=== PATIENT | male | born 1960 | race Caucasian/White ===

== ENCOUNTER → 2020-11-13 02:35 | Outpatient (CLI) | payer MEDICARE, SELFPAY ==
[2020-11-13 20:23] LABS: SARS-CoV-2 RNA PCR Negative
== END ==
PROVIDERS: PCP Emergency Medicine; Visit Provider Internal Medicine Gastroenterology
DX: Z01.812 Encounter for preprocedural laboratory examination (principal); Z20.822 Contact with and (suspected) exposure to COVID-19
CPT/HCPCS: C9803; U0003; U0005

== ENCOUNTER 2020-11-17 01:31 | Day surgery (SDC) | payer MEDICARE, SELFPAY ==
[2020-11-03 14:32] VITALS: BMI 33.7
[2020-11-17 07:59] VITALS: BP 140/80; PULSE 77; RESP 18; TEMP 37.1; O2SAT 98; BMI 33.4
[2020-11-17 08:12] LABS: Glucose Point of Care 326 (65-105)
[2020-11-17] MEDS: LACTATED RINGERS 1,000 ML 150 ML IV CONT (08:12)
--- NOTE | 2020-11-17 08:16 | PM.HPGS ---
History of Present Illness History of Present Illness Consent: Risks, benefits, and alternatives have been discussed and questions answered. Patient agrees to proceed with procedure. Chief complaint: neoplasm screening Narrative: Trevin Thomas Jr. is a 60 year old male referred for colon cancer screening. Review of Systems Review of Systems: All systems reviewed & are unremarkable except as noted in HPI and below PMFSH Past Medical History Medical History HTN (hypertension) Social History Social History Smoking status: Never smoker Alcohol intake: never Substance use: never Substance use type: does not use Living arrangements: with family Spiritual care concerns: No Meds Home Medications and Allergies Home Medications Medication Instructions Recorded Confirmed Type albuterol sulfate 90 mcg/actuation See Rx Instructions .ROUTE .COMPLEX 08/05/19 11/17/20 History aerosol inhaler sitagliptin 100 mg tablet 100 mg PO DAILY 08/05/19 11/17/20 History glimepiride 4 mg tablet See Rx Instructions .ROUTE 03/29/20 11/17/20 Rx .COMPLEX #90 tablet metformin 1,000 mg tablet See Rx Instructions .ROUTE 03/29/20 11/17/20 Rx .COMPLEX #180 tablet lisinopril 20 mg tablet 20 mg PO DAILY #90 tablet 04/22/20 11/17/20 Rx simvastatin 10 mg tablet 10 mg PO DAILY #90 tablet 04/22/20 11/17/20 Rx omeprazole [Prilosec] 40 mg PO DAILY 11/03/20 11/17/20 History Allergies Allergy/AdvReac Type Severity Reaction Status Date / Time Penicillins Allergy Unknown Unknown Verified 11/17/20 07:57 Vital Signs Vital Signs - 24 hr 11/17/20 07:59 Temperature 37.1 C Pulse Rate 77 Respiratory Rate 18 Blood Pressure 140/80 Pulse Oximetry 98 Exam Const: General: alert Orientation/consciousness: patient oriented x3 Resp: Auscultation: clear to auscultation bilaterally Cardio: Rhythm: regular rhythm GI: GI Palp: Yes Soft to palpation and No Tenderness to palpation present (GI) Neuro: General: patient oriented x3
--- NOTE | 2020-11-17 08:40 | WPDANESEPPF ---
Anes - Initial Pre Proc Eval Procedure: Operation Date: 11/17/20 09:00 Proposed Procedures p Screening Colonoscopy - Luis Ch MD Date/Time: 11/17/20 08:40 Surgeon: Luis Ch MD Pre Op Diagnosis: neoplasm screening Patient Data Age: 60 Gender: M Height: 6 ft Weight: 111.7 kg Last Vital Signs Temp 98.7 F 11/17/20 07:59 Pulse 77 11/17/20 07:59 Resp 18 11/17/20 07:59 BP 140/80 11/17/20 07:59 Pulse Ox 98 11/17/20 07:59 Allergies Allergy/AdvReac Type Severity Reaction Status Date / Time Penicillins Allergy Unknown Unknown Verified 11/17/20 07:57 Home Medications Medication Instructions Recorded Confirmed Type albuterol sulfate 90 mcg/actuation See Rx Instructions .ROUTE .COMPLEX 08/05/19 11/17/20 History aerosol inhaler sitagliptin 100 mg tablet 100 mg PO DAILY 08/05/19 11/17/20 History glimepiride 4 mg tablet See Rx Instructions .ROUTE 03/29/20 11/17/20 Rx .COMPLEX #90 tablet metformin 1,000 mg tablet See Rx Instructions .ROUTE 03/29/20 11/17/20 Rx .COMPLEX #180 tablet lisinopril 20 mg tablet 20 mg PO DAILY #90 tablet 04/22/20 11/17/20 Rx simvastatin 10 mg tablet 10 mg PO DAILY #90 tablet 04/22/20 11/17/20 Rx omeprazole [Prilosec] 40 mg PO DAILY 11/03/20 11/17/20 History Laboratory Tests 11/17/20 08:07 POC Capillary Glucose 326 mg/dl H mg/dl (65-105) Patient hx anesthesia problems: none Family hx anesthesia problems: none PMFSH Past Medical History Medical History HTN (hypertension) Social History Social History Smoking status: Never smoker Alcohol intake: never Substance use: never Substance use type: does not use Living arrangements: with family Spiritual care concerns: No Anes - Eval Final PreProcedure Day of Procedure 11/17/20 08:40 Patient weight: obese Heart: regular rate and rhythm Lungs: clear to auscultation Airway: Mallampati scale class III Neurological: alert and oriented Last oral intake: >/= 8 hours ASA classification: III Emergent: no Anesthetic plan: proceed Anesthesia type and monitoring: general GIVS (Accu check 326; used 7-up for prep) and standard monitoring Informed Consent: The patient's anesthetic plan and its attendant risks and benefits were discussed with the patient/family/POA. Questions were solicited and answers provided to the satisfaction of the patient/family/POA.
[2020-11-17 09:09] VITALS: BP 110/68; PULSE 75; RESP 25; O2SAT 95
[2020-11-17 09:18] VITALS: BP 121/76; PULSE 74; RESP 23; O2SAT 95
[2020-11-17 09:29] VITALS: BP 120/78; PULSE 70; RESP 22; O2SAT 97
== END 2020-11-17 09:44 | disposition home or self-care (01) ==
PROVIDERS: PCP Emergency Medicine; Visit Provider Internal Medicine Gastroenterology
PROC: 0DJD8ZZ Inspection of Lower Intestinal Tract, Via Natural or Artificial Opening Endoscopic (ICD-10-PCS; CPT 45378; principal; 2020-11-17 09:00)
DX: Z12.11 Encounter for screening for malignant neoplasm of colon (principal); I10 Essential (primary) hypertension; Z79.84 Long term (current) use of oral hypoglycemic drugs; Z79.51 Long term (current) use of inhaled steroids; E66.9 Obesity, unspecified; Z68.33 Body mass index [BMI] 33.0-33.9, adult
CPT/HCPCS: G0121; 82948; J2704; J7120

== ENCOUNTER 2023-02-08 11:42 | Outpatient (CLI) | payer MEDICARE, SELFPAY ==
--- NOTE | ~2023-02-08 | XR_ITS ---
Lumbosacral Spine: AP and lateral views Clinical History: Pain Findings: Mild to moderate compression fracture of L1 present. Probable minimal compression fracture the suprapubic region of L2. There is mild facet arthropathy from L4 through S1. There is moderate de generative disc narrowing at L1-L2. The sacroiliac joints are normally outlined. Impression: Compression fractures of L1 and L2, as detailed above. Mild degenerative spondylosis, as above. Reviewed, dictated and finalized at location M. Impression: Compression fractures of L1 and L2, as detailed above. Mild degenerative spondylosis, as above.
--- NOTE | ~2023-02-08 | XR_ITS ---
Thoracic spine: Clinical Indication: Back pain AP and lateral views were performed. There are compression fracture deformities of T10, T11, and T12, age indeterminate. There is normal a lignment of the vertebrae no subluxation evident. There are bridging anterior osteophytes from T9 thr ough T12, compatible DISH. The intervertebral disc spaces appear normal. Paravertebral soft tissues a ppear normal. Impression: Compression fractures of T10, T11, and T12, age indeterminate. DISH of the lower thoracic spine. Reviewed, dictated and finalized at location M. Impression: Compression fractures of T10, T11, and T12, age indeterminate. DISH of the lower thoracic spine.
== END 2023-02-08 11:43 | disposition home or self-care (01) ==
PROVIDERS: PCP Emergency Medicine; Visit Provider Emergency Medicine
DX: M48.14 Ankylosing hyperostosis [Forestier], thoracic region (principal); M47.896 Other spondylosis, lumbar region
CPT/HCPCS: 72070; 72100

== ENCOUNTER 2023-03-22 12:42 | Outpatient (CLI) | payer MEDICARE, SELFPAY ==
--- NOTE | ~2023-03-22 | MR_ITS ---
EXAMINATION: MR lumbar spine wo con DATE: 03/22/2023 13:40 INDICATION: Back pain. Collapsed vertebra, not elsewhere classified. TECHNIQUE: Magnetic resonance imaging (MRI) of the lumbar spine was performed without intravenous con trast. Sequences included sagittal T2-weighted FSE, sagittal T2-weighted FS FSE, sagittal T1-weighted FSE, and axial T2-weighted FSE. COMPARISON: Lumbar spine radiograph 02/08/2023 FINDINGS: There is 7 degrees levocurvature of lumbar spine. There is chronic anterior wedging of T11- L1 vertebral bodies. There is 3 mm retrolisthesis of L1 on L2. There is mildly decreased disc height at L1-L2 with endplate remodeling. The distal spinal cord signal intensity is normal. The conus medul moreno is at T12-L1. The following disc levels are specifically discussed: L1-L2: The disc is bulging and has an annular fissure. There is mild bilateral facet joint osteoarthr itis. There is mild bilateral neural foraminal stenosis. There is mild central canal stenosis. L2-L3: The disc is bulging. There is mild bilateral facet joint osteoarthritis. There is mild bilater al neural foraminal stenosis. There is mild central canal stenosis. L3-L4: The disc is bulging. There is mild bilateral facet joint osteoarthritis. There is mild bilater al neural foraminal stenosis. There is no central canal stenosis. L4-L5: The disc is bulging. There is severe bilateral facet joint osteoarthritis. There is mild bilat eral neural foraminal stenosis. There is mild central canal stenosis. L5-S1: The disc does not extend beyond the endplate margin. There is severe bilateral facet joint ost eoarthritis. There is no neural foraminal stenosis. There is no central canal stenosis. IMPRESSION: 1. Moderate lumbar spondylosis. Reviewed, dictated and finalized at location L.
--- NOTE | ~2023-03-22 | MR_ITS ---
EXAMINATION: MR thoracic spine wo con DATE: 03/22/2023 13:41 INDICATION: Thoracic compression fractures TECHNIQUE: Magnetic resonance imaging (MRI) of the thoracic spine was performed without intravenous c ontrast. Sagittal localizer T1-weighted FSE of the cervicothoracic spine was obtained. Sequences incl uded sagittal T2-weighted FSE, sagittal T2-weighted FS FSE, sagittal T1-weighted FSE and axial T1-alejandro ghted SE. Postcontrast sequences included axial T2-weighted FSE, sagittal T1-weighted FS FSE, and axi al T1-weighted FS SE. COMPARISON: CT abdomen pelvis dated 01/25/2013 FINDINGS: 10 degrees lower thoracic dextroscoliosis. One-2 mm retrolisthesis T12 on L1. 2 mm retrolisthesis L1 on L2. There is also mild kyphosis in the lower thoracic spine related to chronic compression fractur es with approximately 1/4 anterior vertebral body height loss at T11, T12 and L1. There is T2 hyperin tense edema-like signal change along the inferior endplate of L1 and at the margins of a Schmorl's no de along the superior endplate of L2 with no interval change in the Schmorl's node or degree of verte bral body height loss at L1 to suggest acute fracture. Several additional small Schmorl's nodes in th e more cephalad thoracic spine. Moderate disc height loss at T4-T5 through T9-T10 and at T11-T12 thro ugh L1-L2. T1 hyperintense hemangiomas at L1. No other pathologic marrow replacing process. Small dis c protrusions from T4-T5 through T8-T9. Disc bulges at T11-T12 and T12-L1. Annular fissure with disc extrusion at L1-L2 with disc material extending up to 3 mm cephalad and caudal to the level of the en dplates. These result in multilevel mild central canal stenosis which is greatest at L1-L2. There is slight indentation of the ventral surface of the cord associated with the disc protrusions on the rig ht at T5-T6, and the left at T7-T8 and bilaterally at T4-T5. There is normal spinal cord signal. The conus terminates at L1. There is multilevel thoracic facet osteoarthritis, mild in the upper two thir ds of the thoracic spine and moderate to severe in the lower thoracic spine resulting in mild neural foraminal stenosis on the right at T9-T10 through T11-T12 and on the left at T9-T10 and T10-T11. T2 h yperintense right renal cysts the largest measuring 1.2 cm maximal diameter. Paravertebral soft tissu es are otherwise unremarkable. IMPRESSION: 1. Moderate thoracic spondylosis with chronic compression fractures at T11-L1. Reviewed, dictated and finalized at location A.
== END 2023-03-22 12:43 | disposition home or self-care (01) ==
PROVIDERS: PCP Emergency Medicine; Visit Provider Emergency Medicine
DX: S22.000A Wedge compression fracture of unspecified thoracic vertebra, initial encounter for closed fracture (principal); M43.04 Spondylolysis, thoracic region; M48.56XA Collapsed vertebra, not elsewhere classified, lumbar region, initial encounter for fracture; M43.06 Spondylolysis, lumbar region
CPT/HCPCS: 72146; 72148

== ENCOUNTER 2024-08-05 08:17 | Outpatient (CLI) | payer MEDICARE, SELFPAY ==
--- NOTE | 2024-08-05 08:26 | EST_ITS ---
Patient Info Name: Trevin Thomas Age: 63 years : 1960 Gender: Male Ht: 72 in Wt: 249 lbs BSA: 2.43 m2 Exam Date: 08/05/2024 9:07 AM Exam Location: Echo Lab Patient Status: Outpatient Admit Date: 08/05/2024 Staff Ordering Physician: Dalton Oliva MD Dimpling Machine Operator: Nadja Yin RDCS Attending Provider: Dalton Oliva MD Referring Physician: Hazel MUSA; Exercise Technologist: Freida Woods RDCS Exercise Physician: Garrett Alfaro DO Exam Type: CA stress echo Study Info Indications R06.09 - Other forms of dyspnea Treadmill exercise stress echocardiogram is performed. Summary 1. 1. Negative Alfonso exercise stress test for ischemic ST changes by ECG criteria. However, patient achieved only 82% MPHR for age group which reduces sensitivity of the test. 2. 2. Reduced functional capacity, achieving 7 METs of workload. 3. 3. Appropriate HR response to exercise. 4. 4. Appropriate HR recovery at 1 minute post exercise. 5. 5. Negative stress echocardiogram for ischemia by wall motion analysis. 6. 6. Patient informed of the above results. Stress Echo Findings Left Ventricle Appropriate increase in LV endocardial thickening with systole. Appropriate augmentation of contractility with systole. No wall motion abnormality. Left Ventricle Normal LV systolic function, no wall motion abnormality. Protocol: Alfonso Stress ECG Details Stage: REST Duration (min): 1 min : 11 sec Speed (mph): 0.0 Grade (%): 0 HR (bpm): 84 SBP (mmHg): 127 DBP (mmHg): 67 METS: --- Stage: REST Duration (min): 35 min : 49 sec Speed (mph): 0.0 Grade (%): 0 HR (bpm): 90 SBP (mmHg): 127 DBP (mmHg): 67 METS: --- Stage: STAGE 1 Duration (min): 1 min : 0 sec Speed (mph): 1.7 Grade (%): 10 HR (bpm): 103 SBP (mmHg): 127 DBP (mmHg): 67 METS: --- Stage: STAGE 1 Duration (min): 2 min : 0 sec Speed (mph): 1.7 Grade (%): 10 HR (bpm): 108 SBP (mmHg): 127 DBP (mmHg): 67 METS: --- Stage: STAGE 1 Duration (min): 3 min : 0 sec Speed (mph): 1.7 Grade (%): 10 HR (bpm): 113 SBP (mmHg): 170 DBP (mmHg): 74 METS: --- Stage: STAGE 2 Duration (min): 1 min : 0 sec Speed (mph): 2.5 Grade (%): 12 HR (bpm): 119 SBP (mmHg): 170 DBP (mmHg): 74 METS: --- Stage: STAGE 2 Duration (min): 2 min : 0 sec Speed (mph): 2.5 Grade (%): 12 HR (bpm): 123 SBP (mmHg): 174 DBP (mmHg): 73 METS: --- Stage: STAGE 2 Duration (min): 2 min : 23 sec Speed (mph): 0.0 Grade (%): 0 HR (bpm): 128 SBP (mmHg): 174 DBP (mmHg): 73 METS: --- Stage: RECOVERY Duration (min): 0 min : 36 sec Speed (mph): 0.0 Grade (%): 0 HR (bpm): 120 SBP (mmHg): 174 DBP (mmHg): 73 METS: --- Stage: RECOVERY Duration (min): 1 min : 36 sec Speed (mph): 0.0 Grade (%): 0 HR (bpm): 112 SBP (mmHg): 174 DBP (mmHg): 73 METS: --- Stage: RECOVERY Duration (min): 2 min : 36 sec Speed (mph): 0.0 Grade (%): 0 HR (bpm): 106 SBP (mmHg): 165 DBP (mmHg): 70 METS: --- Stage: RECOVERY Duration (min): 3 min : 3 sec Speed (mph): 0.0 Grade (%): 0 HR (bpm): 104 SBP (mmHg): 165 DBP (mmHg): 70 METS: --- Rest HR: 90 bpm Peak HR: 129 bpm Rest Sys BP: 127 mmHg Peak Sys BP: 174 mmHg Max Pred HR: 157 bpm % Max Pred HR: 82 % Target HR: 133 bpm Max RPP: 22,446 bpm*mmHg Sargent Score: 3 Termination Reason: Reached target heart rate or workload Cardiac Symptoms: Shortness of breath Max ST Seg Deviation: 0.50 mm Total Time: 5 min : 23 sec [place] BP: 67 mmHg [place] BP: 73 mmHg Angina Score: None Total METS: 7.1 Resting ECG Sinus rhythm, IRBBB. Stress ECG No ST changes. Arrhythmias None. Report Signatures Stress ECG Echo
== END 2024-08-05 08:18 | disposition home or self-care (01) ==
LOC: ANHCARD 08:18
PROVIDERS: PCP Emergency Medicine; Visit Provider Emergency Medicine
DX: R06.09 Other forms of dyspnea (principal); I10 Essential (primary) hypertension
CPT/HCPCS: 93351

== ENCOUNTER 2024-09-29 11:38 | Inpatient (IN) | payer MEDICARE, SELFPAY ==
[2024-09-29] VITALS (7 sets, daily range): BP systolic 142–176; BP diastolic 64–76; PULSE 65–80; RESP 16–28; TEMP 36.6–36.9; O2SAT 21–98
--- NOTE | ~2024-09-29 | XR_ITS ---
EXAMINATION: [id number] DATE: 10/06/2024 16:36 INDICATION: Right pleural effusion status post thoracentesis. TECHNIQUE: A single frontal view of the chest was obtained. COMPARISON: Chest CT 10/02/2024, chest single view 10/03/2024 FINDINGS: There are small pleural effusions. There is mild atelectasis at the lung bases. No pneumoth orax. The heart size is normal. IMPRESSION: 1. Small pleural effusions with improvement on the right status post thoracentesis. 2. Mild atelectasis at the lung bases. Reviewed, dictated and finalized at location A. MENDER IMPRESSION: 1. Small pleural effusions with improvement on the right status post thoracente sis. 2. Mild atelectasis at the lung bases.
--- NOTE | ~2024-09-29 | XR_ITS ---
CHEST RADIOGRAPH, PA AND LATERAL CLINICAL HISTORY: pleural effusion . COMPARISON: 09/29/2024 TECHNIQUE: PA and lateral views of the chest. FINDINGS Postthoracentesis imaging demonstrated decreased right-sided pleural effusion when compared with prev ious examination without right-sided pneumothorax. Remainder of examination is unchanged. IMPRESSION: As above. Reviewed, dictated and finalized at location A. IMPRESSION: As above.
--- NOTE | ~2024-09-29 | XR_ITS ---
EXAMINATION: XR chest 1V portable DATE: 10/03/2024 08:50 INDICATION: Pleural effusion. TECHNIQUE: A single frontal view of the chest was obtained. COMPARISON: Chest single view 09/30/2024, chest CT 10/02/2024 FINDINGS: There is a moderate-sized right pleural effusion. There are airspace opacities at the lung bases, likely atelectasis. No pneumothorax. The heart size is normal. IMPRESSION: 1. Stable moderate-sized right pleural effusion. Reviewed, dictated and finalized at location A. YSTEMS ENGINEER
--- NOTE | ~2024-09-29 | XR_ITS ---
Portable chest x-ray Comparison: 10/06/2024 Clinical History: Pleural effusion Findings: Possible minimal right pleural effusion, unchanged. Lungs are otherwise clear. Cardiomedi astinal silhouette is stable. Bones and soft tissues are unremarkable. Impression: Possible minimal right pleural effusion, unchanged. Reviewed, dictated and finalized at location M. LOADER Impression: Possible minimal right pleural effusion, unchanged.
--- NOTE | ~2024-09-29 | US_ITS ---
Limited Abdominal Sonogram: Real-time sonographic imaging of the right upper quadrant was performed. Clinical History: Thrombocytopenia Findings: The liver demonstrates nodular contour without mass lesion or biliary dilatation. Small am ount of upper abdominal ascites present.. Main portal vein demonstrates normal direction of flow. The gallbladder is well distended, and appears normal with no evidence of gallstone or wall thickening. The common bile duct measures 3 mm. The visualized aorta and IVC are unremarkable. Pancreas obscured by bowel gas shadowing. Spleen is enlarged, measuring 20.6 cm in length. Impression: Cirrhotic liver with associated splenomegaly, as detailed above. Small amount of abdominal ascites. Reviewed, dictated and finalized at location . ELLER Impression: Cirrhotic liver with associated splenomegaly, as detailed above. Small amount of abdominal ascites.
--- NOTE | ~2024-09-29 | CT_ITS ---
EXAMINATION: CTA chest PE protocol DATE: 09/29/2024 20:14 LOOPER FIXER INDICATION: Positive d-dimer with shortness of breath TECHNIQUE: Computed tomographic angiography (CTA) of the chest was performed with 100 mL Omnipaque-35 0 intravenous contrast. The dose-length product was 690.60 mGy-cm. Maximum intensity projection 3D-re constructions of the aorta and other arteries were constructed by the technologist on a separate work station. COMPARISON: None. FINDINGS/OBSERVATIONS: PULMONARY ARTERIES: No filling defect is identified within the main or proximal pulmonary artery. The main pulmonary artery is not enlarged. THORACIC AORTA: No aneurysmal dilatation or dissection is present. The great vessels are intact LUNGS: Large right-sided pleural effusion with adjacent compressive atelectasis. The rest of the lungs are clear MEDIASTINUM: No morphologically suspicious or pathologically enlarged lymph nodes are identified with in the mediastinum or bilateral axilla. BONES OF THE CHEST: No acute fracture. No significant degenerative disease. No lytic or blastic lesions. HEART: The heart is within the upper limits of normal for size, without pericardial effusion. IMPRESSION: No pulmonary embolus. No thoracic aortic dissection. Large right-sided pleural effusion with adjacent compressive atelectasis. Reviewed, dictated and finalized at location A. ER FIXER
--- NOTE | ~2024-09-29 | US_ITS ---
EXAMINATION: US thoracentesis DATE: 09/30/2024 14:53 INDICATION: pleural effusion TECHNIQUE: The procedure and its risks, benefits, and alternatives were discussed with the patient. P otential risks discussed included bleeding, infection, and pneumothorax. The patient understood the r isks and agreed to proceed. The skin was prepped and draped in sterile fashion. 1% lidocaine was used for local anesthesia. Under ultrasound guidance, a 5 Fr catheter with trochar was advanced into the right pleural effusion. Fluid was aspirated. The catheter was removed, and a dressing was applied. Th ere were no immediate complications. FINDINGS: Ultrasound images demonstrate a right pleural effusion and the catheter within the fluid. IMPRESSION: 1. Successful ultrasound-guided thoracentesis yielding 1000 mL of priti-colored fluid. Reviewed, dictated and finalized at location A. S ASSISTANT INSTITUTIONAL SALES IMPRESSION: 1. Successful ultrasound-guided thoracentesis yielding 1000 mL of priti-colore d fluid.
--- NOTE | ~2024-09-29 | US_ITS ---
EXAMINATION: US thoracentesis DATE: 10/06/2024 17:16 INDICATION: pleural effusion TECHNIQUE: The procedure and its risks, benefits, and alternatives were discussed with the patient. P otential risks discussed included bleeding, infection, and pneumothorax. The patient understood the r isks and agreed to proceed. The skin was prepped and draped in sterile fashion. 1% lidocaine was used for local anesthesia. Under ultrasound guidance, a 5 Fr catheter with trochar was advanced into the right pleural effusion. Fluid was aspirated. The catheter was removed, and a dressing was applied. Th ere were no immediate complications. FINDINGS: Ultrasound images demonstrate a right pleural effusion and the catheter within the fluid. IMPRESSION: 1. Successful ultrasound-guided thoracentesis yielding 500 mL of priti-colored fluid. Reviewed, dictated and finalized at location A. GER DAIRY
--- NOTE | ~2024-09-29 | XR_ITS ---
EXAMINATION: XR chest 2V DATE: 09/29/2024 14:48 INDICATION: Hemoptysis. TECHNIQUE: Frontal and lateral views of the chest were obtained. COMPARISON: Chest 2 views 09/27/2024 FINDINGS: There is a small right pleural effusion. There are airspace opacities at right lung base. N o pneumothorax. The heart size is normal. There is chronic anterior wedging of multiple vertebral bod ies. IMPRESSION: 1. Stable airspace opacities are lung base, consistent with atelectasis versus pneumonia. 2. Stable small right pleural effusion. Reviewed, dictated and finalized at location A. R AND BLENDER
--- NOTE | ~2024-09-29 | CT_ITS ---
EXAMINATION:CT diagnostic chest wo con DATE: 10/02/2024 13:25 INDICATION: Pleural effusion. TECHNIQUE: Computed tomography (CT) of the chest was performed without intravenous contrast. Automate d exposure control and iterative reconstruction technique were employed. The dose-length product (DLP ) was 389.13 mGy-cm. COMPARISON: Chest CT 09/29/2024 FINDINGS: There is a moderate-sized right pleural effusion. There is a trace left pleural effusion. T here is a 4 mm nodule in right middle lobe, likely benign. There are dependent airspace opacities missy aterally, likely atelectasis. The heart size is normal. There are coronary artery calcifications. No pericardial effusion. There is liver surface nodularity, consistent with cirrhosis. Splenomegaly is n oted. 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 There is mild periportal lymphadenopathy, likely reactive. Th ere is a small volume of ascites. There is edema in the fat in the abdomen. There is mild thoracic sp ondylosis. There is chronic anterior wedging of multiple vertebral bodies. IMPRESSION: 1. Moderate-sized right pleural effusion. 2. Cirrhosis of the liver with portal venous hypertension. 3. Small volume of ascites. Reviewed, dictated and finalized at location A. EGNATOR
--- OUTSIDE RECORDS SUMMARY | 2024-09-29 12:21 | XMS_ITS | Referral Summary ---
Author Organization [facility] [address] Address [address] [place] [address] Care Team Providers Care Hadoop Architect Name Role Phone Dalton Oliva MD Primary Care Provide r Allergies Active Allergy Reactions Criticality Noted Date Comments Penicillins Unknown 09/25/2017 Shrimp Unknown 09/25/2017 Medications simvastatin (ZOCOR) 10 mg tablet Take 10 mg by mouth nightly. Active SITagliptin (JANUVIA) 50 mg tabletIndication s:type 2 diabetes mellitus Take 50 mg by mouth daily. Active glimepiride (AMARYL) 2 mg tabletIndication s:type 2 diabetes mellitus Take 2 mg by mouth daily before breakfast. Active lisinopril (PRINIVIL,ZESTRI L) 20 mg tablet Take 20 mg by mouth daily. Active metFORMIN (GLUCOPHAGE) 500 mg tablet Take 500 mg by mouth 2 (two) times a day with meals. 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 Gender Identity Not on file Sexual Orientation Not on file Last Filed Vital Signs Vital Sign Reading Time Taken Comments Blood Pressure 128/80 09/25/2017 2:05 PM LABORATORY CUREMAN Pulse 77 09/25/2017 2:05 PM LABORATORY CUREMAN Temperature - - Respiratory Rate - - Oxygen Saturation 96% 09/25/2017 2:05 PM LABORATORY CUREMAN Inhaled Oxygen Concentration - - Weight 118.8 kg (262 lb) 09/25/2017 2:05 PM LABORATORY CUREMAN Height 180.3 cm (5' 11 ) 09/25/2017 2:05 PM LABORATORY CUREMAN Body Mass Index 36.54 09/25/2017 2:05 PM LABORATORY CUREMAN Plan of Treatment Not on file Insurance MEDICARE Care Teams Hadoop Architect Relationship Specialty Start Date End Date Dalton Oliva MD [address] [place] [address] PCP - General 09/03/13
--- OUTSIDE RECORDS SUMMARY | 2024-09-29 12:21 | XMS_ITS | Clinical Summary ---
Author Organization [facility] [address] Address [address] [place] [address] Care Team Providers Care Emergency Communications Officer Name Role Phone Dalton Oliva MD Primary [...] Noted Date Diagnosed Date Chest discomfort 09/25/2017 Medical History Medical History Date Comments Diabetes mellitus (HCC) Hyperlipidemia Hypertension Family History Medical History Relation Name Comments COPD Father Cancer Mother Relation Name Status Comments Father Mother Social History Tobacco Use Types Packs/Day Years Used Date Smoking Tobacco: Never Smokeless Tobacco: Never Alcohol Use Standard Drinks/Week Comments No 0 (1 standard drink = 0.6 oz pur e alcohol) Personal Safety Answer Date Recorded Getting School Help Needed Not on file 11/03 Sex and Gender Information Value Date Recorded Sex Assigned at Not on file Legal 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 Gender Identity Not on file Sexual Orientation Not on file Obstetrics History Last Filed Vital Signs Vital Sign Reading Time Taken Comments Blood Pressure 128/80 09/25/2017 2:05 PM CAE ENGINEER Pulse 77 09/25/2017 2:05 PM CAE ENGINEER Temperature - - Respiratory Rate - - Oxygen Saturation 96% 09/25/2017 2:05 PM CAE ENGINEER Inhaled Oxygen Concentration - - Weight 118.8 kg (262 lb) 09/25/2017 2:05 PM CAE ENGINEER Height 180.3 cm (5' 11 ) 09/25/2017 2:05 PM CAE ENGINEER Body Mass Index 36.54 09/25/2017 2:05 PM CAE ENGINEER Plan of Treatment Not on file Insurance MEDICARE Care Teams Emergency Communications Officer Relationship Specialty Start Date End Date Dalton Oliva MD [address] [place] [address] PCP - General 09/03/13
--- NOTE | 2024-09-29 13:51 | ED_ITS ---
HPI - SOB/Dyspnea General Chief Complaint: Shortness of Breath/Dyspnea <Suma Brioens PA-C - Last Filed: 10/01/24 18:41> Stated Complaint: shortness of breath, coughing up blood x1 day <Suma Briones PA-C - Last Filed: 10/01/24 18:41> Time Seen by Provider: 09/29/24 13:51 <Suma Briones PA-C - Last Filed: 10/01/24 18:41> Focused HPI: This is a 63 year old male that presents to the ER for hemoptysis. This started this morning. Reports he was recently diagnosed with pneumonia 2 days ago and started on oral antibiotics. Reports shortness of breath. Reports some chest tightness. Denies fever. GENERAL: Well-appearing, well-nourished, and in no acute distress. HEAD: Normocephalic, atraumatic. CHEST: Clear to auscultation. ?No respiratory distress. HEART: Regular rate and rhythm.? NEURO: ?Alert and oriented x3. Patient screened in triage and initial orders placed.? ?Additional care and disposition to be based upon?diagnostic testing and treatment. <Suma Briones PA-C - Last Filed: 10/01/24 18:41> History of Present Illness HPI Narrative: Agree with the workup as described above. Patient has history of hypertension, hyperlipidemia type 2 diabetes but no history of any malignancy or cancer. No risk factors for DVT or PE noted. <Jacob Briones MD - Last Filed: 09/29/24 21:16> Related Data Home Medications: Home Medications ?Medication ?Instructions ?Recorded ?Confirmed ?Last Taken ?Type doxycycline hyclate 100 mg capsule 100 mg PO Q12H 09/29/24 09/29/24 09/28/24 History prednisone 50 mg tablet 50 mg PO DAILY 09/29/24 09/29/24 09/28/24 History <JHON Najera Last Filed: 10/01/24 18:41> Allergies/Adverse Reactions: Allergies Allergy/AdvReac Type Severity Reaction Status Date / Time Penicillins Allergy Unknown Unknown Verified 09/30/24 14:06 <Suma Briones PA-C - Last Filed: 10/01/24 18:41> Review of Systems 2 Review of Systems: As reviewed above in HPI <Jacob Briones MD - Last Filed: 09/29/24 21:16> [facility] Past Medical History Medical History: Medical History (Updated 10/01/24 @ 18:41 by Suma Briones PA-C) Pancytopenia Bronchitis Balanitis circinata Type 2 diabetes mellitus Diabetes mellitus HTN (hypertension) HLD (hyperlipidemia) <Suma Briones PA-C - Last Filed: 10/01/24 18:41> Surgical History Surgical History: Surgical History History of hernia repair History of eye surgery x19 <Suma Briones PA-C - Last Filed: 10/01/24 18:41> Family History Family History: Family History Father Family history of chronic obstructive pulmonary disease, Onset Age: 72 Mother Family history of malignant neoplasm, Onset Age: 68 <Suma Briones PA-C - Last Filed: 10/01/24 18:41> Social History Social History: Social History Smoking status: Former smoker Alcohol intake: former Substance use: former Substance use type: does not use Last use: back in college over 40 years ago Do You Feel Safe in your Home?: Yes Lack of Transportation: No Lack of Food: Never True Current Housing: I Have Housing Concerned About Future Housing: No Difficulty Paying Gas/Electric Bills: No Difficulty Paying for Meds: YES Currently Unemployed: No Education: Associate Degree Difficulty w/ Childcare or Family Care: No Living arrangements: with family Spiritual care concerns: No <Suma Briones PA-C - Last Filed: 10/01/24 18:41> Exam 2 Narrative: GENERAL: Ill-appearing but not any acute distress, answering all questions appropriately HEAD: [Normocephalic, atraumatic.] EYES: Left eye blind and sclerosed, right eye with full range of motion and reactive pupil ENT: Nares clear, no rhinorrhea or epistaxis. Mucous membranes moist. NECK: Supple. CHEST: Coarse breath sounds in the bases more so on the right side compared to the left, no appreciable wheezing, tachypnea is noted but no conversational dyspnea. HEART: [Regular rate and rhythm]. No murmur heard. [Normal peripheral pulses.] ABDOMEN: [Soft, nondistended], [nontender], [No rigidity or guarding] EXTREMITIES: Normal range of motion. [No edema.] SKIN: Warm, dry, no rash. NEURO: [No focal deficits]. Alert and oriented [x3.] PSYCH: [Normal mood and affect.] <Jacob Briones MD - Last Filed: 09/29/24 21:16> Course Vital Signs Vital signs: Vital Signs Temperature 97.8 F 09/29/24 12:33 Pulse Rate 80 09/29/24 12:33 Respiratory Rate 20 09/29/24 12:33 Blood Pressure 153/64 H 09/29/24 12:33 Pulse Oximetry 94 09/29/24 12:33 Oxygen Delivery Room Air 09/29/24 12:33 Temperature 97.3 F L 10/01/24 14:00 Pulse Rate 77 10/01/24 16:00 Respiratory Rate 20 10/01/24 14:05 Blood Pressure 136/59 L 10/01/24 14:00 Pulse Oximetry 96 10/01/24 14:00 Oxygen Delivery Room Air 10/01/24 13:51 <Suma Briones PA-C - Last Filed: 10/01/24 18:41> Vital Signs Temperature 97.8 F 09/29/24 12:33 Pulse Rate 80 09/29/24 12:33 Respiratory Rate 20 09/29/24 12:33 Blood Pressure 153/64 H 09/29/24 12:33 Pulse Oximetry 94 09/29/24 12:33 Oxygen Delivery Room Air 09/29/24 12:33 Temperature 97.3 F L 10/01/24 14:00 Pulse Rate 77 10/01/24 16:00 Respiratory Rate 20 10/01/24 14:05 Blood Pressure 136/59 L 10/01/24 14:00 Pulse Oximetry 96 10/01/24 14:00 Oxygen Delivery Room Air 10/01/24 13:51 <Jacob Briones MD - Last Filed: 09/29/24 21:16> MDM - SOB/Dyspnea MDM Narrative Medical decision making narrative: 63-year-old male presenting for coughing up flex of rust-colored versus dark red blood. He was recently diagnosed with a pneumonia 2 days prior and started on oral antibiotics but is not sure which kind. He states he has been feeling subjective shortness of breath and dyspnea. He is slightly dyspnea care with the tachypnea in the low 20s but saturating 97% on room air without any tachycardia. Blood pressure within normal range without any severe elevation. He is ill-appearing but not in any distress. Respirations are noted to have some coarse breath sounds more so on the right side compared to left. No wheezing appreciated. Considerations presently for pneumonia, influenza, COVID, RSV. Intrathoracic process such as pleural effusion or thromboembolic event such as a PE or less likely. No chest discomfort, nausea, vomiting, abdominal pain or back pain. Was otherwise in his normal state of health. Workup ordered including a CBC, CMP, PT, PTT, D-dimer, chest x-ray and EKG. Chest x-ray appears to have some pleural effusion versus pneumonia on the right side. He was placed on azithromycin and Rocephin and given a fluid bolus. Workup shows pancytopenia with a hemoglobin of 11.4, white count 2.6, platelet count of 34,000. D-dimer markedly elevated 2.53, normal coag studies otherwise. Electrolytes within normal range, normal renal function, normal glucose and normal hepatic function. COVID flu and RSV swabs are negative. CT angiography was ordered given his high D-dimer with suspicion for potential intrathoracic process. CTA shows no PE, no thoracic aortic dissection but there is a large right-sided pleural effusion with some adjacent compressive atelectasis. Heart within normal limits without any pericardial effusion. This could be a parapneumonic infection given his symptoms and less likely to be a hemothorax given the informed nature of the fluid. Patient has not had any hemoptysis while here in the emergency department. I discussed the case with the hospitalist and he recommended getting Hematology-Oncology on board for his pancytopenia. Spoke to Dr. Garcia from Heme/onc who recommended trending his CBC to make sure that there is improvement with treatment of a potential infection/PNA. Thinks this could be a consumptive process but will plan for potential bone marrow biopsy inpatient. Recommendations that if his platelets were to go under 20,000 to transfuse at that time. Recommend trending and seeing if they go above 50,000 where he will feel comfortable with a thoracentesis. Will see the patient on inpatient basis for further workup. Spoke again to the hospitalist Dr. Allison and relayed these recommendations. Patient was accepted to a telemetry monitored bed at this time. Patient is informed of the plan and comfortable with admission. He was doing better after antibiotics and felt subjectively less dyspneic and did not have any further episodes of hemoptysis during the ED visit. <Jacob Briones MD - Last Filed: 09/29/24 21:16> Medical Records Attestation: I reviewed the patient's medical records. <Jacob Briones MD - Last Filed: 09/29/24 21:16> Lab Data Attestation: I reviewed the patient's lab results. <Jacob Briones MD - Last Filed: 09/29/24 21:16> Result diagrams: 10/01/24 07:18 10/01/24 07:18 <Suma Briones PA-C - Last Filed: 10/01/24 18:41> Labs: Lab Results 09/29/24 09/29/24 Range/Units 15:35 18:35 WBC 2.6 L (4.5-10.0) K/mm3 RBC 3.74 L (4.6-6.20) M/mm3 Hgb 11.4 L (14.0-18.0) g/dL Hct 34.8 L (42.0-52.0) % MCV 93.0 (80-100) fl MCH 30.5 (26-34) pg MCHC 32.8 (32-36) g/dl RDW 15.1 H (11.5-14.5) % Plt Count 34 L (150-375) k/mm3 MPV 12.0 H (7.4-10.4) fl Immature Gran % (Auto) Not Reportable Neut % (Auto) Not Reportable Lymph % (Auto) Not Reportable Summers % (Auto) Not Reportable Eos % (Auto) Not Reportable Baso % (Auto) Not Reportable Lymph # (Auto) Not Reportable Summers # (Auto) Not Reportable Eos # (Auto) Not Reportable Baso # (Auto) Not Reportable Abs Immat Gran (auto) Not Reportable Absolute Neuts (auto) Not Reportable Absolute Nucleated RBC Not Reportable Total Counted 100 Neutrophils % (Manual) 53 (46-73) % Lymphocytes % (Manual) 35.0 (18-44) % Monocytes % (Manual) 12 H (3-9) % Nucleated RBC % Not Reportable Abs Lymphs (Manual) 0.91 L (1.1-4.5) K/mm3 Abs Monocytes (Manual) 0.31 (0.1-0.90) K/mm3 Platelet Estimate Decreased (Adequate) Large Platelets Present % Immature Plt Fraction 6.0 (0.9-11.2) % Anisocytosis 1+ Schistocytes None seen PT 14.0 (11.1-14.7) Seconds INR 1.1 APTT 29.2 (22.3-36.8) Seconds D-Dimer 2.53 H (<0.48) ug/mL Sodium 140 (137-145) mmol/L Potassium 3.7 (3.4-5.0) mmol/L Chloride 108 H (98-107) mmol/L Carbon Dioxide 23 (22-30) mmol/L Anion Gap 9 (4-12) mmol/L BUN 12 (9-20) mg/dL Creatinine 0.57 L (0.7-1.3) mg/dL Estim Creat Clear Calc 145 ml/min Estimated GFR > 60 (59 - ) Glucose 85 (65-110) mg/dL Calcium 8.3 L (8.4-10.2) mg/dL Total Bilirubin 1.1 (0.2-1.3) mg/dL AST 74 H (17-59) U/L ALT 43 (6-50) U/L Alkaline Phosphatase 125 (38-126) U/L Total Protein 7.0 (6.3-8.2) g/dL Albumin 3.4 L (3.5-5.1) g/dL Influenza A (RT-PCR) Negative (Negative) Influenza B (RT-PCR) Negative (Negative) RSV (RT-PCR) Negative (Negative) SARS-CoV-2 RNA (RT-PCR) Negative (Negative) <Suma Briones PA-C - Last Filed: 10/01/24 18:41> Lab Results 09/29/24 09/29/24 Range/Units 15:35 18:35 WBC 2.6 L (4.5-10.0) K/mm3 RBC 3.74 L (4.6-6.20) M/mm3 Hgb 11.4 L (14.0-18.0) g/dL Hct 34.8 L (42.0-52.0) % MCV 93.0 (80-100) fl MCH 30.5 (26-34) pg MCHC 32.8 (32-36) g/dl RDW 15.1 H (11.5-14.5) % Plt Count 34 L (150-375) k/mm3 MPV 12.0 H (7.4-10.4) fl Immature Gran % (Auto) Not Reportable Neut % (Auto) Not Reportable Lymph % (Auto) Not Reportable Summers % (Auto) Not Reportable Eos % (Auto) Not Reportable Baso % (Auto) Not Reportable Lymph # (Auto) Not Reportable Summers # (Auto) Not Reportable Eos # (Auto) Not Reportable Baso # (Auto) Not Reportable Abs Immat Gran (auto) Not Reportable Absolute Neuts (auto) Not Reportable Absolute Nucleated RBC Not Reportable Total Counted 100 Neutrophils % (Manual) 53 (46-73) % Lymphocytes % (Manual) 35.0 (18-44) % Monocytes % (Manual) 12 H (3-9) % Nucleated RBC % Not Reportable Abs Lymphs (Manual) 0.91 L (1.1-4.5) K/mm3 Abs Monocytes (Manual) 0.31 (0.1-0.90) K/mm3 Platelet Estimate Decreased (Adequate) Large Platelets Present % Immature Plt Fraction 6.0 (0.9-11.2) % Anisocytosis 1+ Schistocytes None seen PT 14.0 (11.1-14.7) Seconds INR 1.1 APTT 29.2 (22.3-36.8) Seconds D-Dimer 2.53 H (<0.48) ug/mL Sodium 140 (137-145) mmol/L Potassium 3.7 (3.4-5.0) mmol/L Chloride 108 H (98-107) mmol/L Carbon Dioxide 23 (22-30) mmol/L Anion Gap 9 (4-12) mmol/L BUN 12 (9-20) mg/dL Creatinine 0.57 L (0.7-1.3) mg/dL Estim Creat Clear Calc 145 ml/min Estimated GFR > 60 (59 - ) Glucose 85 (65-110) mg/dL Calcium 8.3 L (8.4-10.2) mg/dL Total Bilirubin 1.1 (0.2-1.3) mg/dL AST 74 H (17-59) U/L ALT 43 (6-50) U/L Alkaline Phosphatase 125 (38-126) U/L Total Protein 7.0 (6.3-8.2) g/dL Albumin 3.4 L (3.5-5.1) g/dL Influenza A (RT-PCR) Negative (Negative) Influenza B (RT-PCR) Negative (Negative) RSV (RT-PCR) Negative (Negative) SARS-CoV-2 RNA (RT-PCR) Negative (Negative) <Jacob Briones MD - Last Filed: 09/29/24 21:16> Imaging Data Attestation: I personally reviewed and interpreted this imaging study as follows: < Jacob Briones MD - Last Filed: 09/29/24 21:16> My impression: Impressions Chest X-Ray 09/29/24 14:49 IMPRESSION: 1. Stable airspace opacities are lung base, consistent with atelectasis versus pneumonia. 2. Stable small right pleural effusion. Chest CTA 09/29/24 20:12 IMPRESSION: No pulmonary embolus. No thoracic aortic dissection. Large right-sided pleural effusion with adjacent compressive atelectasis. <Jacob Briones MD - Last Filed: 09/29/24 21:16> Critical Care Time Critical Care Time Critical Care Time: No <Suma Briones PA-C - Last Filed: 10/01/24 18:41> Discharge Plan Discharge Clinical Impression: Pleural effusion on right, Acute dyspnea Pneumonia Qualifiers: Pneumonia type: due to unspecified organism Laterality: right Lung location: u nspecified part of lung Qualified Code(s): J18.9 - Pneumonia, unspecified organism <Suma Briones PA-C - Last Filed: 10/01/24 18:41> Patient Disposition: Still a Patient <Suma Briones PA-C - Last Filed: 10/01/24 18:41> Condition: Stable <Suma Briones PA-C - Last Filed: 10/01/24 18:41> Time of Disposition: 21:16 <Suma Briones PA-C - Last Filed: 10/01/24 18:41> 21:16 <Jacob Briones MD - Last Filed: 09/29/24 21:16>
--- NOTE | 2024-09-29 13:56 | ECG_ITS ---
Test Date: 2024-09-29 15:40:22 Measurements Intervals [place] Rate: 81 P: 69 NV: 190 QRS: -5 QRSD: 110 T: 43 QT: 411 QTc: 479 Interpretive Statements SINUS RHYTHM WITH SINUS ARRHYTHMIA BASELINE ARTIFACT- I, II, III, AVR NORMAL ECG No previous ECG available for comparison Electronically Signed On 09-29-2024 16:59:45 SCALEHOUSE ATTENDANT by Garrett Alfaro D.O.
[2024-09-29 16:24] LABS: Influenza A QL RT-PCR Negative (Negative); Influenza B QL RT-PCR Negative (Negative); RSV RNA, RT-PCR Negative (Negative); SARS-CoV-2 RNA PCR Negative (Negative)
--- OUTSIDE RECORDS SUMMARY | 2024-09-29 17:50 | XMS_ITS | Referral Summary ---
Author Organization [facility] [address] Address [address] [place] [address] Care Team Providers Care Security Trainer Name Role Phone Dalton Oliva MD Primary [...] on file Legal Sex Male 3:09 AM [employer]ICAN [employer] Gender Identity Not on file Sexual Orientation Not on file Last Filed Vital Signs Vital Sign Reading Time Taken Comments Blood Pressure 128/80 09/25/2017 2:05 PM [employer]ICAN [employer]KER Pulse 77 09/25/2017 2:05 PM M[employer]ICAN [employer]KER Temperature - - Respiratory Rate - - Oxygen Saturation 96% 09/25/2017 2:05 PM MEXICAN FO[employer] MAKER Inhaled Oxygen Concentration - - Weight 118.8 kg (262 lb) 09/25/2017 2:05 PM [employer]ICAN FO[employer] MAKER Height 180.3 cm (5' 11 ) 09/25/2017 2:05 PM M[employer]ICAN FO[employer] MAKER Body Mass Index 36.54 09/25/2017 2:05 PM M[employer]ICAN FOOD MAKER Plan of Treatment Not on file Insurance MEDICARE Care Teams Security Trainer Relationship Specialty Start Date End Date Dalton Oliva MD [address] [place] [address] PCP - General 09/03/13
--- OUTSIDE RECORDS SUMMARY | 2024-09-29 17:50 | XMS_ITS | Clinical Summary ---
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 Gender Identity Not on file Sexual Orientation Not on file Obstetrics History Last Filed Vital Signs Vital Sign Reading Time Taken Comments Blood Pressure 128/80 09/25/2017 2:05 PM VIRTUALIZATION ENGINEER Pulse 77 09/25/2017 2:05 PM VIRTUALIZATION ENGINEER Temperature - - Respiratory Rate - - Oxygen Saturation 96% 09/25/2017 2:05 PM VIRTUALIZATION ENGINEER Inhaled Oxygen Concentration - - Weight 118.8 kg (262 lb) 09/25/2017 2:05 PM VIRTUALIZATION ENGINEER Height 180.3 cm (5' 11 ) 09/25/2017 2:05 PM VIRTUALIZATION ENGINEER Body Mass Index 36.54 09/25/2017 2:05 PM VIRTUALIZATION ENGINEER Plan of Treatment Not on file Insurance MEDICARE Care Teams Compression Molding Machine Operator Relationship Specialty Start Date End Date Dalton Oliva MD [address] [place] [address] PCP - General 09/03/13
[2024-09-29] MEDS: LACTATED RINGERS 1,000 ML 999 ML IV CONT (17:58)
[2024-09-29] MEDS: cefTRIAXone 2 GM/NS 100 ML 2 GM/100 ML BAG IVPB (17:59)
[2024-09-29 18:49] LABS: Hematocrit 34.8 % (42.0-52.0); Hemoglobin 11.4 g/dL (14.0-18.0); Mean Corpuscular HGB Conc 32.8 g/dl (32-36); Mean Corpuscular Hemoglobin 30.5 pg (26-34); Platelet Count Result 34 k/mm3 (150-375); Red Blood Count 3.74 M/mm3 (4.6-6.20); Red Cell Distribution Width 15.1 % (11.5-14.5); White Blood Count 2.6 K/mm3 (4.5-10.0)
[2024-09-29 18:58] LABS: INR 1.1; Partial Thromboplastin Time 29.2 Seconds (22.3-36.8)
[2024-09-29 19:03] LABS: Alanine Aminotransferase 43 U/L (6-50); Albumin Level 3.4 g/dL (3.5-5.1); Alkaline Phosphatase 125 U/L (38-126); Anion Gap 9 mmol/L (4-12); Aspartate Amino Transferase 74 U/L (17-59); Bilirubin,Total 1.1 mg/dL (0.2-1.3); Blood Urea Nitrogen 12 mg/dL (9-20); Calcium 8.3 mg/dL (8.4-10.2); Carbon Dioxide 23 mmol/L (22-30); Chloride 108 mmol/L (98-107); Estimated CRCL calculation 145 ml/min; Estimated Glomerular Filt Rate > 60; Glucose 85 mg/dL (65-110); Potassium 3.7 mmol/L (3.4-5.0); Sodium 140 mmol/L (137-145)
[2024-09-29 19:04] LABS: D Dimer 2.53 ug/mL (<0.48)
[2024-09-29] MEDS: AZITHROMYCIN 500 MG/NS 250 ML 500 MG/250 ML BAG 250 MG IVPB (19:11)
[2024-09-29 19:32] LABS: Lymphocytes Absolute Manual 0.91 K/mm3 (1.1-4.5); Monocytes Absolute Manual 0.31 K/mm3 (0.1-0.90); Monocytes Percent Manual 12 % (3-9); Neutrophils Percent Manual 53 % (46-73); Platelet Estimate Decreased (Adequate); Total Cells Counted 100
[2024-09-29 19:33] LABS: Anisocytosis 1+; Large Platelets Present; Schistocytes None Seen
--- NOTE | 2024-09-29 23:41 | P.HP_ITS ---
H&P: HPI History of Present Illness Date/Time: 09/29/24 23:41 Chief Complaint: Sputum Narrative: This is a pleasant 63-year-old male with a history of obesity, mvp-eurhowa-ylaraqlzy diabetes mellitus, asthma, chronic hypertension, hyperlipidemia, history of cataract surgery at age 4 left eye now blind. Presents to [facility] on 09/29/2024 with complaint of bloody sputum. He reports presenting to an urgent care 2 days prior to admission for a cough and was diagnosed with pneumonia and prescribed antibiotics. On the day of admission in the morning he coughed up blood and motions with his fingers a small amount approximately 5 cc. Your workup demonstrated 97% O2 saturation on room air. Upon evaluation the patient was resting comfortably. WBC count 2.6, hemoglobin 11.4, platelet 34. D-dimer 2.53, serum creatinine 0.57, quad viral screen negative. CTA chest did not demonstrate PE or thoracic aortic dissection. Identifies a large right- sided pleural effusion with adjacent compressive atelectasis. Patient was given ceftriaxone and azithromycin as well as a 1 L normal saline bolus. Dr. Garcia consulted from ER due to pancytopenia. Recommended no platelet transfusion unless under 20 K. recommends trending platelet count with the hope platelets are above 50 K or we can perform thoracentesis. Review of Systems Review of Systems: All systems reviewed & are unremarkable except as noted in HPI and below (HPI) PMFSH Past Medical History Medical History Bronchitis Balanitis circinata Type 2 diabetes mellitus Diabetes mellitus HTN (hypertension) HLD (hyperlipidemia) Surgical History Surgical History History of hernia repair History of eye surgery x19 Family History Family History Father Family history of chronic obstructive pulmonary disease, Onset Age: 72 Mother Family history of malignant neoplasm, Onset Age: 68 Social History Social History Smoking status: Never smoker Alcohol intake: former Substance use: former Substance use type: crack/cocaine Last use: back in college over 40 years ago Current Housing: Decline to Answer Concerned About Future Housing: Decline to Answer Difficulty Paying Gas/Electric Bills: Decline to Answer Difficulty Paying for Meds: Decline to Answer Currently Unemployed: Decline to Answer Education: Decline to Answer Difficulty w/ Childcare or Family Care: Decline to Answer Living arrangements: with family Spiritual care concerns: No Meds Home Medications and Allergies Home Medications ?Medication ?Instructions ?Recorded ?Confirmed ?Type nystatin 100,000 unit/gram topical 1 applic topical TID #30 grams 06/09/22 09/29/24 Rx cream amlodipine 5 mg tablet See Rx Instructions .Route 01/15/24 09/29/24 Rx .COMPLEX #90 tabs simvastatin 10 mg tablet See Rx Instructions .Route 04/10/24 09/29/24 Rx .COMPLEX #90 tabs lisinopril 20 mg tablet See Rx Instructions .Route 05/19/24 09/29/24 Rx .COMPLEX #90 tabs semaglutide 14 mg tablet (Rybelsus) 14 mg PO DAILY 90 days #90 tabs 06/02/24 09/29/24 Rx albuterol sulfate 90 mcg/actuation See Rx Instructions .Route 07/03/24 09/29/24 Rx aerosol inhaler .COMPLEX #25.5 grams glimepiride 4 mg tablet See Rx Instructions .Route 08/11/24 09/29/24 Rx .COMPLEX #90 tabs metformin 1,000 mg tablet See Rx Instructions .Route 09/26/24 09/29/24 Rx .COMPLEX #180 tabs doxycycline hyclate 100 mg capsule 100 mg PO Q12H 09/29/24 09/29/24 History prednisone 50 mg tablet 50 mg PO DAILY 09/29/24 09/29/24 History Allergies Allergy/AdvReac Type Severity Reaction Status Date / Time Penicillins Allergy Unknown Unknown Verified 09/29/24 17:10 Vital Signs Vital Signs - 24 hr 09/29/24 12:33 09/29/24 16:54 09/29/24 16:54 Temperature 97.8 F 98.5 F Pulse Rate 80 77 Respiratory Rate 20 28 H Blood Pressure 153/64 H 176/76 H Pulse Oximetry 94 97 98 Oxygen Delivery Room Air Room Air Room Air 09/29/24 18:57 09/29/24 19:12 09/29/24 19:13 Temperature 98 F Pulse Rate 79 68 Respiratory Rate 26 H 25 H Blood Pressure 152/68 H 142/72 H Pulse Oximetry 95 97 97 Oxygen Delivery Room Air 09/29/24 19:13 09/29/24 21:05 09/29/24 23:01 Temperature 98.1 F 98.1 F Pulse Rate 71 65 67 Respiratory Rate 23 H 16 Blood Pressure 143/67 H 142/76 H Pulse Oximetry 97 21 L Oxygen Delivery Exam Const: General: comfortable and no acute distress Neck: Neck: supple Resp: Effort & Inspection: normal respiratory effort Other: Diminished lung sounds right lung, scant expiratory wheeze Cardio: Rate: regular rate Rhythm: regular rhythm Heart sounds: no gallops, no murmurs and no rubs GI: GI Palp: Yes Soft to palpation and No Tenderness to palpation present (GI) Extrem: Other: 1+ H&P: Results Labs Labs: Short CBC 09/29/24 Range/Units 18:35 WBC 2.6 L (4.5-10.0) K/mm3 Hgb 11.4 L (14.0-18.0) g/dL Hct 34.8 L (42.0-52.0) % Plt Count 34 L (150-375) k/mm3 BMP 09/29/24 18:35 Sodium 140 Potassium 3.7 Chloride 108 H Carbon Dioxide 23 BUN 12 Creatinine 0.57 L Glucose 85 Calcium 8.3 L Liver Function 09/29/24 Range/Units 18:35 Total Bilirubin 1.1 (0.2-1.3) mg/dL AST 74 H (17-59) U/L ALT 43 (6-50) U/L Alkaline Phosphatase 125 (38-126) U/L Albumin 3.4 L (3.5-5.1) g/dL Assessment and Plan Assessment and plan (1) Hemoptysis: Code(s): R04.2 - Hemoptysis Status: Acute (2) Pleural effusion: Code(s): J90 - Pleural effusion, not elsewhere classified Status: Acute Plan This is a pleasant 63-year-old male with a history of obesity, wbp-ursjild-paenrmsku diabetes mellitus, asthma, chronic hypertension, hyperlipidemia, history of cataract surgery at age 4 left eye now blind. Presents to [facility] on 09/29/2024 with complaint of bloody sputum. He reports presenting to an urgent care 2 days prior to admission for a cough and was diagnosed with pneumonia and prescribed antibiotics. On the day of a dmission in the morning he coughed up blood and motions with his fingers a small amount approximately 5 cc. Your workup demonstrated 97% O2 saturation on room air. Upon evaluation the patient was resting comfortably. WBC count 2.6, hemoglobin 11.4, platelet 34. D-dimer 2.53, serum creatinine 0.57, quad viral screen negative. CTA chest did not demonstrate PE or thoracic aortic dissection. Identifies a large right- sided pleural effusion with adjacent compressive atelectasis. Patient was given ceftriaxone and azithromycin as well as a 1 L normal saline bolus. Dr. Garcia consulted from ER due to pancytopenia. Recommended no platelet transfusion unless under 20 K. recommends trending platelet count with the hope platelets are above 50 K or we can perform thoracentesis. ----- Hematology will see in consultation. Will trend CBC. Diagnostic and therapeutic thoracentesis ordered pending repeat platelet count. His hemoptysis is small and he has not had any episodes in only reports dry cough since admission. Hemoglobin acceptable at 11.4. Possibly a parapneumonic effusion, will add metronidazole in addition to ceftriaxone and azithromycin. Effusion does not appear loculated. Accu-Cheks a.c. HS with insulin sliding scale. Restart SYSTEMS TECHNOLOGIST amlodipine and lisinopril. ----- SCDs. Saline lock IV. Patient wishes to be full code. Hospitalist [facility] Advance Care Plan I have confirmed that the patient's Advanced Care Plan is present, code status is documented, or surrogate decision maker is listed in patient medical record.: Yes Medication Reconciliation I have utilized all available resources to obtain, update and review the patients current medications (includes all prescriptions, OTC, herbals, cannabis, and nutritional supplements).: Yes
[2024-09-29] MEDS: metroNIDAZOLE 500 MG/ISO 100ML 500 MG/100 ML BAG 100 MG IVPB (23:53)
[2024-09-29] MEDS: amLODIPine BESYLATE 5 MG TABLET PO (23:55)
[2024-09-30] VITALS (28 sets, daily range): BP systolic 135–162; BP diastolic 61–86; PULSE 60–93; RESP 16–23; TEMP 36.5–36.8; O2SAT 92–100
--- NOTE | 2024-09-30 | ECHO_ITS ---
Patient Info Name: Trevin Thomas Age: 63 years : 1960 Gender: Male Ht: 71 in Wt: 255 lbs BSA: 2.45 m2 HR: 76 bpm BP: 145 / 74 mmHg Technical Quality: Poor Exam Date: 09/30/2024 3:33 PM Exam Location: Echo Lab Patient Status: Inpatient Admit Date: 09/29/2024 Staff Ordering Physician: Gary Dejesus MD Plumbing And Heating Mechanic: Natalya Rodriguez RDCS Attending Provider: Lida Allison MD Exam Type: CA echo dop color flow w con Study Info Indications - R/O CHF Complete two-dimensional, color flow and Doppler transthoracic echocardiogram is performed with contrast to opacify the left ventricle and to improve the deliniation of the left ventricle endocardial borders. Contrast/Agitated Saline Contrast/Ag. Saline: Definity Amount: 2.00 ml Existing IV Access: Yes Reason for Poor Study: poor echocardiographic windows Summary 1. Definity contrast administered improved wall motion interpretation. 2. Left ventricular chamber dimension is normal. 3. Left ventricular systolic function is normal, estimated at 60-65%. 4. There is moderate concentric increased left ventricular wall thickness. 5. The left ventricular diastolic function is grade I diastolic dysfunction. 6. E/e' 6 is not elevated. 7. Left atrial chamber dimension is mildly enlarged. 8. Right atrial chamber dimension is mildly enlarged. 9. No pulmonary hypertension, estimated pulmonary arterial systolic pressure is 28 mmHg. Left Ventricle E/e' 6 is not elevated. Definity contrast administered improved wall motion interpretation. Left ventricular chamber dimension is normal. Left ventricular systolic function is normal, estimated at 60-65%. There is moderate concentric increased left ventricular wall thickness. The left ventricular diastolic function is grade I diastolic dysfunction. Right Ventricle Right ventricular systolic function is normal and with normal TAPSE 2.3 cm. Right ventricular chamber dimension is normal. Left Atria Left atrial chamber dimension is mildly enlarged. Right Atria Right atrial chamber dimension is mildly enlarged. Aortic Valve The aortic valve is trileaflet. There is no aortic valve stenosis. There is no aortic valve regurgitation. Pulmonic Valve There is no pulmonic regurgitation. Mitral Valve There is no mitral valve stenosis. There is no mitral valve regurgitation. Tricuspid Valve There is no tricuspid valve regurgitation. No pulmonary hypertension, estimated pulmonary arterial systolic pressure is 28 mmHg. Pericardium/Pleural There is no pericardial effusion. Inferior Vena Cava Normal inferior vena cava with >50% collapse upon inspiration consistent with normal right atrial pressure, 5 mmHg. Aorta The aortic root size at the sinus of Valsalva is normal. Left Ventricular Outflow Tract Name Value Normal LVOT 2D LVOT Diameter 1.91 cm LVOT Doppler LVOT Peak Gradient 8 mmHg LVOT Mean Gradient 5 mmHg LVOT VTI 31.06 cm LVOT VTI/AV VTI Ratio 0.95 LVOT Stroke Volume 89.15 ml LVOT CO 7.07 l/min LVOT CI 2.89 L/min/m2 Pulmonic Valve Name Value Normal RVOT Doppler RVOT Peak Gradient 3 mmHg PV Doppler PV Peak Gradient 4 mmHg Mitral Valve Name Value Normal MV Doppler MV Decel [place] 415.67 cm/s2 MV PHT 0 s MV Area (PHT) 3.96 cm2 4.00-5.00 MV Diastolic Function MV E Peak Velocity 79.63 cm/s MV A Peak Velocity 93.83 cm/s MV E/A 0.85 MV Decel Time 0 s MV Annular TDI MV E/e' (Septal) 7.44 <=8.00 MV E/e' (Lateral) 6.31 <=8.00 MV E/e' (Average) 6.88 Tricuspid Valve Name Value Normal TV Regurgitation Doppler TR Peak Velocity 237.40 cm/s TR Peak Gradient 23 mmHg Estimated PAP/RSVP RA Pressure 5 mmHg <=5 PA Systolic Pressure 28 mmHg <36 RV Systolic Pressure 28 mmHg <36 Aorta Name Value Normal Ascending Aorta Ao Root Diameter (MM) 4.76 cm Ao Root Diam Index (MM) 1.94 cm/m2 Aortic Valve Name Value Normal AV Doppler AV Peak Velocity 151.89 cm/s AV Peak Gradient 9 mmHg AV Mean Gradient 6 mmHg AV VTI 32.55 cm AV Area (Cont Eq VTI) 2.74 cm2 >=3.00 AV Area (Cont Eq Brandon) 2.65 cm2 AV Regurgitation 2D LVOT Area 2.87 cm2 Ventricles Name Value Normal LV Dimensions 2D/MM IVS Diastolic Thickness (2D) 1.38 cm 0.60-1.00 LVID Diastole (2D) 4.74 cm 4.20-5.80 LVIW Diastolic Thickness (2D) 1.92 cm 0.60-1.00 LVID Systole (2D) 2.99 cm 2.50-4.00 LVOT Diameter 1.91 cm LV Mass (2D Cubed) 344.03 g 88.00-224.00 LV Mass Index (2D Cubed) 0.01 g/cm2 0.00-0.01 Relative Wall Thickness (2D) 0.81 LV Fractional Shortening/Ejection Fraction 2D/MM LV Fractional Shortening (2D) 38 % 25-43 LV EF (2D Teicholz) 68 % 52-72 LV Diastolic Volume (4C MOD) 157.99 ml LV EF (4C MOD) 66 % LV Diastolic Volume (2C MOD) 100.42 ml LV EF (2C MOD) 53 % LV Diastolic Volume (BP MOD) 133.02 ml 62.00-150.00 LV Diastolic Volume Index (BP MOD) 0.05 l/m2 0.03-0.07 LV Systolic Volume (BP MOD) 53.19 ml 21.00-61.00 LV Systolic Volume Index (BP MOD) 0.02 l/m2 0.01-0.03 LV EF (BP MOD) 60 % 52-72 LV Diastolic Length (4C) 8.99 cm LV Systolic Length (4C) 7.75 cm LV Stroke Volume (4C MOD) 104.82 ml Atria Name Value Normal LA Dimensions LA Dimension (MM) 3.56 cm 3.00-4.10 LA Volume (4C A-L) 95.49 ml LA Volume (BP A-L) 88.32 ml RA Dimensions RA Area (4C) 26.35 cm2 <=18.00 Report Signatures
[2024-09-30] MEDS: SIMVASTATIN 10 MG TABLET PO ×2 (00:07→11:12)
[2024-09-30 00:11] LABS: Glucose Point of Care 88 mg/dl (65-105)
[2024-09-30 05:01] LABS: Eosinophils Percent Auto 1.7 % (0-4.4); Hematocrit 37.1 % (42.0-52.0); Hemoglobin 11.7 g/dL (14.0-18.0); Immature Platelet Fraction Pct 5.3 % (0.9-11.2); Lymphocytes Absolute Auto 0.98 K/mm3 (0.9-3.2); Lymphocytes Percent Auto 41.9 % (18.3-44.2); Mean Corpuscular HGB Conc 31.5 g/dl (32-36); Mean Corpuscular Volume 95.1 fl (80-100); Mean Platelet Volume 12.6 fl (7.4-10.4); Monocytes Absolute Auto 0.2 K/mm3 (0.1-0.6); Monocytes Percent Auto 9.8 % (2.6-8.5); Neutrophils Absolute Auto 1.1 K/mm3 (1.3-6.7); Neutrophils Percent Auto 46.6 % (45.5-73.1); Red Cell Distribution Width 15.2 % (11.5-14.5); White Blood Count 2.3 K/mm3 (4.5-10.0)
[2024-09-30 05:08] LABS: Anion Gap 10 mmol/L (4-12); Blood Urea Nitrogen 11 mg/dL (9-20); Calcium 8.3 mg/dL (8.4-10.2); Carbon Dioxide 21 mmol/L (22-30); Chloride 107 mmol/L (98-107); Estimated CRCL calculation 152 ml/min; Estimated Glomerular Filt Rate > 60; Glucose 87 mg/dL (65-110); Magnesium 1.7 mg/dL (1.6-2.3); Potassium 3.9 mmol/L (3.4-5.0); Sodium 138 mmol/L (137-145)
[2024-09-30 05:12] LABS: Platelet Count Result 9 k/mm3 (150-375)
[2024-09-30 05:13] LABS: Platelet Estimate Decreased (Adequate)
[2024-09-30 05:14] LABS: Anisocytosis 1+; Hypochromasia 1+; Schistocytes None Seen
--- NOTE | 2024-09-30 05:57 | PC.NURSE ---
Consent for blood products transfusion received from patient. Patient is A&Ox4 at time of signing consent form.
[2024-09-30] MEDS: metroNIDAZOLE 500 MG/ISO 100ML 500 MG/100 ML BAG 100 MG IVPB ×3 (06:02→21:27)
[2024-09-30] MEDS: SODIUM CHLORIDE 0.9% IV 250 ML 30 ML IV CONT (07:53)
[2024-09-30 08:47] LABS: Glucose Point of Care 106 mg/dl (65-105)
[2024-09-30] MEDS: lisinopriL 20 MG TABLET PO (09:35)
[2024-09-30] MEDS: amLODIPine BESYLATE 5 MG TABLET PO (09:36)
--- NOTE | 2024-09-30 09:52 | P.PNIM_ITS ---
Progress Note: A&P Assessment and Plan (1) Hemoptysis: Code(s): R04.2 - Hemoptysis Status: Acute (2) Pleural effusion: Code(s): J90 - Pleural effusion, not elsewhere classified Status: Acute Plan This is a pleasant 63-year-old male with a history of obesity, [id number] diabetes mellitus, asthma, chronic hypertension, hy perlipidemia, history of cataract surgery at age 4 left eye now blind. Presents to [facility] on 09/29/2024 with complaint of bloody sputum. He reports presenting to an urgent care 2 days prior to admission for a cough and was diagnosed with pneumonia and prescribed antibiotics. On the day of admission in the morning he coughed up blood and motions with his fingers a small amount approximately 5 cc. Your workup demonstrated 97% O2 saturation on room air. Upon evaluation the patient was resting comfortably. WBC count 2.6, hemoglobin 11.4, platelet 34. D-dimer 2.53, serum creatinine 0.57, quad viral screen negative. CTA chest did not demonstrate PE or thoracic aortic dissection. Identifies a large right- sided pleural effusion with adjacent compressive atelectasis. Patient was given ceftriaxone and azithromycin as well as a 1 L normal saline bolus. Dr. Garcia consulted from ER due to pancytopenia. Recommended no platelet transfusion unless under 20 K. recommends trending platelet count with the hope platelets are above 50 K or we can perform thoracentesis. ----- Hematology will see in consultation. Will trend CBC. Diagnostic and therapeutic thoracentesis ordered pending repeat platelet count. His hemoptysis is small and he has not had any episodes in only reports dry cough since admission. Hemoglobin acceptable at 11.4. Possibly a parapneumonic effusion, will add metronidazole in addition to ceftriaxone and azithromycin. Effusion does not appear loculated. Accu-Cheks a.c. HS with insulin sliding scale. Restart DRIER OPERATOR amlodipine and lisinopril. ----- Pancytopenia: Status post 2U PLT Neutropenic precautions On Ceftriaxone and Azithromycin Watch for any spontaneous bleeding, NO OBVIOUS BLEEDING NOW Appreciate lottery manager consultation, consider possible myelodysplastic syndrome, bone marrow biopsy White cell of 2.3. Afebrile, no sign of infection hemoglobin 11.7 SCDs. Patient wishes to be full code. Subjective Date/time seen: 09/30/24 09:52 Interval history: Patient reports that he had a hemodialysis yesterday. Patient reports his PCP is Dr. Oliva and he saw him about 2 months ago and everything was normal. As per Patient also recently went underwent cardiac stress test which was normal. Currently patient was admitted due to pancytopenia and oncology is consulted and appreciate recommendation. Today patient had 2 units of platelet transfusion due to platelet is 9K which dropped from 34. Review of Systems Review of Systems: All systems reviewed & are unremarkable except as noted in HPI and below (HPI) Exam Const: General: comfortable and no acute distress Neck: Neck: supple Resp: Effort & Inspection: normal respiratory effort Other: Diminished lung sounds right lung, scant expiratory wheeze Cardio: Rate: regular rate Rhythm: regular rhythm Heart sounds: no gallops, no murmurs and no rubs Extrem: Other: 1+ Objective Data Vital Signs Vital Signs: Vital Signs - 24 hr 09/29/24 12:33 09/29/24 16:54 09/29/24 16:54 Temperature 97.8 F 98.5 F Pulse Rate 80 77 Respiratory Rate 20 28 H Blood Pressure 153/64 H 176/76 H Pulse Oximetry 94 97 98 Oxygen Delivery Room Air Room Air Room Air 09/29/24 18:57 09/29/24 19:12 09/29/24 19:13 Temperature 98 F Pulse Rate 79 68 Respiratory Rate 26 H 25 H Blood Pressure 152/68 H 142/72 H Pulse Oximetry 95 97 97 Oxygen Delivery Room Air 09/29/24 19:13 09/29/24 21:05 09/29/24 23:01 Temperature 98.1 F 98.1 F Pulse Rate 71 65 67 Respiratory Rate 23 H 16 Blood Pressure 143/67 H 142/76 H Pulse Oximetry 97 21 L Oxygen Delivery 09/30/24 02:01 09/30/24 03:03 09/30/24 04:56 Temperature 98.1 F 98.1 F 98.1 F Pulse Rate 67 67 69 Respiratory Rate 16 18 22 H Blood Pressure 135/68 145/82 H 143/74 H Pulse Oximetry 95 95 94 Oxygen Delivery 09/30/24 07:06 09/30/24 07:45 09/30/24 07:51 Temperature 97.8 F 98.3 F Pulse Rate 60 65 Respiratory Rate 20 20 Blood Pressure 136/72 147/78 H Pulse Oximetry 95 95 96 Oxygen Delivery Room Air 09/30/24 08:03 09/30/24 09:03 09/30/24 09:25 Temperature 97.9 F 98 F 98.3 F Pulse Rate 71 74 73 Respiratory Rate 20 20 21 H Blood Pressure 149/78 H 153/84 H 150/79 H Pulse Oximetry 96 95 94 Oxygen Delivery 09/30/24 09:26 Temperature 98.3 F Pulse Rate 74 Respiratory Rate 21 H Blood Pressure 150/79 H Pulse Oximetry 94 Oxygen Delivery Intake/Output Intake/Output: Intake & Output 09/27/24 09/28/24 09/29/24 09/30/24 23:59 23:59 23:59 23:59 Intake Total 1350 758 Balance 1350 758 Meds/Results Medications: Active Medications Generic Name Dose Route Start Last Admin Trade Name Freq PRN Reason Stop Dose Admin Acetaminophen 650 mg 09/29/24 21:05 Acetaminophen 325 Mg Tablet PO Q4H PRN Mild Pain (1-3) or Fever Albuterol 2 puff 09/29/24 23:36 Albuterol Sulfate (*Sp) Aerosol 1 Puff INHALATION Q6HRT PRN Shortness Of Breath Amlodipine Besylate 5 mg 09/29/24 23:40 09/30/24 09:36 Amlodipine Besylate 5 Mg Tablet PO 5 mg DAILY AIDAN Administration Dextrose 12.5 gm 09/29/24 23:37 Dextrose 50% 25 Gm/50 Ml Syringe IV PUSH PRN PRN Hypoglycemia Protocol Glucose 15 gm 09/29/24 23:37 Glucose Oral Gel 15 Gm Of Glucse In 37.5 Gm Tube PO PRN PRN Hypoglycemia Protocol Dextrose 1,000 mls @ 100 mls/hr 09/29/24 23:37 Dextrose 5% 1,000 Ml IVPB PRN PRN Hypoglycemia Protocol Metronidazole 500 mg in 100 mls @ 100 mls/hr 09/29/24 23:40 09/30/24 06:59 Flagyl 500 Mg/Iso Soln 100 Ml IVPB Infused Q8HR AIDAN Infusion Sodium Chloride 250 mls @ 30 mls/hr 09/30/24 05:39 09/30/24 07:53 Normal Saline Iv IV CONT 09/30/24 13:58 30 mls/hr .Q8H20M STA Administration Insulin Aspart 2 - 5 units 09/30/24 08:00 09/30/24 08:46 Insulin Aspart (*Bkc) 100 Units/Ml SUB-Q Not Given TIDWM [facility] Protocol Insulin Aspart 1 - 2 units 09/30/24 21:00 Insulin Aspart (*Bkc) 100 Units/Ml SUB-Q HS [facility] Protocol Lisinopril 20 mg 09/30/24 09:00 09/30/24 09:35 Lisinopril 20 Mg Tablet PO 20 mg QAM AIDAN Administration Ondansetron HCl 4 mg 09/29/24 21:05 Ondansetron Inj 4 Mg/2 Ml Vial IV PUSH Q4H PRN Nausea Simvastatin 10 mg 09/29/24 23:40 09/30/24 00:07 Simvastatin 10 Mg Tablet PO 10 mg QAM [facility] Administration Radiology Results: ITS Impressions Chest X-Ray 09/29/24 14:49 IMPRESSION: 1. Stable airspace opacities are lung base, consistent with atelectasis versus pneumonia. 2. Stable small right pleural effusion. Chest CTA 09/29/24 20:12 IMPRESSION: No pulmonary embolus. No thoracic aortic dissection. Large right-sided pleural effusion with adjacent compressive atelectasis. Abdomen Ultrasound 09/30/24 08:11 Impression: Cirrhotic liver with associated splenomegaly, as detailed above. Small amount of abdominal ascites. Labs Labs: Laboratory Results - last 24 hr 09/29/24 09/29/24 09/30/24 15:35 18:35 00:09 WBC 2.6 L RBC 3.74 L Hgb 11.4 L Hct 34.8 L MCV 93.0 MCH 30.5 MCHC 32.8 RDW 15.1 H Plt Count 34 L MPV 12.0 H Immature Gran % (Auto) Not Reportable Neut % (Auto) Not Reportable Lymph % (Auto) Not Reportable [place] % (Auto) Not Reportable Eos % (Auto) Not Reportable Baso % (Auto) Not Reportable Lymph # (Auto) Not Reportable [place]ard # (Auto) Not Reportable Eos # (Auto) Not Reportable Baso # (Auto) Not Reportable Abs Immat Gran (auto) Not Reportable Absolute Neuts (auto) Not Reportable Absolute Nucleated RBC Not Reportable Total Counted 100 Neutrophils % (Manual) 53 Lymphocytes % (Manual) 35.0 Monocytes % (Manual) 12 H Nucleated RBC % Not Reportable Abs Lymphs (Manual) 0.91 L Abs Monocytes (Manual) 0.31 Platelet Estimate Decreased Large Platelets Present % Immature Plt Fraction 6.0 Hypochromasia Anisocytosis 1+ Schistocytes None seen PT 14.0 INR 1.1 APTT 29.2 D-Dimer 2.53 H Sodium 140 Potassium 3.7 Chloride 108 H Carbon Dioxide 23 Anion Gap 9 BUN 12 Creatinine 0.57 L Estim Creat Clear Calc 145 Estimated GFR > 60 Glucose 85 POC Capillary Glucose 88 Calcium 8.3 L Magnesium Total Bilirubin 1.1 AST 74 H ALT 43 Alkaline Phosphatase 125 Total Protein 7.0 Albumin 3.4 L Influenza A (RT-PCR) Negative Influenza B (RT-PCR) Negative RSV (RT-PCR) Negative SARS-CoV-2 RNA (RT-PCR) Negative Blood Type 09/30/24 09/30/24 09/30/24 04:55 05:47 08:44 WBC 2.3 L RBC 3.90 L Hgb 11.7 L Hct 37.1 L MCV 95.1 MCH 30.0 MCHC 31.5 L RDW 15.2 H Plt Count 9 L* D MPV 12.6 H Immature Gran % (Auto) 0.0 Neut % (Auto) 46.6 Lymph % (Auto) 41.9 Izard % (Auto) 9.8 H Eos % (Auto) 1.7 Baso % (Auto) 0.0 L Lymph # (Auto) 0.98 Izard # (Auto) 0.2 Eos # (Auto) 0.0 Baso # (Auto) 0.0 Abs Immat Gran (auto) 0.00 Absolute Neuts (auto) 1.1 L Absolute Nucleated RBC 0.000 Total Counted Neutrophils % (Manual) Lymphocytes % (Manual) Monocytes % (Manual) Nucleated RBC % 0.0 Abs Lymphs (Manual) Abs Monocytes (Manual) Platelet Estimate Decreased Large Platelets % Immature Plt Fraction 5.3 Hypochromasia 1+ Anisocytosis 1+ Schistocytes None seen PT INR APTT D-Dimer Sodium 138 Potassium 3.9 Chloride 107 Carbon Dioxide 21 L Anion Gap 10 BUN 11 Creatinine 0.54 L Estim Creat Clear Calc 152 Estimated GFR > 60 Glucose 87 POC Capillary Glucose 106 H Calcium 8.3 L Magnesium 1.7 Total Bilirubin AST ALT Alkaline Phosphatase Total Protein Albumin Influenza A (RT-PCR) Influenza B (RT-PCR) RSV (RT-PCR) SARS-CoV-2 RNA (RT-PCR) Blood Type A Positive Hospitalist MIPS Advance Care Plan I have confirmed that the patient's Advanced Care Plan is present, code status is documented, or surrogate decision maker is listed in patient medical record.: Yes Medication Reconciliation I have utilized all available resources to obtain, update and review the patients current medications (includes all prescriptions, OTC, herbals, cannabis, and nutritional supplements).: Yes
--- NOTE | 2024-09-30 10:11 | PC.NURSE ---
Pharmacy called d/t missing medication. Med will be sent.
--- NOTE | 2024-09-30 10:39 | PC.NURSE ---
Per Hospitalist, pt ordered meal tray.
[2024-09-30 12:23] LABS: Immature Platelet Fraction Pct 3.8 % (0.9-11.2); Mean Platelet Volume 10.5 fl (7.4-10.4); Platelet Count Result 60 k/mm3 (150-375)
[2024-09-30] MEDS: IPRATROPIUM 0.5 MG/ALBUTEROL SULFATE 2.5 MG AMPUL.NEB 3 ML INHALATION ×2 (13:18→20:35)
--- NOTE | 2024-09-30 14:06 | ADMGEN ---
This patient, Trevin Thomas Jr., was admitted to [facility] Surg Room 317-02. Patient/family oriented to hospital policies and general routines including ID bracelet, bed and alarms, visiting hours, pain management, procedures, bathroom and other care routines, personal items, smoking policy, room service/diet, and visiting hours. Information on how to activate the Rapid Response Team has been discussed. Patient/Family are encouraged to report perceived risks to care and to ask questions if they do not understand what they are told or what they should do.
[2024-09-30 15:05] LABS: pH Pleural Fluid > 7.500 (7.210-7.500)
[2024-09-30 15:40] LABS: Appearance Pleural Fluid Hazy (Clear); Color Pleural Fluid Yellow (Colorless); Nucleated Cell Pleural Fluid 308 /uL (0-1000); Pleural fluid source Pleural fluid
[2024-09-30 15:41] LABS: Lymphocytes Pleural Fluid 37 %; Macrophages Pleural Fluid 57 %; Neutrophils Pleural Fluid 6 % (0-25); RBC Pleural Fluid < 2000 /uL (0-10000)
[2024-09-30] MEDS: PERFLUTREN LIPID MICROSPHERES 1.5 ML VIAL DILUTED TO 10 ML TOTAL VOLUME IV PUSH (16:10)
--- NOTE | 2024-09-30 16:46 | IVDEFINITY ---
Prior to administration of IV Definity the patient was educated on the risks and benefits of the imaging enhancing agent including potential adverse side effects. The patient verbalized understanding. Allergies were verified. No exclusion criteria were identified and at least one of the following inclusion criteria were met: 1) physician request, 2) patient technically difficult to image (per the [place] [employer] guidelines of two or more segments not discernable within the apical view), or 3) questionable left ventricular function. ?
[2024-09-30 16:53] LABS: Lactate Dehydrogenase 206 U/L (120-246)
[2024-09-30 17:05] LABS: Glucose Point of Care 157 mg/dl (65-105)
[2024-09-30] MEDS: cefTRIAXone 2 GM/NS 100 ML 2 GM/100 ML BAG IVPB (17:14)
[2024-09-30] MEDS: AZITHROMYCIN 500 MG/NS 250 ML 500 MG/250 ML BAG 250 MG IVPB (17:57)
--- NOTE | 2024-09-30 18:27 | P.CONONC_ITS ---
Assessment and Plan Assessment and plan (1) Pancytopenia: Code(s): D61.818 - Other pancytopenia Status: Acute Plan This is a 63-year-old male with obesity type 2 diabetes, hypertension and asthma came into the hospital with complain of bloody sputum. He was diagnosed with upper respiratory infection/pneumonia and prescribed antibiotics Center. Patient denies any history of liver disease. He denies any history of malignancy. Abdominal ultrasound was performed that confirmed liver cirrhosis with splenomegaly and small abdominal ascites. Chest CTA showed large right- sided pleural effusion. Patient underwent thoracentesis with removal of 1 L of fluid. His pancytopenia is secondary to liver cirrhosis and worsening of thrombocytopenia could be secondary to superimposed autoimmune thrombocytopenia. Liver cirrhosis is likely secondary to obesity and fatty liver. I will order the workup for pancytopenia that would include iron studies vitamin B12 level as well as platelet antibodies for possible ITP. If platelet count drops again then will consider starting steroids for possible ITP.. No need for bone marrow biopsy testing at this time .We will wait on cytology from the pleural fluid. I have answered all the questions to patient's satisfaction. HPI Data of Consult Date/Time: 09/30/24 18:27 Requesting Physician: Lida Allison MD Primary Care Provider: Dalton Oliva MD Consult Narrative Narrative: Trevin Thomas Jr. is a 63 year old male with history of type 2 diabetes, asthma, hyperlipidemia and obesity came into the hospital with spitting blood on the sputum. He denies any melena hematochezia. He does have some cough and was previously diagnosed with pneumonia and prescribed antibiotics. He denies any previous history of liver disease. Denies any history of malignancy. [place] [address] with dropped to 9000. Patient received 2 units of platelet with improved platelet count up to 60,000. His hemoglobin 11.4 and WBC was 2.6. CTA chest showed no evidence of pulmonary embolism but there was a large right-sided pleural effusion. Patient had ultrasound-guided right-sided thoracentesis done with 1 L of fluid removed. He denies any other complaint including diarrhea constipation melena and his weight and appetite stable. Review of Systems 2 Review of Systems: Review of System as per HPI otherwise negative PMFSH Past Medical History Medical History (Updated 09/30/24 @ 18:30 by Mookie Garcia MD) Pancytopenia Bronchitis Balanitis circinata Type 2 diabetes mellitus Diabetes mellitus HTN (hypertension) HLD (hyperlipidemia) Surgical History Surgical History History of hernia repair History of eye surgery x19 Family History Family History Father Family history of chronic obstructive pulmonary disease, Onset Age: 72 Mother Family history of malignant neoplasm, Onset Age: 68 Social History Social History Smoking status: Former smoker Alcohol intake: former Substance use: former Substance use type: does not use Last use: back in college over 40 years ago Do You Feel Safe in your Home?: Yes Lack of Transportation: No Lack of Food: Never True Current Housing: I Have Housing Concerned About Future Housing: No Difficulty Paying Gas/Electric Bills: No Difficulty Paying for Meds: YES Currently Unemployed: No Education: Associate Degree Difficulty w/ Childcare or Family Care: No Living arrangements: with family Spiritual care concerns: No Meds Home Medications and Allergies Home Medications ?Medication ?Instructions ?Recorded ?Confirmed ?Type nystatin 100,000 unit/gram topical 1 applic topical TID #30 grams 06/09/22 09/29/24 Rx cream amlodipine 5 mg tablet See Rx Instructions .Route 01/15/24 09/29/24 Rx .COMPLEX #90 tabs simvastatin 10 mg tablet See Rx Instructions .Route 04/10/24 09/29/24 Rx .COMPLEX #90 tabs lisinopril 20 mg tablet See Rx Instructions .Route 05/19/24 09/29/24 Rx .COMPLEX #90 tabs semaglutide 14 mg tablet (Rybelsus) 14 mg PO DAILY 90 days #90 tabs 06/02/24 09/29/24 Rx albuterol sulfate 90 mcg/actuation See Rx Instructions .Route 07/03/24 09/29/24 Rx aerosol inhaler .COMPLEX #25.5 grams glimepiride 4 mg tablet See Rx Instructions .Route 08/11/24 09/29/24 Rx .COMPLEX #90 tabs metformin 1,000 mg tablet See Rx Instructions .Route 09/26/24 09/29/24 Rx .COMPLEX #180 tabs doxycycline hyclate 100 mg capsule 100 mg PO Q12H 09/29/24 09/29/24 History prednisone 50 mg tablet 50 mg PO DAILY 09/29/24 09/29/24 History Allergies Allergy/AdvReac Type Severity Reaction Status Date / Time Penicillins Allergy Unknown Unknown Verified 09/30/24 14:06 Vital Signs Vital Signs - 24 hr 09/29/24 18:57 09/29/24 19:12 09/29/24 19:13 Temperature 36.6 C Pulse Rate 79 68 Respiratory Rate 26 H 25 H Blood Pressure 152/68 H 142/72 H Pulse Oximetry 95 97 97 Oxygen Delivery Room Air 09/29/24 19:13 09/29/24 21:05 09/29/24 23:01 Temperature 36.7 C 36.7 C Pulse Rate 71 65 67 Respiratory Rate 23 H 16 Blood Pressure 143/67 H 142/76 H Pulse Oximetry 97 21 L Oxygen Delivery 09/30/24 02:01 09/30/24 03:03 09/30/24 04:56 Temperature 36.7 C 36.7 C 36.7 C Pulse Rate 67 67 69 Respiratory Rate 16 18 22 H Blood Pressure 135/68 145/82 H 143/74 H Pulse Oximetry 95 95 94 Oxygen Delivery 09/30/24 07:06 09/30/24 07:45 09/30/24 07:51 Temperature 36.6 C 36.8 C Pulse Rate 60 65 Respiratory Rate 20 20 Blood Pressure 136/72 147/78 H Pulse Oximetry 95 95 96 Oxygen Delivery Room Air 09/30/24 08:03 09/30/24 09:03 09/30/24 09:25 Temperature 36.6 C 36.6 C 36.8 C Pulse Rate 71 74 73 Respiratory Rate 20 20 21 H Blood Pressure 149/78 H 153/84 H 150/79 H Pulse Oximetry 96 95 94 Oxygen Delivery 09/30/24 09:26 09/30/24 09:26 09/30/24 10:14 Temperature 36.8 C 36.6 C Pulse Rate 74 70 74 Respiratory Rate 21 H 20 21 H Blood Pressure 150/79 H 145/77 H Pulse Oximetry 94 94 94 Oxygen Delivery 09/30/24 10:15 09/30/24 10:16 09/30/24 10:30 Temperature Pulse Rate 65 68 70 Respiratory Rate 20 19 23 H Blood Pressure 138/73 Pulse Oximetry 94 94 93 Oxygen Delivery 09/30/24 10:31 09/30/24 10:46 09/30/24 11:16 Temperature Pulse Rate 76 68 93 Respiratory Rate 20 17 20 Blood Pressure 145/74 H 139/74 152/82 H Pulse Oximetry 93 94 93 Oxygen Delivery 09/30/24 11:46 09/30/24 12:16 09/30/24 13:01 Temperature Pulse Rate 85 85 82 Respiratory Rate 21 H 19 20 Blood Pressure 150/75 H 158/79 H 162/86 H Pulse Oximetry 92 92 99 Oxygen Delivery 09/30/24 13:18 09/30/24 13:28 09/30/24 16:00 Temperature Pulse Rate 83 85 72 Respiratory Rate 18 18 Blood Pressure Pulse Oximetry Oxygen Delivery Exam 2 Narrative: Lungs are clear to auscultation bilaterally Cardiovascular regular rate rhythm no murmurs Abdomen is distended bowel sounds are positive no hepatosplenomegaly Extremities no edema Results Labs 09/30/24 12:11 09/30/24 04:55 Labs: Short CBC 09/29/24 09/30/24 09/30/24 Range/Units 18:35 04:55 12:11 WBC 2.6 L 2.3 L (4.5-10.0) K/mm3 Hgb 11.4 L 11.7 L (14.0-18.0) g/dL Hct 34.8 L 37.1 L (42.0-52.0) % Plt Count 34 L 9 L* D 60 L D (150-375) k/mm3 BMP 09/29/24 09/30/24 18:35 04:55 Sodium 140 138 Potassium 3.7 3.9 Chloride 108 H 107 Carbon Dioxide 23 21 L BUN 12 11 Creatinine 0.57 L 0.54 L Glucose 85 87 Calcium 8.3 L 8.3 L Liver Function 09/29/24 Range/Units 18:35 Total Bilirubin 1.1 (0.2-1.3) mg/dL AST 74 H (17-59) U/L ALT 43 (6-50) U/L Alkaline Phosphatase 125 (38-126) U/L Albumin 3.4 L (3.5-5.1) g/dL
[2024-09-30] MEDS: guaiFENesin/DEXTROMETHORPHAN 10 ML UDC 5 ML PO (21:35)
[2024-09-30 21:38] LABS: Glucose Point of Care 164 mg/dl (65-105)
[2024-09-30 23:30] LABS: Iron 55 ug/dL (49-181)
[2024-09-30 23:45] LABS: Percent Iron Saturation 14 % (20-50)
[2024-10-01] VITALS (17 sets, daily range): BP systolic 136–148; BP diastolic 59–83; PULSE 63–86; RESP 16–20; TEMP 36.2–36.7; O2SAT 94–98
[2024-10-01 00:15] LABS: Folic Acid 13.4 ng/mL (2.76->20)
[2024-10-01] MEDS: IPRATROPIUM 0.5 MG/ALBUTEROL SULFATE 2.5 MG AMPUL.NEB 3 ML INHALATION ×4 (03:10→21:47)
[2024-10-01] MEDS: guaiFENesin/DEXTROMETHORPHAN 10 ML UDC 5 ML PO ×3 (03:20→16:58)
[2024-10-01] MEDS: metroNIDAZOLE 500 MG/ISO 100ML 500 MG/100 ML BAG 100 MG IVPB ×2 (06:29→13:33)
[2024-10-01 07:34] LABS: Hematocrit 34.1 % (42.0-52.0); Hemoglobin 10.8 g/dL (14.0-18.0); Immature Platelet Fraction Pct 5.2 % (0.9-11.2); Mean Corpuscular HGB Conc 31.7 g/dl (32-36); Mean Corpuscular Hemoglobin 29.4 pg (26-34); Mean Corpuscular Volume 92.9 fl (80-100); Mean Platelet Volume 10.6 fl (7.4-10.4); Platelet Count Result 53 k/mm3 (150-375); Red Blood Count 3.67 M/mm3 (4.6-6.20); Red Cell Distribution Width 14.6 % (11.5-14.5); White Blood Count 2.6 K/mm3 (4.5-10.0)
[2024-10-01 07:42] LABS: Alanine Aminotransferase 39 U/L (6-50); Albumin Level 3.3 g/dL (3.5-5.1); Alkaline Phosphatase 116 U/L (38-126); Anion Gap 6 mmol/L (4-12); Aspartate Amino Transferase 56 U/L (17-59); Blood Urea Nitrogen 9 mg/dL (9-20); Calcium 8.5 mg/dL (8.4-10.2); Carbon Dioxide 26 mmol/L (22-30); Chloride 108 mmol/L (98-107); Estimated CRCL calculation 139 ml/min; Estimated Glomerular Filt Rate > 60; Glucose 132 mg/dL (65-110); Potassium 4.3 mmol/L (3.4-5.0); Sodium 140 mmol/L (137-145)
[2024-10-01] MEDS: SIMVASTATIN 10 MG TABLET PO (07:56)
[2024-10-01] MEDS: lisinopriL 20 MG TABLET PO (07:57)
[2024-10-01] MEDS: amLODIPine BESYLATE 5 MG TABLET PO (07:57)
[2024-10-01 08:21] LABS: Glucose Point of Care 159 mg/dl (65-105)
[2024-10-01 11:39] LABS: Glucose Point of Care 174 mg/dl (65-105)
[2024-10-01] MEDS: BENZONATATE 100 MG CAPSULE PO ×2 (13:34→20:31)
[2024-10-01 13:51] LABS: IFOB Positive Control Positive; Immunochemical Fecal Occult Bl Positive (N)
--- NOTE | 2024-10-01 16:35 | PM.IMPN ---
Progress Note: A&P Assessment and Plan (1) Hemoptysis: Code(s): R04.2 - Hemoptysis Status: Acute (2) Pleural effusion: Code(s): J90 - Pleural effusion, not elsewhere classified Status: Acute Plan This is a pleasant 63-year-old male with a history of obesity, [id number] diabetes mellitus, asthma, chronic hypertension, hyperlipidemia, history of cataract surgery at age 4 left eye now blind. Presents to [place] [facility] on 09/29/2024 with complaint of bloody sputum. He reports presenting to an urgent care 2 days prior to admission for a cough and was diagnosed with pneumonia and prescribed antibiotics. On the day of admission in the morning he coughed up blood and motions with his fingers a small amount approximately 5 cc. Your workup demonstrated 97% O2 saturation on room air. Upon evaluation the patient was resting comfortably. WBC count 2.6, hemoglobin 11.4, platelet 34. D-dimer 2.53, serum creatinine 0.57, quad viral screen negative. CTA chest did not demonstrate PE or thoracic aortic dissection. Identifies a large right-sided pleural effusion with adjacent compressive atelectasis. Patient was given ceftriaxone and azithromycin as well as a 1 L normal saline bolus. Dr. Garcia consulted from ER due to pancytopenia. Recommended no platelet transfusion unless under 20 K. recommends trending platelet count with the hope platelets are above 50 K or we can perform thoracentesis. ----- Hematology will see in consultation. Will trend CBC. Diagnostic and therapeutic thoracentesis ordered pending repeat platelet count. His hemoptysis is small and he has not had any episodes in only reports dry cough since admission. Hemoglobin acceptable at 11.4. Possibly a parapneumonic effusion, will add metronidazole in addition to ceftriaxone and azithromycin. Effusion does not appear loculated. Accu-Cheks a.c. HS with insulin sliding scale. Restart [employer] amlodipine and lisinopril. 10/01: Evaluated by Oncologist yesterday. His pancytopenia is secondary to liver cirrhosis and worsening of thrombocytopenia could be secondary to superimposed autoimmune thrombocytopenia. Liver cirrhosis is likely secondary to obesity and fatty liver. 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 Afebrile, no sign of infection hemoglobin 11.7 Evaluated by Oncologist yesterday. His pancytopenia is secondary to liver cirrhosis and worsening of thrombocytopenia could be secondary to superimposed autoimmune thrombocytopenia. Liver cirrhosis is likely secondary to obesity and fatty liver. SCDs. Patient wishes to be full code. Subjective Date/time seen: 10/01/24 16:35 Interval history: Evaluated by Oncologist yesterday. His pancytopenia is secondary to liver cirrhosis and worsening of thrombocytopenia could be secondary to superimposed autoimmune thrombocytopenia. Liver cirrhosis is likely secondary to obesity and fatty liver. Review of Systems Review of Systems: All systems reviewed & are unremarkable except as noted in HPI and below (HPI) Exam Const: General: comfortable and no acute distress Neck: Neck: supple Resp: Effort & Inspection: normal respiratory effort Other: Diminished lung sounds right lung, scant expiratory wheeze Cardio: Rate: regular rate Rhythm: regular rhythm Heart sounds: no gallops, no murmurs and no rubs Extrem: Other: 1+ Objective Data Vital Signs Vital Signs: Vital Signs - 24 hr 09/30/24 20:00 09/30/24 20:00 09/30/24 20:35 Temperature Pulse Rate 77 71 Respiratory Rate 18 Blood Pressure Pulse Oximetry Oxygen Delivery Room Air 09/30/24 20:40 09/30/24 22:00 09/30/24 23:00 Temperature 97.7 F Pulse Rate 73 74 Respiratory Rate 18 20 Blood Pressure 137/61 Pulse Oximetry 100 100 Oxygen Delivery Room Air 10/01/24 00:00 10/01/24 03:09 10/01/24 03:14 Temperature Pulse Rate 71 71 73 Respiratory Rate 18 18 Blood Pressure Pulse Oximetry Oxygen Delivery 10/01/24 04:00 10/01/24 05:59 10/01/24 08:00 Temperature 97.1 F L Pulse Rate 63 67 Respiratory Rate 20 Blood Pressure 138/69 Pulse Oximetry 95 95 Oxygen Delivery Room Air 10/01/24 08:00 10/01/24 08:57 10/01/24 08:57 Temperature Pulse Rate 80 75 Respiratory Rate 18 Blood Pressure Pulse Oximetry 96 Oxygen Delivery Room Air 10/01/24 09:06 10/01/24 12:00 10/01/24 13:51 Temperature Pulse Rate 86 81 Respiratory Rate 18 Blood Pressure Pulse Oximetry 94 Oxygen Delivery Room Air 10/01/24 13:51 10/01/24 14:00 10/01/24 14:05 Temperature 97.3 F L Pulse Rate 71 71 76 Respiratory Rate 20 16 20 Blood Pressure 136/59 L Pulse Oximetry 96 Oxygen Delivery Intake/Output Intake/Output: Intake & Output 09/28/24 09/29/24 09/30/24 10/01/24 23:59 23:59 23:59 23:59 Intake Total 1350 2127 510 Output Total 2200 Balance 1350 -73 510 Meds/Results Medications: Active Medications Generic Name Dose Route Start Last Admin Trade Name Freq PRN Reason Stop Dose Admin Acetaminophen 650 mg 09/29/24 21:05 Acetaminophen 325 Mg Tablet PO Q4H PRN Mild Pain (1-3) or Fever Albuterol 2 puff 09/29/24 23:36 Albuterol Sulfate (*Sp) Aerosol 1 Puff INHALATION Q6HRT PRN Shortness Of Breath Albuterol/Ipratropium 3 ml 09/30/24 14:00 10/01/24 13:50 Ipratropium 0.5 Mg/Albuterol Sulfate 2.5 Mg Ampul.Neb 3 Ml INHALATION 3 ml Q6HRT AIDAN Administration Amlodipine Besylate 5 mg 09/29/24 23:40 10/01/24 07:57 Amlodipine Besylate 5 Mg Tablet PO 5 mg DAILY AIDAN Administration Benzonatate 100 mg 09/30/24 21:34 10/01/24 13:34 Benzonatate 100 Mg Capsule PO 100 mg TID PRN Administration cough Dextrose 12.5 gm 09/29/24 23:37 Dextrose 50% 25 Gm/50 Ml Syringe IV PUSH PRN PRN Hypoglycemia Protocol Glucose 15 gm 09/29/24 23:37 Glucose Oral Gel 15 Gm Of Glucse In 37.5 Gm Tube PO PRN PRN Hypoglycemia Protocol Guaifenesin/Dextromethorphan 5 ml 09/30/24 21:24 10/01/24 07:33 Guaifenesin/Dextromethorphan 10 Ml Udc PO 5 ml Q4H PRN Administration Cough Dextrose 1,000 mls @ 100 mls/hr 09/29/24 23:37 Dextrose 5% 1,000 Ml IVPB PRN PRN Hypoglycemia Protocol Insulin Aspart 2 - 5 units 09/30/24 08:00 10/01/24 11:43 Insulin Aspart (*Bkc) 100 Units/Ml SUB-Q Not Given TIDWM [facility] Protocol Insulin Aspart 1 - 2 units 09/30/24 21:00 09/30/24 21:35 Insulin Aspart (*Bkc) 100 Units/Ml SUB-Q Not Given HS [facility] Protocol Levofloxacin 750 mg 10/01/24 21:00 Levofloxacin 750 Mg Tablet PO 10/05/24 23:59 DAILY@2100 AIDAN Lisinopril 20 mg 09/30/24 09:00 10/01/24 07:57 Lisinopril 20 Mg Tablet PO 20 mg QAM AIDAN Administration Metronidazole 500 mg 10/01/24 22:00 Metronidazole 500 Mg Tablet PO 10/05/24 23:59 Q8HR AIDAN Ondansetron HCl 4 mg 09/29/24 21:05 Ondansetron Inj 4 Mg/2 Ml Vial IV PUSH Q4H PRN Nausea Simvastatin 10 mg 09/29/24 23:40 10/01/24 07:56 Simvastatin 10 Mg Tablet PO 10 mg QAM [facility] Administration Radiology Results: ITS Impressions Chest CTA 09/29/24 20:12 IMPRESSION: No pulmonary embolus. No thoracic aortic dissection. Large right-sided pleural effusion with adjacent compressive atelectasis. Abdomen Ultrasound 09/30/24 08:11 Impression: Cirrhotic liver with associated splenomegaly, as detailed above. Small amount of abdominal ascites. Thoracentesis Ultrasound 09/30/24 15:32 IMPRESSION: 1. Successful ultrasound-guided thoracentesis yielding 1000 mL of priti-colored fluid. Chest X-Ray 09/30/24 15:34 IMPRESSION: As above. Labs Labs: Laboratory Results - last 24 hr 09/30/24 09/30/24 09/30/24 16:36 17:02 21:34 WBC RBC Hgb Hct MCV MCH MCHC RDW Plt Count MPV % Immature Plt Fraction Sodium Potassium Chloride Carbon Dioxide Anion Gap BUN Creatinine Estim Creat Clear Calc Estimated GFR Glucose POC Capillary Glucose 157 H 164 H Calcium Iron 55 TIBC 398 % Saturation 14 L Ferritin 21.80 Total Bilirubin AST ALT Alkaline Phosphatase Lactate Dehydrogenase 206 Total Protein 7.0 Albumin Vitamin B12 488.0 Folate 13.4 Stl Occult Blood (IFOB) 10/01/24 10/01/24 10/01/24 07:18 08:07 11:31 WBC 2.6 L RBC 3.67 L Hgb 10.8 L Hct 34.1 L MCV 92.9 MCH 29.4 MCHC 31.7 L RDW 14.6 H Plt Count 53 L MPV 10.6 H % Immature Plt Fraction 5.2 Sodium 140 Potassium 4.3 Chloride 108 H Carbon Dioxide 26 Anion Gap 6 BUN 9 Creatinine 0.60 L Estim Creat Clear Calc 139 Estimated GFR > 60 Glucose 132 H POC Capillary Glucose 159 H 174 H Calcium 8.5 Iron TIBC % Saturation Ferritin Total Bilirubin 1.0 AST 56 ALT 39 Alkaline Phosphatase 116 Lactate Dehydrogenase Total Protein 7.0 Albumin 3.3 L Vitamin B12 Folate Stl Occult Blood (IFOB) 10/01/24 13:14 WBC RBC Hgb Hct MCV MCH MCHC RDW Plt Count MPV % Immature Plt Fraction Sodium Potassium Chloride Carbon Dioxide Anion Gap BUN Creatinine Estim Creat Clear Calc Estimated GFR Glucose POC Capillary Glucose Calcium Iron TIBC % Saturation Ferritin Total Bilirubin AST ALT Alkaline Phosphatase Lactate Dehydrogenase Total Protein Albumin Vitamin B12 Folate Stl Occult Blood (IFOB) Positive H Hospitalist MIPS Advance Care Plan I have confirmed that the patient's Advanced Care Plan is present, code status is documented, or surrogate decision maker is listed in patient medical record.: Yes Medication Reconciliation I have utilized all available resources to obtain, update and review the patients current medications (includes all prescriptions, OTC, herbals, cannabis, and nutritional supplements).: Yes
[2024-10-01 17:17] LABS: Glucose Point of Care 178 mg/dl (65-105)
[2024-10-01] MEDS: levoFLOXacin 750 MG TABLET PO (20:32)
[2024-10-01] MEDS: metroNIDAZOLE 500 MG TABLET PO (21:09)
[2024-10-01 21:22] LABS: Glucose Point of Care 168 mg/dl (65-105)
[2024-10-02] VITALS (10 sets, daily range): BP systolic 131–154; BP diastolic 68–85; PULSE 73–90; RESP 16–20; TEMP 36.5–36.7; O2SAT 95–97
[2024-10-02] MEDS: IPRATROPIUM 0.5 MG/ALBUTEROL SULFATE 2.5 MG AMPUL.NEB 3 ML INHALATION ×3 (02:43→20:24)
[2024-10-02] MEDS: metroNIDAZOLE 500 MG TABLET PO ×3 (05:42→20:55)
[2024-10-02 06:33] LABS: Hematocrit 35.4 % (42.0-52.0); Hemoglobin 11.3 g/dL (14.0-18.0); Immature Platelet Fraction Pct 5.5 % (0.9-11.2); Mean Corpuscular HGB Conc 31.9 g/dl (32-36); Mean Corpuscular Hemoglobin 29.7 pg (26-34); Mean Corpuscular Volume 92.9 fl (80-100); Mean Platelet Volume 11.7 fl (7.4-10.4); Platelet Count Result 50 k/mm3 (150-375); Red Blood Count 3.81 M/mm3 (4.6-6.20); Red Cell Distribution Width 14.7 % (11.5-14.5); White Blood Count 2.6 K/mm3 (4.5-10.0)
[2024-10-02 06:37] LABS: Alanine Aminotransferase 36 U/L (6-50); Albumin Level 3.2 g/dL (3.5-5.1); Alkaline Phosphatase 111 U/L (38-126); Anion Gap 6 mmol/L (4-12); Aspartate Amino Transferase 48 U/L (17-59); Blood Urea Nitrogen 8 mg/dL (9-20); Calcium 8.6 mg/dL (8.4-10.2); Carbon Dioxide 25 mmol/L (22-30); Chloride 107 mmol/L (98-107); Estimated CRCL calculation 135 ml/min; Estimated Glomerular Filt Rate > 60; Glucose 152 mg/dL (65-110); Potassium 3.8 mmol/L (3.4-5.0); Sodium 138 mmol/L (137-145)
[2024-10-02 08:02] LABS: Glucose Point of Care 159 mg/dl (65-105)
--- NOTE | 2024-10-02 09:33 | PM.IMPN ---
Progress Note: A&P Assessment and Plan (1) Hemoptysis: Code(s): R04.2 - Hemoptysis Status: Acute (2) Pleural effusion: Code(s): J90 - Pleural effusion, not elsewhere classified Status: Acute Plan This is a pleasant 63-year-old male with a history of obesity, [id number] diabetes mellitus, asthma, chronic hypertension, hyperlipidemia, history of cataract surgery at age 4 left eye now blind. Presents to [facility] on 09/29/2024 with complaint of bloody sputum. He reports presenting to an urgent care 2 days prior to admission for a cough and was diagnosed with pneumonia and prescribed antibiotics. On the day of admission in the morning he coughed up blood and motions with his fingers a small amount approximately 5 cc. Your workup demonstrated 97% O2 saturation on room air. Upon evaluation the patient was resting comfortably. WBC count 2.6, hemoglobin 11.4, platelet 34. D-dimer 2.53, serum creatinine 0.57, quad viral screen negative. CTA chest did not demonstrate PE or thoracic aortic dissection. Identifies a large right-sided pleural effusion with adjacent compressive atelectasis. Patient was given ceftriaxone and azithromycin as well as a 1 L normal saline bolus. Dr. Garcia consulted from ER due to pancytopenia. Recommended no platelet transfusion unless under 20 K. recommends trending platelet count with the hope platelets are above 50 K or we can perform thoracentesis. ----- Hematology will see in consultation. Will trend CBC. Diagnostic and therapeutic thoracentesis ordered pending repeat platelet count. His hemoptysis is small and he has not had any episodes in only reports dry cough since admission. Hemoglobin acceptable at 11.4. Possibly a parapneumonic effusion, will add metronidazole in addition to ceftriaxone and azithromycin. Effusion does not appear loculated. Accu-Cheks a.c. HS with insulin sliding scale. Restart [employer] P[employer] amlodipine and lisinopril. 10/01: Evaluated by Oncologist yesterday. His pancytopenia is secondary to liver cirrhosis and worsening of thrombocytopenia could be secondary to superimposed autoimmune thrombocytopenia. Liver cirrhosis is likely secondary to obesity and fatty liver. 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 Afebrile, no sign of infection hemoglobin 11.7 Evaluated by Oncologist yesterday. His pancytopenia is secondary to liver cirrhosis and worsening of thrombocytopenia could be secondary to superimposed autoimmune thrombocytopenia. Liver cirrhosis is likely secondary to obesity and fatty liver. SCDs. Patient wishes to be full code. Recurrent Right Pleural Effusion -Repeated chest CT on 10/02 shows moderate size right pleural effusion. -On 0 09/30 patient had a successful thoracocentesis and was drained 1 L from right pleural effusion. -Pleural studies pending to calculate light's criteria. -Reviewed echocardiogram which shows no significant finding. -No evidence of kidney disease. Subjective Date/time seen: 10/02/24 09:33 Interval history: During this hospitalization patient received 2 units of platelet. Currently his platelet has been stable around 50. Patient was evaluated by Dr. Garcia and believes that his pancytopenia is secondary to liver cirrhosis and worsening of thrombocytopenia could be secondary to superimposed autoimmune thrombocytopenia. Liver cirrhosis is likely secondary to obesity and fatty liver. Patient reported mild chest discomfort. Cardiac workup was negative. Repeated chest CT shows moderate size right pleural effusion. On 0 09/30 patient had a successful thoracocentesis and was drained 1 L from right pleural effusion. Pleural studies pending to calculate light's criteria. Reviewed echocardiogram which shows no significant finding. No evidence of kidney disease. Review of Systems Review of Systems: All systems reviewed & are unremarkable except as noted in HPI and below (HPI) Exam Const: General: comfortable and no acute distress Neck: Neck: supple Resp: Effort & Inspection: normal respiratory effort Other: Diminished lung sounds right lung, scant expiratory wheeze Cardio: Rate: regular rate Rhythm: regular rhythm Heart sounds: no gallops, no murmurs and no rubs Extrem: Other: 1+ Objective Data Vital Signs Vital Signs: Vital Signs - 24 hr 10/01/24 12:00 10/01/24 13:51 10/01/24 13:51 Temperature Pulse Rate 81 71 Respiratory Rate 20 Blood Pressure Pulse Oximetry 94 Oxygen Delivery Room Air 10/01/24 14:00 10/01/24 14:05 10/01/24 16:00 Temperature 97.3 F L Pulse Rate 71 76 77 Respiratory Rate 16 20 Blood Pressure 136/59 L Pulse Oximetry 96 Oxygen Delivery 10/01/24 20:30 10/01/24 21:25 10/01/24 21:48 Temperature 98.0 F Pulse Rate 77 79 74 Respiratory Rate 20 20 20 Blood Pressure 148/83 H Pulse Oximetry 96 98 Oxygen Delivery Room Air 10/01/24 21:58 10/01/24 21:58 10/02/24 02:44 Temperature Pulse Rate 76 76 Respiratory Rate 20 20 Blood Pressure Pulse Oximetry 95 Oxygen Delivery Room Air 10/02/24 02:52 10/02/24 05:37 Temperature 98.1 F Pulse Rate 79 76 Respiratory Rate 20 16 Blood Pressure 136/74 Pulse Oximetry 96 Oxygen Delivery Intake/Output Intake/Output: Intake & Output 09/29/24 09/30/24 10/01/24 10/02/24 23:59 23:59 23:59 23:59 Intake Total 1350 2127 750 300 Output Total 2200 Balance 1350 -73 750 300 Meds/Results Medications: Active Medications Generic Name Dose Route Start Last Admin Trade Name Freq PRN Reason Stop Dose Admin Acetaminophen 650 mg 09/29/24 21:05 Acetaminophen 325 Mg Tablet PO Q4H PRN Mild Pain (1-3) or Fever Albuterol 2 puff 09/29/24 23:36 Albuterol Sulfate (*Sp) Aerosol 1 Puff INHALATION Q6HRT PRN Shortness Of Breath Albuterol/Ipratropium 3 ml 09/30/24 14:00 10/02/24 02:43 Ipratropium 0.5 Mg/Albuterol Sulfate 2.5 Mg Ampul.Neb 3 Ml INHALATION 3 ml Q6HRT AIDAN Administration Amlodipine Besylate 5 mg 09/29/24 23:40 10/01/24 07:57 Amlodipine Besylate 5 Mg Tablet PO 5 mg DAILY AIDAN Administration Benzonatate 100 mg 09/30/24 21:34 10/01/24 20:31 Benzonatate 100 Mg Capsule PO 100 mg TID PRN Administration cough Dextrose 12.5 gm 09/29/24 23:37 Dextrose 50% 25 Gm/50 Ml Syringe IV PUSH PRN PRN Hypoglycemia Protocol Glucose 15 gm 09/29/24 23:37 Glucose Oral Gel 15 Gm Of Glucse In 37.5 Gm Tube PO PRN PRN Hypoglycemia Protocol Guaifenesin/Dextromethorphan 5 ml 09/30/24 21:24 10/01/24 16:58 Guaifenesin/Dextromethorphan 10 Ml Udc PO 5 ml Q4H PRN Administration Cough Dextrose 1,000 mls @ 100 mls/hr 09/29/24 23:37 Dextrose 5% 1,000 Ml IVPB PRN PRN Hypoglycemia Protocol Insulin Aspart 2 - 5 units 09/30/24 08:00 10/02/24 08:09 Insulin Aspart (*Bkc) 100 Units/Ml SUB-Q Not Given TIDWM AIDAN Protocol Insulin Aspart 1 - 2 units 09/30/24 21:00 10/01/24 21:10 Insulin Aspart (*Bkc) 100 Units/Ml SUB-Q Not Given HS AIDAN Protocol Levofloxacin 750 mg 10/01/24 21:00 10/01/24 20:32 Levofloxacin 750 Mg Tablet PO 10/05/24 23:59 750 mg DAILY@2100 AIDAN Administration Lisinopril 20 mg 09/30/24 09:00 10/01/24 07:57 Lisinopril 20 Mg Tablet PO 20 mg QAM AIDAN Administration Metronidazole 500 mg 10/01/24 22:00 10/02/24 05:42 Metronidazole 500 Mg Tablet PO 10/05/24 23:59 500 mg Q8HR AIDAN Administration Ondansetron HCl 4 mg 09/29/24 21:05 Ondansetron Inj 4 Mg/2 Ml Vial IV PUSH Q4H PRN Nausea Simvastatin 10 mg 09/29/24 23:40 10/01/24 07:56 Simvastatin 10 Mg Tablet PO 10 mg QAM AIDAN Administration Radiology Results: ITS Impressions Chest CTA 09/29/24 20:12 IMPRESSION: No pulmonary embolus. No thoracic aortic dissection. Large right-sided pleural effusion with adjacent compressive atelectasis. Abdomen Ultrasound 09/30/24 08:11 Impression: Cirrhotic liver with associated splenomegaly, as detailed above. Small amount of abdominal ascites. Thoracentesis Ultrasound 09/30/24 15:32 IMPRESSION: 1. Successful ultrasound-guided thoracentesis yielding 1000 mL of priti-colored fluid. Chest X-Ray 09/30/24 15:34 IMPRESSION: As above. Labs Labs: Laboratory Results - last 24 hr 10/01/24 10/01/24 10/01/24 11:31 13:14 16:49 WBC RBC Hgb Hct MCV MCH MCHC RDW Plt Count MPV % Immature Plt Fraction Sodium Potassium Chloride Carbon Dioxide Anion Gap BUN Creatinine Estim Creat Clear Calc Estimated GFR Glucose POC Capillary Glucose 174 H 178 H Calcium Total Bilirubin AST ALT Alkaline Phosphatase Total Protein Albumin Stl Occult Blood (IFOB) Positive H 10/01/24 10/02/24 10/02/24 19:54 05:40 07:52 WBC 2.6 L RBC 3.81 L Hgb 11.3 L Hct 35.4 L MCV 92.9 MCH 29.7 MCHC 31.9 L RDW 14.7 H Plt Count 50 L MPV 11.7 H % Immature Plt Fraction 5.5 Sodium 138 Potassium 3.8 Chloride 107 Carbon Dioxide 25 Anion Gap 6 BUN 8 L Creatinine 0.62 L Estim Creat Clear Calc 135 Estimated GFR > 60 Glucose 152 H POC Capillary Glucose 168 H 159 H Calcium 8.6 Total Bilirubin 1.0 AST 48 ALT 36 Alkaline Phosphatase 111 Total Protein 7.0 Albumin 3.2 L Stl Occult Blood (IFOB) Hospitalist MIPS Advance Care Plan I have confirmed that the patient's Advanced Care Plan is present, code status is documented, or surrogate decision maker is listed in patient medical record.: Yes Medication Reconciliation I have utilized all available resources to obtain, update and review the patients current medications (includes all prescriptions, OTC, herbals, cannabis, and nutritional supplements).: Yes
[2024-10-02] MEDS: lisinopriL 20 MG TABLET PO (09:46)
[2024-10-02] MEDS: amLODIPine BESYLATE 5 MG TABLET PO (09:46)
[2024-10-02] MEDS: SIMVASTATIN 10 MG TABLET PO (09:46)
[2024-10-02] MEDS: ACETAMINOPHEN 325 MG TABLET 650 MG PO ×2 (09:50→20:55)
[2024-10-02] MEDS: guaiFENesin/DEXTROMETHORPHAN 10 ML UDC 5 ML PO ×2 (09:50→22:05)
--- NOTE | 2024-10-02 10:17 | PCRCNOTE ---
Window of time for administration has passed. See next scheduled administration.
--- NOTE | 2024-10-02 11:18 | ECG_ITS ---
Test Date: 2024-10-02 11:38:10 Measurements Intervals [place] Rate: 80 P: 110 WY: 190 QRS: -20 QRSD: 121 T: 31 QT: 405 QTc: 468 Interpretive Statements SINUS RHYTHM WITH SINUS ARRHYTHMIA INTRAVENTRICULAR CONDUCTION DELAY DELAYED PRECORDIAL R/S TRANSITION MINIMAL Q WAVES- HIGH LATERAL LEADS BASELINE ARTIFACT- I, II, AVR, AVL, AVF, V1-V6 BORDERLINE ECG Compared to ECG 09/29/2024 15:40:22 NO SIGNIFICANT CHANGE Electronically Signed On 10-02-2024 12:04:24 [employer]IMP [employer]TON[employer] MACHINE OPERATOR by Garrett Alfaro D.O.
[2024-10-02 11:49] LABS: Glucose Point of Care 188 mg/dl (65-105)
[2024-10-02 12:16] LABS: Troponin I < 0.012 ng/mL (0.000-0.034)
[2024-10-02 16:45] LABS: Glucose Point of Care 195 mg/dl (65-105)
[2024-10-02] MEDS: levoFLOXacin 750 MG TABLET PO (20:55)
[2024-10-02] MEDS: BENZONATATE 100 MG CAPSULE PO (20:56)
[2024-10-02 22:00] LABS: Glucose Point of Care 143 mg/dl (65-105)
[2024-10-03] VITALS (13 sets, daily range): BP systolic 120–133; BP diastolic 63–78; PULSE 65–92; RESP 16–20; TEMP 35.8–36.7; O2SAT 93–96
[2024-10-03] MEDS: IPRATROPIUM 0.5 MG/ALBUTEROL SULFATE 2.5 MG AMPUL.NEB 3 ML INHALATION ×4 (02:00→20:34)
[2024-10-03] MEDS: metroNIDAZOLE 500 MG TABLET PO ×3 (05:12→21:48)
[2024-10-03 07:22] LABS: Hematocrit 35.6 % (42.0-52.0); Hemoglobin 11.5 g/dL (14.0-18.0); Immature Platelet Fraction Pct 6.6 % (0.9-11.2); Mean Corpuscular HGB Conc 32.3 g/dl (32-36); Mean Corpuscular Hemoglobin 29.9 pg (26-34); Mean Corpuscular Volume 92.7 fl (80-100); Platelet Count Result 45 k/mm3 (150-375); Red Blood Count 3.84 M/mm3 (4.6-6.20); Red Cell Distribution Width 15.1 % (11.5-14.5); White Blood Count 2.9 K/mm3 (4.5-10.0)
--- NOTE | 2024-10-03 07:31 | P.PNIM_ITS ---
Progress Note: A&P Assessment and Plan (1) Hemoptysis: Code(s): R04.2 - Hemoptysis Status: Acute (2) Pleural effusion: Code(s): J90 - Pleural effusion, not elsewhere classified Status: Acute Plan This is a pleasant 63-year-old male with a history of obesity, [id number] diabetes mellitus, asthma, chronic hypertension, hy perlipidemia, history of cataract surgery at age 4 left eye now blind. Presents to [facility] on 09/29/2024 with complaint of bloody sputum. He reports presenting to an urgent care 2 days prior to admission for a cough and was diagnosed with pneumonia and prescribed antibiotics. On the day of admission in the morning he coughed up blood and motions with his fingers a small amount approximately 5 cc. Your workup demonstrated 97% O2 saturation on room air. Upon evaluation the patient was resting comfortably. WBC count 2.6, hemoglobin 11.4, platelet 34. D-dimer 2.53, serum creatinine 0.57, quad viral screen negative. CTA chest did not demonstrate PE or thoracic aortic dissection. Identifies a large right- sided pleural effusion with adjacent compressive atelectasis. Patient was given ceftriaxone and azithromycin as well as a 1 L normal saline bolus. Dr. Garcia consulted from ER due to pancytopenia. Recommended no platelet transfusion unless under 20 K. recommends trending platelet count with the hope platelets are above 50 K or we can perform thoracentesis. ----- Hematology will see in consultation. Will trend CBC. Diagnostic and therapeutic thoracentesis ordered pending repeat platelet count. His hemoptysis is small and he has not had any episodes in only reports dry cough since admission. Hemoglobin acceptable at 11.4. Possibly a parapneumonic effusion, will add metronidazole in addition to ceftriaxone and azithromycin. Effusion does not appear loculated. Accu-Cheks a.c. HS with insulin sliding scale. Restart [employer] amlodipine and lisinopril. 10/01: Evaluated by Oncologist yesterday. His pancytopenia is secondary to liver cirrhosis and worsening of thrombocytopenia could be secondary to superimposed autoimmune thrombocytopenia. Liver cirrhosis is likely secondary to obesity and fatty liver. 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 Afebrile, no sign of infection hemoglobin 11.7 Evaluated by Oncologist yesterday. His pancytopenia is secondary to liver cirrhosis and worsening of thrombocytopenia could be secondary to superimposed autoimmune thrombocytopenia. Liver cirrhosis is likely secondary to obesity and fatty liver. SCDs. Patient wishes to be full code. Recurrent Right Pleural Effusion -Repeated chest CT on 10/02 shows moderate size right pleural effusion. -On 0 09/30 patient had a successful thoracocentesis and was drained 1 L from right pleural effusion. -Pleural studies pending to calculate light's criteria. -Possible from liver cirrhosis -Order hepatitis panel, HbA1c and lipid panel -Reviewed echocardiogram which shows no significant finding. -No evidence of kidney disease. Subjective Date/time seen: 10/03/24 07:31 Interval history: His possible pleural effusion from liver cirrhosis. Pleural studies pending and consulted pulmonology .Patient complains for chest pressure like yesterday . His cardiac work up and CTA shows no abnormalities. Possibly his pressure from fluid accumulation. Will give GI cocktail. Review of Systems Review of Systems: All systems reviewed & are unremarkable except as noted in HPI and below (HPI) Exam Const: General: comfortable and no acute distress Neck: Neck: supple Resp: Effort & Inspection: normal respiratory effort Other: Diminished lung sounds right lung, scant expiratory wheeze Cardio: Rate: regular rate Rhythm: regular rhythm Heart sounds: no gallops, no murmurs and no rubs Extrem: Other: 1+ Objective Data Vital Signs Vital Signs: Vital Signs - 24 hr 10/02/24 10:36 10/02/24 11:28 10/02/24 14:48 Temperature 98.1 F 97.7 F Pulse Rate 73 73 86 Respiratory Rate 18 20 18 Blood Pressure 134/68 131/71 Pulse Oximetry 97 97 Oxygen Delivery 10/02/24 20:00 10/02/24 20:23 10/02/24 20:30 Temperature Pulse Rate 86 86 Respiratory Rate 20 20 Blood Pressure Pulse Oximetry Oxygen Delivery Room Air 10/02/24 20:33 10/02/24 21:00 10/03/24 01:59 Temperature 98 F Pulse Rate 90 75 Respiratory Rate 18 20 Blood Pressure 154/85 H Pulse Oximetry 95 96 Oxygen Delivery Room Air 10/03/24 02:08 Temperature Pulse Rate 74 Respiratory Rate 20 Blood Pressure Pulse Oximetry Oxygen Delivery Intake/Output Intake/Output: Intake & Output 09/30/24 10/01/24 10/02/24 10/03/24 23:59 23:59 23:59 23:59 Intake Total 2127 750 1260 Output Total 2200 Balance -73 750 1260 Meds/Results Medications: Active Medications Generic Name Dose Route Start Last Admin Trade Name Freq PRN Reason Stop Dose Admin Acetaminophen 650 mg 09/29/24 21:05 10/02/24 20:55 Acetaminophen 325 Mg Tablet PO 650 mg Q4H PRN Administration Mild Pain (1-3) or Fever Albuterol 2 puff 09/29/24 23:36 Albuterol Sulfate (*Sp) Aerosol 1 Puff INHALATION Q6HRT PRN Shortness Of Breath Albuterol/Ipratropium 3 ml 09/30/24 14:00 10/03/24 02:00 Ipratropium 0.5 Mg/Albuterol Sulfate 2.5 Mg Ampul.Neb 3 Ml INHALATION 3 ml Q6HRT AIDAN Administration Amlodipine Besylate 5 mg 09/29/24 23:40 10/02/24 09:46 Amlodipine Besylate 5 Mg Tablet PO 5 mg DAILY AIDAN Administration Benzonatate 100 mg 09/30/24 21:34 10/02/24 20:56 Benzonatate 100 Mg Capsule PO 100 mg TID PRN Administration cough Dextrose 12.5 gm 09/29/24 23:37 Dextrose 50% 25 Gm/50 Ml Syringe IV PUSH PRN PRN Hypoglycemia Protocol Glucose 15 gm 09/29/24 23:37 Glucose Oral Gel 15 Gm Of Glucse In 37.5 Gm Tube PO PRN PRN Hypoglycemia Protocol Guaifenesin/Dextromethorphan 5 ml 09/30/24 21:24 10/02/24 22:05 Guaifenesin/Dextromethorphan 10 Ml Udc PO 5 ml Q4H PRN Administration Cough Dextrose 1,000 mls @ 100 mls/hr 09/29/24 23:37 Dextrose 5% 1,000 Ml IVPB PRN PRN Hypoglycemia Protocol Insulin Aspart 2 - 5 units 09/30/24 08:00 10/02/24 16:43 Insulin Aspart (*Bkc) 100 Units/Ml SUB-Q Not Given TIDWM AIDAN Protocol Insulin Aspart 1 - 2 units 09/30/24 21:00 10/02/24 20:57 Insulin Aspart (*Bkc) 100 Units/Ml SUB-Q Not Given HS [facility] Protocol Levofloxacin 750 mg 10/01/24 21:00 10/02/24 20:55 Levofloxacin 750 Mg Tablet PO 10/05/24 23:59 750 mg DAILY@2100 AIDAN Administration Lisinopril 20 mg 09/30/24 09:00 10/02/24 09:46 Lisinopril 20 Mg Tablet PO 20 mg QAM AIDAN Administration Metronidazole 500 mg 10/01/24 22:00 10/03/24 05:12 Metronidazole 500 Mg Tablet PO 10/05/24 23:59 500 mg Q8HR AIDAN Administration Ondansetron HCl 4 mg 09/29/24 21:05 Ondansetron Inj 4 Mg/2 Ml Vial IV PUSH Q4H PRN Nausea Simvastatin 10 mg 09/29/24 23:40 10/02/24 09:46 Simvastatin 10 Mg Tablet PO 10 mg QAM AIDAN Administration Radiology Results: ITS Impressions Chest CTA 09/29/24 20:12 IMPRESSION: No pulmonary embolus. No thoracic aortic dissection. Large right-sided pleural effusion with adjacent compressive atelectasis. Abdomen Ultrasound 09/30/24 08:11 Impression: Cirrhotic liver with associated splenomegaly, as detailed above. Small amount of abdominal ascites. Thoracentesis Ultrasound 09/30/24 15:32 IMPRESSION: 1. Successful ultrasound-guided thoracentesis yielding 1000 mL of priti-colored fluid. Chest X-Ray 09/30/24 15:34 IMPRESSION: As above. Chest CT 10/02/24 13:39 IMPRESSION: 1. Moderate-sized right pleural effusion. 2. Cirrhosis of the liver with portal venous hypertension. 3. Small volume of ascites. Labs Labs: Laboratory Results - last 24 hr 10/02/24 10/02/24 10/02/24 05:40 07:52 11:32 WBC 2.6 L RBC 3.81 L Hgb 11.3 L Hct 35.4 L MCV 92.9 MCH 29.7 MCHC 31.9 L RDW 14.7 H Plt Count 50 L MPV 11.7 H % Immature Plt Fraction 5.5 POC Capillary Glucose 159 H Troponin I < 0.012 10/02/24 10/02/24 10/02/24 11:42 16:33 20:56 WBC RBC Hgb Hct MCV MCH MCHC RDW Plt Count MPV % Immature Plt Fraction POC Capillary Glucose 188 H 195 H 143 H Troponin I Hospitalist MIPS Advance Care Plan I have confirmed that the patient's Advanced Care Plan is present, code status is documented, or surrogate decision maker is listed in patient medical record.: Yes Medication Reconciliation I have utilized all available resources to obtain, update and review the patients current medications (includes all prescriptions, OTC, herbals, cannabis, and nutritional supplements).: Yes
[2024-10-03 07:36] LABS: Alanine Aminotransferase 34 U/L (6-50); Albumin Level 3.2 g/dL (3.5-5.1); Alkaline Phosphatase 103 U/L (38-126); Anion Gap 10 mmol/L (4-12); Aspartate Amino Transferase 50 U/L (17-59); Bilirubin,Total 1.3 mg/dL (0.2-1.3); Blood Urea Nitrogen 8 mg/dL (9-20); Calcium 8.5 mg/dL (8.4-10.2); Carbon Dioxide 21 mmol/L (22-30); Chloride 106 mmol/L (98-107); Estimated CRCL calculation 166 ml/min; Estimated Glomerular Filt Rate > 60; Glucose 148 mg/dL (65-110); Potassium 3.9 mmol/L (3.4-5.0); Sodium 137 mmol/L (137-145)
[2024-10-03 08:15] LABS: Glucose Point of Care 136 mg/dl (65-105)
[2024-10-03 08:38] LABS: Cholesterol 118 mg/dL (0-200); HDL Direct 43 mg/dL; Triglycerides 61 mg/dL (<150)
[2024-10-03] MEDS: amLODIPine BESYLATE 5 MG TABLET PO (08:38)
[2024-10-03] MEDS: lisinopriL 20 MG TABLET PO (08:38)
[2024-10-03] MEDS: SIMVASTATIN 10 MG TABLET PO (08:38)
[2024-10-03] MEDS: ACETAMINOPHEN 325 MG TABLET 650 MG PO ×2 (08:40→21:48)
[2024-10-03 08:48] LABS: LDL Cholesterol Direct 55 mg/dL
[2024-10-03 08:54] LABS: Hepatitis B Surface Antigen Negative (Negative)
[2024-10-03 09:02] LABS: Hepatitis B Core IgM Result Negative (Negative)
[2024-10-03 09:03] LABS: HAV RESULT Reactive (Negative)
[2024-10-03 09:11] LABS: Hepatitis C Virus Antibody Negative (Negative)
[2024-10-03] MEDS: BELLADONNA ALK/PHENOB ELIX 10 ML, MAG HYDROX/ALUMINUM HYD/SIMETH 30 ML, LIDOCAINE 2% VI... PO (11:16)
[2024-10-03 11:48] LABS: Glucose Point of Care 209 mg/dl (65-105)
--- NOTE | 2024-10-03 12:19 | P.CONPL_ITS ---
Assessment and Plan Assessment and plan (1) Pleural effusion on right: Code(s): J90 - Pleural effusion, not elsewhere classified Status: Acute Assessment and Plan: patient with a right pleural effusion status post thoracentesis with immediate relief of his shortness of breath after 1000 mL of fluid removal. He has a normal creatinine, no evidence of renal disease, free T4 1.3 on 05/26/2022. He has evidence of cirrhosis and history of alcohol use. he has pancytopenia. On 09/30 the patient had a right thoracentesis with 1000 mL of priti colored fluid removed. G stain showed no organisms and few white blood cells. PH was greater than 7.50. White blood cell count is 308, neutrophils 6%, lymphocytes 37, macrophages 57%. etiology of right pleural fluid includes: transudative from liver disease, malignant. No evidence of empyema. Chest x-ray on 10/03/2024 shows no rapid reaccumulation of his moderate right- sided pleural effusion. Plan: Await further studies on pleural fluid to determine if this is a transudate or an exudate. If this is a transudate he should have his cirrhosis and fluid optimized as this is likely etiology of his right pleural effusion. Cytology on the pleural fluid was not ordered. I called the lab on 10/02/2024 in the late afternoon and discussed with them and ordered cytology. I confirmed with the laboratory on 10/03/2024 that they had the lab specimen and it would be process. I spoke with the pathologist and he is concerned that there may be sell degradation as the fluid was not processed for 3 days. Await these results. If the results are exudative the patient will need a chest x-ray in 1 month to determine if the pleural effusion still persists. If that is the case he can be referred to the [facility] as an outpatient. Regarding his pancytopenia he is scheduled to follow-up with oncology. For possible bronchitis would recommend treatment with Levaquin 750 mg p.o. q.day for total of [address] Dejesus, will sign off, call with questions. (2) Asthma: Code(s): J45.909 - Unspecified asthma, uncomplicated Status: Acute Assessment and Plan: Patient carries a history of asthma and has a 2 year history of intermittent rhinitis associated with shortness of breath. He denies wheezing. He does say that p.r.n. albuterol which he takes 3 times a week does help him. Plan: Recommend initiating moderate dose inhaled [id number] beta agonist. Beta agonsit and inhaled corticosteroid that his insurance can cover (Advair discus 250/50 at 1 puff BID, Advair HFA 115/21 at 2 puffs BID, Breo Ellipts 100/25 at 1 puff Q day, Dulera 100/5 at 2 puffs BID, or symbicort 160/4.5 at 2 puffs BID). History of Present Illness History of Present Illness Consult date: 10/03/24 Chief complaint: Dyspnea, Large pleural effusion, Pneumonia, Pancyt Narrative: 10/03/2024: This is a new pulmonary consult for Right pleural effusion. 63-year-old with a history of hypertension, hyperlipidemia, diabetes, former alcohol user, never smoker, Asthma and pancytopenia. patient tells me he never had asthma as a child and had no respiratory issues until approximately a few years ago when he have would have intermittent shortness of breath worse when he is exposed to environmental had a and weeds. His sinuses would act up and he would have intermittent shortness of breath. Two years ago he was prescribed p.r.n. albuterol by his PCP and he uses this approximately 3 times a week and he says that this does help him. Patient presented to the emergency department on 09/29/2024 with a few weeks worsening shortness of breath, this would occur at rest and with activity. Patient went to the urgent care on 09/27/2024 and was diagnosed with a bronchitis and prescribed doxycycline and prednisone. He took this for 2 days and felt better. On the morning of 09/29/2024 he coughed up blood. He presented to the emergency department with blood pressure of 153/64, heart rate 80, respirations 20, room air saturations 94%. White blood cell count 2.6, hemoglobin 10.8, platelets 53, D-dimer 2.53, negative COVID influenza and RSV RT PCR. Creatinine 0.6. Patient had a CT scan of the chest showed a large right pleural effusion and nodular liver. On 09/30 the platelets decreased to 9 and he was given 2 units. Ultrasound of the abdomen showed cirrhosis with splenomegaly. On 09/30 the patient had a right thoracentesis with 1000 mL of priti colored fluid removed. G stain showed no organisms and few white blood cells. PH was greater than 7.50. White blood cell count is 308, neutrophils 6%, lymphocytes 37, macrophages 57%. The patient tells that immediately after they took the fluid off he was breathing 100% better and back to his normal. Of note, most recent imaging of the thorax was a thoracic spine x-ray on 02/08/2023 shows no right pleural effusion. 10/02/2024: CT scan with moderate right pleural effusion, trace left pleural effusion, bilateral atelectasis, nodular liver with splenomegaly small ascites and paraesophageal varices with edema of the wall of the abdomen. 10/03/2023: Today the patient tells me that he is breathing about 80% back to normal the same as he was after the thoracentesis. He has a cough with some phlegm that is the same. He has had no further hemoptysis since he presented to the emergency room. This morning he coughed up some reddish phlegm and he was not sure that this was blood. Chest x-ray today shows moderate right-sided pleural effusion with no change from post thoracentesis x-ray on to 06/2025. DATA: 10/02/24: EXAMINATION:CT diagnostic chest wo con DATE: 10/02/2024 13:25 INDICATION: Pleural effusion. TECHNIQUE: Computed tomography (CT) of the chest was performed without intravenous contrast. Automated exposure control and iterative reconstruction technique were employed. The dose-length product (DLP) was 389.13 mGy-cm. COMPARISON: Chest CT 09/29/2024 FINDINGS: There is a moderate-sized right pleural effusion. There is a trace left pleural effusion. There is a 4 mm nodule in right middle lobe, likely benign. There are dependent airspace opacities bilaterally, likely atelectasis. The heart size is normal. There are coronary artery calcifications. No pericardial effusion. There is liver surface nodularity, consistent with cirrhosis. Splenomegaly is noted. 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 There is mild periportal lymphadenopathy, likely reactive. There is a small volume of ascites. There is edema in the fat in the abdomen. There is mild thoracic spondylosis. There is chronic anterior wedging of multiple vertebral bodies. IMPRESSION: 1. Moderate-sized right pleural effusion. 2. Cirrhosis of the liver with portal venous hypertension. 3. Small volume of ascites. 09/30/24 Limited Abdominal Sonogram: Real-time sonographic imaging of the right upper quadrant was performed. Clinical History: Thrombocytopenia Findings: The liver demonstrates nodular contour without mass lesion or biliary dilatation. Small amount of upper abdominal ascites present.. Main portal vein demonstrates normal direction of flow. The gallbladder is well distended, and appears normal with no evidence of gallstone or wall thickening. The common bile duct measures 3 mm. The visualized aorta and IVC are unremarkable. Pancreas obscured by bowel gas shadowing. Spleen is enlarged, measuring 20.6 cm in length. Impression: Cirrhotic liver with associated splenomegaly, as detailed above. Small amount of abdominal ascites. 09/30/24: Summary 1. Definity contrast administered improved wall motion interpretation. 2. Left ventricular chamber dimension is normal. 3. Left ventricular systolic function is normal, estimated at 60-65%. 4. There is moderate concentric increased left ventricular wall thickness. 5. The left ventricular diastolic function is grade I diastolic dysfunction. 6. E/e' 6 is not elevated. 7. Left atrial chamber dimension is mildly enlarged. 8. Right atrial chamber dimension is mildly enlarged. 9. No pulmonary hypertension, estimated pulmonary arterial systolic pressure is 28 mmHg. Right Ventricle Right ventricular systolic function is normal and with normal TAPSE 2.3 cm. Right ventricular chamber dimension is normal. Right Atria Right atrial chamber dimension is mildly enlarged. 09/30/24: EXAMINATION: CTA chest PE protocol DATE: 09/29/2024 20:14 TRANSPORTATION ANALYST INDICATION: Positive d-dimer with shortness of breath TECHNIQUE: Computed tomographic angiography (CTA) of the chest was performed with 100 mL Omnipaque-350 intravenous contrast. The dose-length product was 690.60 mGy-cm. Maximum intensity projection 3D-reconstructions of the aorta and other arteries were constructed by the technologist on a separate workstation. COMPARISON: None. FINDINGS/OBSERVATIONS: PULMONARY ARTERIES: No filling defect is identified within the main or proximal pulmonary artery. The main pulmonary artery is not enlarged. THORACIC AORTA: No aneurysmal dilatation or dissection is present. The great vessels are intact LUNGS: Large right-sided pleural effusion with adjacent compressive atelectasis. The rest of the lungs are clear MEDIASTINUM: No morphologically suspicious or pathologically enlarged lymph nodes are identified within the mediastinum or bilateral axilla. BONES OF THE CHEST: No acute fracture. No significant degenerative disease. No lytic or blastic lesions. HEART: The heart is within the upper limits of normal for size, without pericardial effusion. IMPRESSION: No pulmonary embolus. No thoracic aortic dissection. Large right-sided pleural effusion with adjacent compressive atelectasis. Review of Systems 2 Constitutional: Constitutional: Reports no additional constitutional complaints Eyes: Eyes: Reports no additional eye complaints ENT: Reports system reviewed and no additional complaints, except as documented Cardiovascular: Cardiovascular: Reports no additional cardiovascular complaints Respiratory: Respiratory: Reports no additional respiratory complaints Gastrointestinal: Gastrointestinal: Reports no additional gastrointestinal complaints Musculoskeletal: Musculoskeletal: Reports no additional musculoskeletal complaints Neurologic: Reports system reviewed and no additional complaints, except as documented Psychiatric: Psychiatric: Reports no additional psychiatric complaints Endocrine: Endocrine: Reports no additional endocrine complaints Hematologic/Lymphatic: Hematologic/Lymphatic: Reports no additional hematologic/lymphatic complaints Allergic/Immunologic: Allergic/Immunologic: Reports no additional allergic/immunologic complaints [facility] Past Medical History Medical History (Updated 10/03/24 @ 12:35 by Dalton Gordillo MD) Pancytopenia Bronchitis Balanitis circinata Type 2 diabetes mellitus Diabetes mellitus HTN (hypertension) HLD (hyperlipidemia) Surgical History Surgical History History of hernia repair History of eye surgery x19 Family History Family History Father Family history of chronic obstructive pulmonary disease, Onset Age: 72 Mother Family history of malignant neoplasm, Onset Age: 68 Social History Social History Smoking status: Former smoker Alcohol intake: former Substance use: former Substance use type: does not use Last use: back in college over 40 years ago Do You Feel Safe in your Home?: Yes Lack of Transportation: No Lack of Food: Never True Current Housing: I Have Housing Concerned About Future Housing: No Difficulty Paying Gas/Electric Bills: No Difficulty Paying for Meds: YES Currently Unemployed: No Education: Associate Degree Difficulty w/ Childcare or Family Care: No Living arrangements: with family Spiritual care concerns: No Meds Home Medications and Allergies Home Medications ?Medication ?Instructions ?Recorded ?Confirmed ?Type nystatin 100,000 unit/gram topical 1 applic topical TID #30 grams 06/09/22 09/29/24 Rx cream amlodipine 5 mg tablet See Rx Instructions .Route 01/15/24 09/29/24 Rx .COMPLEX #90 tabs simvastatin 10 mg tablet See Rx Instructions .Route 04/10/24 09/29/24 Rx .COMPLEX #90 tabs lisinopril 20 mg tablet See Rx Instructions .Route 05/19/24 09/29/24 Rx .COMPLEX #90 tabs semaglutide 14 mg tablet (Rybelsus) 14 mg PO DAILY 90 days #90 tabs 06/02/24 09/29/24 Rx albuterol sulfate 90 mcg/actuation See Rx Instructions .Route 07/03/24 09/29/24 Rx aerosol inhaler .COMPLEX #25.5 grams glimepiride 4 mg tablet See Rx Instructions .Route 08/11/24 09/29/24 Rx .COMPLEX #90 tabs metformin 1,000 mg tablet See Rx Instructions .Route 09/26/24 09/29/24 Rx .COMPLEX #180 tabs doxycycline hyclate 100 mg capsule 100 mg PO Q12H 09/29/24 09/29/24 History prednisone 50 mg tablet 50 mg PO DAILY 09/29/24 09/29/24 History Allergies Allergy/AdvReac Type Severity Reaction Status Date / Time Penicillins Allergy Unknown Unknown Verified 09/30/24 14:06 Vital Signs Vital Signs - 24 hr 10/02/24 14:48 10/02/24 20:00 10/02/24 20:23 Temperature 36.5 C Pulse Rate 86 86 Respiratory Rate 18 20 Blood Pressure 131/71 Pulse Oximetry 97 Oxygen Delivery Room Air 10/02/24 20:30 10/02/24 20:33 10/02/24 21:00 Temperature 36.6 C Pulse Rate 86 90 Respiratory Rate 20 18 Blood Pressure 154/85 H Pulse Oximetry 95 96 Oxygen Delivery Room Air 10/03/24 01:59 10/03/24 02:08 10/03/24 06:00 Temperature 35.8 C L Pulse Rate 75 74 78 Respiratory Rate 20 20 20 Blood Pressure 120/75 Pulse Oximetry 96 Oxygen Delivery 10/03/24 08:00 10/03/24 10:11 10/03/24 10:11 Temperature 36.4 C L Pulse Rate 92 78 Respiratory Rate 18 20 Blood Pressure 129/78 Pulse Oximetry 94 93 Oxygen Delivery Room Air 10/03/24 10:22 Temperature Pulse Rate 65 Respiratory Rate 20 Blood Pressure Pulse Oximetry Oxygen Delivery Exam 2 Const: General: cooperative and comfortable Orientation/consciousness: o riented to person, oriented to place and oriented to time HENMT: Head: normal to inspection Ears: hearing grossly normal bilaterally Eyes: General: appearance normal, both eyes and all related structures Neck: Neck: normal visual inspection Chest: Chest palpation & inspection: normal inspection of the chest Resp: Effort & Inspection: normal respiratory effort and able to speak in complete sentences Auscultation: no crackles, no rales, no rhonchi, no wheezes and diminished lung sounds Other: decreased breath sounds right lower lobe Cardio: Jugular venous distension: no JVD GI: Inspection: normal to inspection GI Palp: No abdominal tenderness Skin: General skin exam: normal color Neuro: General: oriented to person, oriented to place and oriented to time Extrem: General: normal to inspection and edema Psych: Appearance: grossly normal Results Laboratory Findings 10/03/24 06:31 10/03/24 06:31 ABG, PT/INR, D-dimer: PT/INR, D-dimer PT 14.0 Seconds (11.1-14.7) 09/29/24 18:35 INR 1.1 09/29/24 18:35 D-Dimer 2.53 ug/mL (<0.48) H 09/29/24 18:35 Abnormal lab findings: Abnormal Labs 09/29/24 09/30/24 09/30/24 18:35 04:55 08:44 WBC 2.6 L 2.3 L RBC 3.74 L 3.90 L Hgb 11.4 L 11.7 L Hct 34.8 L 37.1 L MCHC 31.5 L RDW 15.1 H 15.2 H Plt Count 34 L 9 L* D MPV 12.0 H 12.6 H [place] % (Auto) 9.8 H Baso % (Auto) 0.0 L Absolute Neuts (auto) 1.1 L Monocytes % (Manual) 12 H Abs Lymphs (Manual) 0.91 L D-Dimer 2.53 H Chloride 108 H Carbon Dioxide 21 L BUN Creatinine 0.57 L 0.54 L Glucose POC Capillary Glucose 106 H Hemoglobin A1c Calcium 8.3 L 8.3 L % Saturation AST 74 H Albumin 3.4 L Pleural pH Stl Occult Blood (IFOB) Hepatitis A IgM Ab 09/30/24 09/30/24 09/30/24 12:11 14:31 16:36 WBC RBC Hgb Hct MCHC RDW Plt Count 60 L D MPV 10.5 H [place] % (Auto) Baso % (Auto) Absolute Neuts (auto) Monocytes % (Manual) Abs Lymphs (Manual) D-Dimer Chloride Carbon Dioxide BUN Creatinine Glucose POC Capillary Glucose Hemoglobin A1c Calcium % Saturation 14 L AST Albumin Pleural pH > 7.500 H Stl Occult Blood (IFOB) Hepatitis A IgM Ab 09/30/24 09/30/24 10/01/24 17:02 21:34 07:18 WBC 2.6 L RBC 3.67 L Hgb 10.8 L Hct 34.1 L MCHC 31.7 L RDW 14.6 H Plt Count 53 L MPV 10.6 H [place] % (Auto) Baso % (Auto) Absolute Neuts (auto) Monocytes % (Manual) Abs Lymphs (Manual) D-Dimer Chloride 108 H Carbon Dioxide BUN Creatinine 0.60 L Glucose 132 H POC Capillary Glucose 157 H 164 H Hemoglobin A1c Calcium % Saturation AST Albumin 3.3 L Pleural pH Stl Occult Blood (IFOB) Hepatitis A IgM Ab 10/01/24 10/01/24 10/01/24 08:07 11:31 13:14 WBC RBC Hgb Hct MCHC RDW Plt Count MPV [place] % (Auto) Baso % (Auto) Absolute Neuts (auto) Monocytes % (Manual) Abs Lymphs (Manual) D-Dimer Chloride Carbon Dioxide BUN Creatinine Glucose POC Capillary Glucose 159 H 174 H Hemoglobin A1c Calcium % Saturation AST Albumin Pleural pH Stl Occult Blood (IFOB) Positive H Hepatitis A IgM Ab 10/01/24 10/01/24 10/02/24 16:49 19:54 05:40 WBC 2.6 L RBC 3.81 L Hgb 11.3 L Hct 35.4 L MCHC 31.9 L RDW 14.7 H Plt Count 50 L MPV 11.7 H [place] % (Auto) Baso % (Auto) Absolute Neuts (auto) Monocytes % (Manual) Abs Lymphs (Manual) D-Dimer Chloride Carbon Dioxide BUN 8 L Creatinine 0.62 L Glucose 152 H POC Capillary Glucose 178 H 168 H Hemoglobin A1c Calcium % Saturation AST Albumin 3.2 L Pleural pH Stl Occult Blood (IFOB) Hepatitis A IgM Ab 10/02/24 10/02/24 10/02/24 07:52 11:42 16:33 WBC RBC Hgb Hct MCHC RDW Plt Count MPV [place] % (Auto) Baso % (Auto) Absolute Neuts (auto) Monocytes % (Manual) Abs Lymphs (Manual) D-Dimer Chloride Carbon Dioxide BUN Creatinine Glucose POC Capillary Glucose 159 H 188 H 195 H Hemoglobin A1c Calcium % Saturation AST Albumin Pleural pH Stl Occult Blood (IFOB) Hepatitis A IgM Ab 10/02/24 10/03/24 10/03/24 20:56 06:30 06:31 WBC 2.9 L RBC 3.84 L Hgb 11.5 L Hct 35.6 L MCHC RDW 15.1 H Plt Count 45 L MPV 12.0 H [place] % (Auto) Baso % (Auto) Absolute Neuts (auto) Monocytes % (Manual) Abs Lymphs (Manual) D-Dimer Chloride Carbon Dioxide 21 L BUN 8 L Creatinine 0.49 L Glucose 148 H POC Capillary Glucose 143 H Hemoglobin A1c 7.0 H Calcium % Saturation AST Albumin 3.2 L Pleural pH Stl Occult Blood (IFOB) Hepatitis A IgM Ab Reactive A 10/03/24 10/03/24 08:05 11:41 WBC RBC Hgb Hct MCHC RDW Plt Count MPV [place] % (Auto) Baso % (Auto) Absolute Neuts (auto) Monocytes % (Manual) Abs Lymphs (Manual) D-Dimer Chloride Carbon Dioxide BUN Creatinine Glucose POC Capillary Glucose 136 H 209 H Hemoglobin A1c Calcium % Saturation AST Albumin Pleural pH Stl Occult Blood (IFOB) Hepatitis A IgM Ab Diagnostic Findings Additional studies: ITS Impressions Chest X-Ray 09/29/24 14:49 IMPRESSION: 1. Stable airspace opacities are lung base, consistent with atelectasis versus pneumonia. 2. Stable small right pleural effusion. Chest CTA 09/29/24 20:12 IMPRESSION: No pulmonary embolus. No thoracic aortic dissection. Large right-sided pleural effusion with adjacent compressive atelectasis. Abdomen Ultrasound 09/30/24 08:11 Impression: Cirrhotic liver with associated splenomegaly, as detailed above. Small amount of abdominal ascites. Thoracentesis Ultrasound 09/30/24 15:32 IMPRESSION: 1. Successful ultrasound-guided thoracentesis yielding 1000 mL of priti-colored fluid. Chest X-Ray 09/30/24 15:34 IMPRESSION: As above. Chest CT 10/02/24 13:39 IMPRESSION: 1. Moderate-sized right pleural effusion. 2. Cirrhosis of the liver with portal venous hypertension. 3. Small volume of ascites. Chest X-Ray 10/03/24 08:50 IMPRESSION: 1. Stable moderate-sized right pleural effusion.
[2024-10-03] MEDS: INSULIN ASPART (*BKC) 100 UNITS/ML SUB-Q (12:25)
[2024-10-03 13:20] LABS: Free T4 Free Thyroxine 1.12 ng/dL (0.78-2.19)
[2024-10-03 16:56] LABS: Glucose Point of Care 184 mg/dl (65-105)
[2024-10-03] MEDS: levoFLOXacin 750 MG TABLET PO (21:48)
[2024-10-03] MEDS: guaiFENesin/DEXTROMETHORPHAN 10 ML UDC 5 ML PO (21:49)
[2024-10-03 23:09] LABS: Glucose Point of Care 148 mg/dl (65-105)
[2024-10-04] VITALS (9 sets, daily range): BP systolic 119–126; BP diastolic 64–83; PULSE 65–93; RESP 16–20; TEMP 36.6–36.9; O2SAT 92–98
[2024-10-04] MEDS: IPRATROPIUM 0.5 MG/ALBUTEROL SULFATE 2.5 MG AMPUL.NEB 3 ML INHALATION ×3 (02:15→14:12)
[2024-10-04] MEDS: metroNIDAZOLE 500 MG TABLET PO ×3 (04:55→21:33)
[2024-10-04 07:37] LABS: Hemoglobin 11.7 g/dL (14.0-18.0); Immature Platelet Fraction Pct 7.1 % (0.9-11.2); Mean Corpuscular HGB Conc 31.6 g/dl (32-36); Mean Corpuscular Hemoglobin 29.7 pg (26-34); Mean Corpuscular Volume 93.9 fl (80-100); Platelet Count Result 51 k/mm3 (150-375); Red Blood Count 3.94 M/mm3 (4.6-6.20); Red Cell Distribution Width 15.2 % (11.5-14.5); White Blood Count 3.8 K/mm3 (4.5-10.0)
[2024-10-04 07:50] LABS: Alanine Aminotransferase 34 U/L (6-50); Albumin Level 3.5 g/dL (3.5-5.1); Alkaline Phosphatase 110 U/L (38-126); Anion Gap 8 mmol/L (4-12); Aspartate Amino Transferase 45 U/L (17-59); Bilirubin,Total 1.4 mg/dL (0.2-1.3); Blood Urea Nitrogen 8 mg/dL (9-20); Calcium 8.5 mg/dL (8.4-10.2); Carbon Dioxide 24 mmol/L (22-30); Chloride 106 mmol/L (98-107); Estimated CRCL calculation 141 ml/min; Estimated Glomerular Filt Rate > 60; Glucose 134 mg/dL (65-110); Potassium 3.9 mmol/L (3.4-5.0); Sodium 138 mmol/L (137-145)
[2024-10-04 08:17] LABS: Glucose Point of Care 149 mg/dl (65-105)
[2024-10-04] MEDS: BENZONATATE 100 MG CAPSULE PO ×2 (10:11→21:33)
[2024-10-04] MEDS: lisinopriL 20 MG TABLET PO (10:11)
[2024-10-04] MEDS: SIMVASTATIN 10 MG TABLET PO (10:11)
[2024-10-04] MEDS: amLODIPine BESYLATE 5 MG TABLET PO (10:11)
[2024-10-04] MEDS: ACETAMINOPHEN 325 MG TABLET 650 MG PO ×2 (10:12→21:33)
[2024-10-04 10:44] LABS: Hepatitis B Surface Antigen Negative (Negative)
[2024-10-04 10:49] LABS: Hepatitis B Core IgM Result Negative (Negative)
[2024-10-04 11:01] LABS: Hepatitis B Surface Anti Res Negative
[2024-10-04 12:15] LABS: Glucose Point of Care 159 mg/dl (65-105)
--- NOTE | 2024-10-04 14:10 | PM.IMPN ---
Progress Note: A&P Assessment and Plan (1) Hemoptysis: Code(s): R04.2 - Hemoptysis Status: Acute (2) Pleural effusion: Code(s): J90 - Pleural effusion, not elsewhere classified Status: Acute Plan This is a pleasant 63-year-old male with a history of obesity, aqd-iapaeou-yjyvrfggi diabetes mellitus, asthma, chronic hypertension, hyperlipidemia, history of cataract surgery at age 4 left eye now blind. Presents to [place] [facility] on 09/29/2024 with complaint of bloody sputum. He reports presenting to an urgent care 2 days prior to admission for a cough and was diagnosed with pneumonia and prescribed antibiotics. On the day of admission in the morning he coughed up blood and motions with his fingers a small amount approximately 5 cc. Your workup demonstrated 97% O2 saturation on room air. Upon evaluation the patient was resting comfortably. WBC count 2.6, hemoglobin 11.4, platelet 34. D-dimer 2.53, serum creatinine 0.57, quad viral screen negative. CTA chest did not demonstrate PE or thoracic aortic dissection. Identifies a large right-sided pleural effusion with adjacent compressive atelectasis. Patient was given ceftriaxone and azithromycin as well as a 1 L normal saline bolus. Dr. Garcia consulted from ER due to pancytopenia. Recommended no platelet transfusion unless under 20 K. recommends trending platelet count with the hope platelets are above 50 K or we can perform thoracentesis. ----- Hematology will see in consultation. Will trend CBC. Diagnostic and therapeutic thoracentesis ordered pending repeat platelet count. His hemoptysis is small and he has not had any episodes in only reports dry cough since admission. Hemoglobin acceptable at 11.4. Possibly a parapneumonic effusion, will add metronidazole in addition to ceftriaxone and azithromycin. Effusion does not appear loculated. Accu-Cheks a.c. HS with insulin sliding scale. Restart S[employer]ER [employer]IENCE [employer]CHITECT amlodipine and lisinopril. 10/01: Evaluated by Oncologist yesterday. His pancytopenia is secondary to liver cirrhosis and worsening of thrombocytopenia could be secondary to superimposed autoimmune thrombocytopenia. Liver cirrhosis is likely secondary to obesity and fatty liver. ----- Pancytopenia: Status post 2U PLT Neutropenic precautions DC Ceftriaxone and Azithromycin Started on levofloxacin Watch for any spontaneous bleeding, NO OBVIOUS BLEEDING NOW Appreciate mid wife consultation, consider possible myelodysplastic syndrome, bone marrow biopsy White cell of 2.3. Afebrile, no sign of infection hemoglobin 11.7 Evaluated by Oncologist yesterday. His pancytopenia is secondary to liver cirrhosis and worsening of thrombocytopenia could be secondary to superimposed autoimmune thrombocytopenia. Liver cirrhosis is likely secondary to obesity and fatty liver. SCDs. Patient wishes to be full code. Recurrent Right Pleural Effusion -Repeated chest CT on 10/02 shows moderate size right pleural effusion. -On 0 09/30 patient had a successful thoracocentesis and was drained 1 L from right pleural effusion. -Ordered repeat thoracocentesis with pleural fluid cytology -Pleural studies pending to calculate light's criteria. -Possible from liver cirrhosis -Order hepatitis panel, HbA1c and lipid panel -Reviewed echocardiogram which shows no significant finding. -No evidence of kidney disease. Subjective Date/time seen: 10/04/24 14:10 Interval history: Ordered US guided thoracocentesis with pleural fluid cytology. Patient agrees with the plan and wants his pleural fluid to be removed before returning to home. If fluid returns will consider PleurX cath. Review of Systems Review of Systems: All systems reviewed & are unremarkable except as noted in HPI and below (HPI) Exam Const: General: comfortable and no acute distress Neck: Neck: supple Resp: Effort & Inspection: normal respiratory effort Other: Diminished lung sounds right lung, scant expiratory wheeze Cardio: Rate: regular rate Rhythm: regular rhythm Heart sounds: no gallops, no murmurs and no rubs Extrem: Other: 1+ Objective Data Vital Signs Vital Signs: Vital Signs - 24 hr 10/03/24 14:58 10/03/24 15:08 10/03/24 16:00 Temperature 97.6 F Pulse Rate 91 82 88 Respiratory Rate 20 20 20 Blood Pressure 125/67 Pulse Oximetry 96 Oxygen Delivery Fraction of Inspired Oxygen 10/03/24 20:00 10/03/24 20:35 10/03/24 20:48 Temperature Pulse Rate 74 77 Respiratory Rate 18 18 Blood Pressure Pulse Oximetry Oxygen Delivery Room Air Fraction of Inspired Oxygen 10/03/24 21:13 10/04/24 02:16 10/04/24 02:22 Temperature 98.0 F Pulse Rate 82 68 65 Respiratory Rate 16 18 18 Blood Pressure 133/63 Pulse Oximetry 96 Oxygen Delivery Fraction of Inspired Oxygen 10/04/24 05:24 10/04/24 08:00 10/04/24 08:26 Temperature 97.8 F 98.2 F Pulse Rate 80 80 Respiratory Rate 16 18 Blood Pressure 124/64 119/83 Pulse Oximetry 98 97 92 Oxygen Delivery Room Air Fraction of Inspired Oxygen 10/04/24 08:26 10/04/24 10:10 Temperature Pulse Rate 90 Respiratory Rate 20 Blood Pressure Pulse Oximetry Oxygen Delivery Room Air Fraction of Inspired Oxygen Intake/Output Intake/Output: Intake & Output 10/01/24 10/02/24 10/03/24 10/04/24 23:59 23:59 23:59 23:59 Intake Total 750 1260 1625 1000 Output Total 5 Balance 750 1260 1620 1000 Meds/Results Medications: Active Medications Generic Name Dose Route Start Last Admin Trade Name Freq PRN Reason Stop Dose Admin Acetaminophen 650 mg 09/29/24 21:05 10/04/24 10:12 Acetaminophen 325 Mg Tablet PO 650 mg Q4H PRN Administration Mild Pain (1-3) or Fever Albuterol 2 puff 09/29/24 23:36 Albuterol Sulfate (*Sp) Aerosol 1 Puff INHALATION Q6HRT PRN Shortness Of Breath Albuterol/Ipratropium 3 ml 09/30/24 14:00 10/04/24 08:26 Ipratropium 0.5 Mg/Albuterol Sulfate 2.5 Mg Ampul.Neb 3 Ml INHALATION 3 ml Q6HRT AIDAN Administration Amlodipine Besylate 5 mg 09/29/24 23:40 10/04/24 10:11 Amlodipine Besylate 5 Mg Tablet PO 5 mg DAILY AIDAN Administration Benzonatate 100 mg 09/30/24 21:34 10/04/24 10:11 Benzonatate 100 Mg Capsule PO 100 mg TID PRN Administration cough Dextrose 12.5 gm 09/29/24 23:37 Dextrose 50% 25 Gm/50 Ml Syringe IV PUSH PRN PRN Hypoglycemia Protocol Glucose 15 gm 09/29/24 23:37 Glucose Oral Gel 15 Gm Of Glucse In 37.5 Gm Tube PO PRN PRN Hypoglycemia Protocol Guaifenesin/Dextromethorphan 5 ml 09/30/24 21:24 10/03/24 21:49 Guaifenesin/Dextromethorphan 10 Ml Udc PO 5 ml Q4H PRN Administration Cough Dextrose 1,000 mls @ 100 mls/hr 09/29/24 23:37 Dextrose 5% 1,000 Ml IVPB PRN PRN Hypoglycemia Protocol Insulin Aspart 2 - 5 units 09/30/24 08:00 10/04/24 12:49 Insulin Aspart (*Bkc) 100 Units/Ml SUB-Q Not Given TIDWM AIDAN Protocol Insulin Aspart 1 - 2 units 09/30/24 21:00 10/03/24 21:14 Insulin Aspart (*Bkc) 100 Units/Ml SUB-Q Not Given HS AIDAN Protocol Levofloxacin 750 mg 10/01/24 21:00 10/03/24 21:48 Levofloxacin 750 Mg Tablet PO 10/05/24 23:59 750 mg DAILY@2100 AIDAN Administration Lisinopril 20 mg 09/30/24 09:00 10/04/24 10:11 Lisinopril 20 Mg Tablet PO 20 mg QAM AIDAN Administration Metronidazole 500 mg 10/01/24 22:00 10/04/24 04:55 Metronidazole 500 Mg Tablet PO 10/05/24 23:59 500 mg Q8HR AIDAN Administration Ondansetron HCl 4 mg 09/29/24 21:05 Ondansetron Inj 4 Mg/2 Ml Vial IV PUSH Q4H PRN Nausea Simvastatin 10 mg 09/29/24 23:40 10/04/24 10:11 Simvastatin 10 Mg Tablet PO 10 mg QAM [facility] Administration Radiology Results: ITS Impressions Chest CTA 09/29/24 20:12 IMPRESSION: No pulmonary embolus. No thoracic aortic dissection. Large right-sided pleural effusion with adjacent compressive atelectasis. Abdomen Ultrasound 09/30/24 08:11 Impression: Cirrhotic liver with associated splenomegaly, as detailed above. Small amount of abdominal ascites. Thoracentesis Ultrasound 09/30/24 15:32 IMPRESSION: 1. Successful ultrasound-guided thoracentesis yielding 1000 mL of priti-colored fluid. Chest CT 10/02/24 13:39 IMPRESSION: 1. Moderate-sized right pleural effusion. 2. Cirrhosis of the liver with portal venous hypertension. 3. Small volume of ascites. Chest X-Ray 10/03/24 08:50 IMPRESSION: 1. Stable moderate-sized right pleural effusion. Labs Labs: Laboratory Results - last 24 hr 10/03/24 10/03/24 10/04/24 16:43 21:10 06:50 WBC RBC Hgb Hct MCV MCH MCHC RDW Plt Count MPV % Immature Plt Fraction Sodium Potassium Chloride Carbon Dioxide Anion Gap BUN Creatinine Estim Creat Clear Calc Estimated GFR Glucose POC Capillary Glucose 184 H 148 H Calcium Total Bilirubin AST ALT Alkaline Phosphatase Total Protein Albumin Hep Bs Antigen Negative Hep Bs Antibody Negative Hep B Core IgM Ab Negative 10/04/24 10/04/24 10/04/24 06:51 07:54 11:30 WBC 3.8 L RBC 3.94 L Hgb 11.7 L Hct 37.0 L MCV 93.9 MCH 29.7 MCHC 31.6 L RDW 15.2 H Plt Count 51 L MPV 12.0 H % Immature Plt Fraction 7.1 Sodium 138 Potassium 3.9 Chloride 106 Carbon Dioxide 24 Anion Gap 8 BUN 8 L Creatinine 0.59 L Estim Creat Clear Calc 141 Estimated GFR > 60 Glucose 134 H POC Capillary Glucose 149 H 159 H Calcium 8.5 Total Bilirubin 1.4 H AST 45 ALT 34 Alkaline Phosphatase 110 Total Protein 7.0 Albumin 3.5 Hep Bs Antigen Hep Bs Antibody Hep B Core IgM Ab Hospitalist MIPS Advance Care Plan I have confirmed that the patient's Advanced Care Plan is present, code status is documented, or surrogate decision maker is listed in patient medical record.: Yes Medication Reconciliation I have utilized all available resources to obtain, update and review the patients current medications (includes all prescriptions, OTC, herbals, cannabis, and nutritional supplements).: Yes
[2024-10-04] MEDS: guaiFENesin/DEXTROMETHORPHAN 10 ML UDC 5 ML PO ×2 (15:44→22:15)
[2024-10-04 17:13] LABS: Glucose Point of Care 173 mg/dl (65-105)
[2024-10-04 21:12] LABS: Glucose Point of Care 149 mg/dl (65-105)
[2024-10-04] MEDS: levoFLOXacin 750 MG TABLET PO (21:33)
[2024-10-05] VITALS (11 sets, daily range): BP systolic 128–138; BP diastolic 67–87; PULSE 73–89; RESP 18; TEMP 36.3–37.2; O2SAT 93–99
--- NOTE | 2024-10-05 00:35 | PCRCNOTE ---
Window of time for administration has passed. See next scheduled administration.
[2024-10-05] MEDS: IPRATROPIUM 0.5 MG/ALBUTEROL SULFATE 2.5 MG AMPUL.NEB 3 ML INHALATION ×3 (02:05→20:13)
[2024-10-05] MEDS: metroNIDAZOLE 500 MG TABLET PO ×3 (05:06→21:29)
[2024-10-05] MEDS: guaiFENesin/DEXTROMETHORPHAN 10 ML UDC 5 ML PO ×2 (05:09→21:29)
[2024-10-05 07:15] LABS: Hematocrit 37.8 % (42.0-52.0); Hemoglobin 11.9 g/dL (14.0-18.0); Immature Platelet Fraction Pct 6.5 % (0.9-11.2); Mean Corpuscular HGB Conc 31.5 g/dl (32-36); Mean Corpuscular Hemoglobin 29.5 pg (26-34); Mean Corpuscular Volume 93.8 fl (80-100); Mean Platelet Volume 11.9 fl (7.4-10.4); Platelet Count Result 50 k/mm3 (150-375); Red Blood Count 4.03 M/mm3 (4.6-6.20); Red Cell Distribution Width 15.2 % (11.5-14.5); White Blood Count 4.4 K/mm3 (4.5-10.0)
[2024-10-05 07:23] LABS: Hepatitis B Core Ab Total NON-REACTIVE (NON-REACTIVE)
[2024-10-05 07:29] LABS: Alanine Aminotransferase 30 U/L (6-50); Albumin Level 3.3 g/dL (3.5-5.1); Alkaline Phosphatase 114 U/L (38-126); Anion Gap 7 mmol/L (4-12); Aspartate Amino Transferase 44 U/L (17-59); Bilirubin,Total 1.4 mg/dL (0.2-1.3); Blood Urea Nitrogen 9 mg/dL (9-20); Calcium 8.5 mg/dL (8.4-10.2); Carbon Dioxide 25 mmol/L (22-30); Chloride 105 mmol/L (98-107); Estimated CRCL calculation 131 ml/min; Estimated Glomerular Filt Rate > 60; Glucose 129 mg/dL (65-110); Potassium 4.1 mmol/L (3.4-5.0); Sodium 137 mmol/L (137-145)
[2024-10-05 07:34] LABS: Hepatitis Be Antibody NON-REACTIVE (NON-REACTIVE); Hepatitis Be Antigen NON-REACTIVE (NON-REACTIVE)
[2024-10-05 08:16] LABS: Glucose Point of Care 145 mg/dl (65-105)
--- NOTE | 2024-10-05 08:32 | PM.IMPN ---
Progress Note: A&P Assessment and Plan (1) Hemoptysis: Code(s): R04.2 - Hemoptysis Status: Acute (2) Pleural effusion: Code(s): J90 - Pleural effusion, not elsewhere classified Status: Acute (3) Hepatitis A: Code(s): B15.9 - Hepatitis A without hepatic coma Status: Acute Plan This is a pleasant 63-year-old male with a history of obesity, uyg-zsjvfno-nwhsxtduo diabetes mellitus, asthma, chronic hypertension, hyperlipidemia, history of cataract surgery at age 4 left eye now blind. Presents to [place] ER on 09/29/2024 with complaint of bloody sputum. He reports presenting to an urgent care 2 days prior to admission for a cough and was diagnosed with pneumonia and prescribed antibiotics. On the day of admission in the morning he coughed up blood and motions with his fingers a small amount approximately 5 cc. Your workup demonstrated 97% O2 saturation on room air. Upon evaluation the patient was resting comfortably. WBC count 2.6, hemoglobin 11.4, platelet 34. D-dimer 2.53, serum creatinine 0.57, quad viral screen negative. CTA chest did not demonstrate PE or thoracic aortic dissection. Identifies a large right-sided pleural effusion with adjacent compressive atelectasis. Patient was given ceftriaxone and azithromycin as well as a 1 L normal saline bolus. Dr. Garcia consulted from ER due to pancytopenia. Recommended no platelet transfusion unless under 20 K. recommends trending platelet count with the hope platelets are above 50 K or we can perform thoracentesis. ----- Hematology will see in consultation. Will trend CBC. Diagnostic and therapeutic thoracentesis ordered pending repeat platelet count. His hemoptysis is small and he has not had any episodes in only reports dry cough since admission. Hemoglobin acceptable at 11.4. Possibly a parapneumonic effusion, will add metronidazole in addition to ceftriaxone and azithromycin. Effusion does not appear loculated. Accu-Cheks a.c. HS with insulin sliding scale. 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 10/01: Evaluated by Oncologist yesterday. His pancytopenia is secondary to liver cirrhosis and worsening of thrombocytopenia could be secondary to superimposed autoimmune thrombocytopenia. Liver cirrhosis is likely secondary to obesity and fatty liver. ----- Pancytopenia: Status post 2U PLT Neutropenic precautions DC Ceftriaxone and Azithromycin Started on levofloxacin Watch for any spontaneous bleeding, NO OBVIOUS BLEEDING NOW Appreciate roving hauler consultation, consider possible myelodysplastic syndrome, bone marrow biopsy White cell of 2.3. Afebrile, no sign of infection hemoglobin 11.7 Evaluated by Oncologist yesterday. His pancytopenia is secondary to liver cirrhosis and worsening of thrombocytopenia could be secondary to superimposed autoimmune thrombocytopenia. Liver cirrhosis is likely secondary to obesity and fatty liver. SCDs. Patient wishes to be full code. Recurrent Right Pleural Effusion -Repeated chest CT on 10/02 shows moderate size right pleural effusion. -On 0 09/30 patient had a successful thoracocentesis and was drained 1 L from right pleural effusion. -Ordered repeat thoracocentesis with pleural fluid cytology -Pleural studies pending to calculate light's criteria. -Possible from liver cirrhosis -Order hepatitis panel, HbA1c and lipid panel -Reviewed echocardiogram which shows no significant finding. -No evidence of kidney disease. Hepatitis A Positive for IgM Hep A Order total Hep A antibody Needs to follow up with Supplemental Nurse as OP Subjective Date/time seen: 10/05/24 08:32 Interval history: No acute event. Advised to f/u with digital sales director for the new diagnosis of Hep A.Ordered US guided thoracocentesis with pleural fluid cytology. Patient agrees with the plan and wants his pleural fluid to be removed before returning to home. If fluid returns will consider PleurX cath. Review of Systems Review of Systems: All systems reviewed & are unremarkable except as noted in HPI and below (HPI) Exam Const: General: comfortable and no acute distress Neck: Neck: supple Resp: Effort & Inspection: normal respiratory effort Other: Diminished lung sounds right lung, scant expiratory wheeze Cardio: Rate: regular rate Rhythm: regular rhythm Heart sounds: no gallops, no murmurs and no rubs Extrem: Other: 1+ Objective Data Vital Signs Vital Signs: Vital Signs - 24 hr 10/04/24 10:10 10/04/24 14:00 10/04/24 14:12 Temperature 98.4 F Pulse Rate 93 Respiratory Rate 16 Blood Pressure 124/64 Pulse Oximetry 97 96 Oxygen Delivery Room Air Room Air Fraction of Inspired Oxygen 10/04/24 14:12 10/04/24 14:24 10/04/24 20:00 Temperature Pulse Rate 82 80 Respiratory Rate 20 20 Blood Pressure Pulse Oximetry Oxygen Delivery Room Air Fraction of Inspired Oxygen 10/04/24 22:00 10/05/24 00:00 10/05/24 02:05 Temperature 98.5 F 98.9 F Pulse Rate 77 85 80 Respiratory Rate 18 18 18 Blood Pressure 126/70 138/73 Pulse Oximetry 97 93 Oxygen Delivery Fraction of Inspired Oxygen 10/05/24 02:08 10/05/24 02:14 10/05/24 06:00 Temperature 97.9 F Pulse Rate 80 81 76 Respiratory Rate 18 18 Blood Pressure 133/87 Pulse Oximetry 94 94 Oxygen Delivery Room Air Fraction of Inspired Oxygen 21 Intake/Output Intake/Output: Intake & Output 10/02/24 10/03/24 10/04/24 10/05/24 23:59 23:59 23:59 23:59 Intake Total 1260 1625 1240 Output Total 5 Balance 1260 1620 1240 Meds/Results Medications: Active Medications Generic Name Dose Route Start Last Admin Trade Name Freq PRN Reason Stop Dose Admin Acetaminophen 650 mg 09/29/24 21:05 10/04/24 21:33 Acetaminophen 325 Mg Tablet PO 650 mg Q4H PRN Administration Mild Pain (1-3) or Fever Albuterol 2 puff 09/29/24 23:36 Albuterol Sulfate (*Sp) Aerosol 1 Puff INHALATION Q6HRT PRN Shortness Of Breath Albuterol/Ipratropium 3 ml 09/30/24 14:00 10/05/24 02:05 Ipratropium 0.5 Mg/Albuterol Sulfate 2.5 Mg Ampul.Neb 3 Ml INHALATION 3 ml Q6HRT AIDAN Administration Amlodipine Besylate 5 mg 09/29/24 23:40 10/04/24 10:11 Amlodipine Besylate 5 Mg Tablet PO 5 mg DAILY IADAN Administration Benzonatate 100 mg 09/30/24 21:34 10/04/24 21:33 Benzonatate 100 Mg Capsule PO 100 mg TID PRN Administration cough Dextrose 12.5 gm 09/29/24 23:37 Dextrose 50% 25 Gm/50 Ml Syringe IV PUSH PRN PRN Hypoglycemia Protocol Glucose 15 gm 09/29/24 23:37 Glucose Oral Gel 15 Gm Of Glucse In 37.5 Gm Tube PO PRN PRN Hypoglycemia Protocol Guaifenesin/Dextromethorphan 5 ml 09/30/24 21:24 10/05/24 05:09 Guaifenesin/Dextromethorphan 10 Ml Udc PO 5 ml Q4H PRN Administration Cough Dextrose 1,000 mls @ 100 mls/hr 09/29/24 23:37 Dextrose 5% 1,000 Ml IVPB PRN PRN Hypoglycemia Protocol Insulin Aspart 2 - 5 units 09/30/24 08:00 10/04/24 18:11 Insulin Aspart (*Bkc) 100 Units/Ml SUB-Q Not Given TIDWM AIDAN Protocol Insulin Aspart 1 - 2 units 09/30/24 21:00 10/04/24 21:58 Insulin Aspart (*Bkc) 100 Units/Ml SUB-Q Not Given HS AIDAN Protocol Levofloxacin 750 mg 10/01/24 21:00 10/04/24 21:33 Levofloxacin 750 Mg Tablet PO 10/05/24 23:59 750 mg DAILY@2100 AIDAN Administration Lisinopril 20 mg 09/30/24 09:00 10/04/24 10:11 Lisinopril 20 Mg Tablet PO 20 mg QAM AIDAN Administration Metronidazole 500 mg 10/01/24 22:00 10/05/24 05:06 Metronidazole 500 Mg Tablet PO 10/05/24 23:59 500 mg Q8HR AIDAN Administration Ondansetron HCl 4 mg 09/29/24 21:05 Ondansetron Inj 4 Mg/2 Ml Vial IV PUSH Q4H PRN Nausea Simvastatin 10 mg 09/29/24 23:40 10/04/24 10:11 Simvastatin 10 Mg Tablet PO 10 mg QAM AIDAN Administration Radiology Results: ITS Impressions Chest CTA 09/29/24 20:12 IMPRESSION: No pulmonary embolus. No thoracic aortic dissection. Large right-sided pleural effusion with adjacent compressive atelectasis. Abdomen Ultrasound 09/30/24 08:11 Impression: Cirrhotic liver with associated splenomegaly, as detailed above. Small amount of abdominal ascites. Thoracentesis Ultrasound 09/30/24 15:32 IMPRESSION: 1. Successful ultrasound-guided thoracentesis yielding 1000 mL of priti-colored fluid. Chest CT 10/02/24 13:39 IMPRESSION: 1. Moderate-sized right pleural effusion. 2. Cirrhosis of the liver with portal venous hypertension. 3. Small volume of ascites. Chest X-Ray 10/03/24 08:50 IMPRESSION: 1. Stable moderate-sized right pleural effusion. Labs Labs: Laboratory Results - last 24 hr 02/10/04/24 10/04/24 06:50 11:30 16:44 WBC RBC Hgb Hct MCV MCH MCHC RDW Plt Count MPV % Immature Plt Fraction Sodium Potassium Chloride Carbon Dioxide Anion Gap BUN Creatinine Estim Creat Clear Calc Estimated GFR Glucose POC Capillary Glucose 159 H 173 H Calcium Total Bilirubin AST ALT Alkaline Phosphatase Total Protein Albumin Hep Bs Antigen Negative Hep Bs Antibody Negative Hep B Core Total Ab Non-reactive Hep B Core IgM Ab Negative Hepatitis Be Antibody Non-reactive Hepatitis Be Antigen Non-reactive 10/04/24 10/05/24 10/05/24 21:03 07:07 08:09 WBC 4.4 L RBC 4.03 L Hgb 11.9 L Hct 37.8 L MCV 93.8 MCH 29.5 MCHC 31.5 L RDW 15.2 H Plt Count 50 L MPV 11.9 H % Immature Plt Fraction 6.5 Sodium 137 Potassium 4.1 Chloride 105 Carbon Dioxide 25 Anion Gap 7 BUN 9 Creatinine 0.64 L Estim Creat Clear Calc 131 Estimated GFR > 60 Glucose 129 H POC Capillary Glucose 149 H 145 H Calcium 8.5 Total Bilirubin 1.4 H AST 44 ALT 30 Alkaline Phosphatase 114 Total Protein 7.0 Albumin 3.3 L Hep Bs Antigen Hep Bs Antibody Hep B Core Total Ab Hep B Core IgM Ab Hepatitis Be Antibody Hepatitis Be Antigen Hospitalist MIPS Advance Care Plan I have confirmed that the patient's Advanced Care Plan is present, code status is documented, or surrogate decision maker is listed in patient medical record.: Yes Medication Reconciliation I have utilized all available resources to obtain, update and review the patients current medications (includes all prescriptions, OTC, herbals, cannabis, and nutritional supplements).: Yes
[2024-10-05] MEDS: amLODIPine BESYLATE 5 MG TABLET PO (09:01)
[2024-10-05] MEDS: lisinopriL 20 MG TABLET PO (09:01)
[2024-10-05] MEDS: SIMVASTATIN 10 MG TABLET PO (09:04)
[2024-10-05] MEDS: BENZONATATE 100 MG CAPSULE PO (09:05)
[2024-10-05] MEDS: ACETAMINOPHEN 325 MG TABLET 650 MG PO ×2 (09:06→21:29)
[2024-10-05 11:55] LABS: Glucose Point of Care 178 mg/dl (65-105)
--- NOTE | 2024-10-05 16:12 | PCRCNOTE ---
Window of time for administration has passed. See next scheduled administration.
[2024-10-05 17:22] LABS: Glucose Point of Care 130 mg/dl (65-105)
[2024-10-05] MEDS: levoFLOXacin 750 MG TABLET PO (21:29)
[2024-10-05 22:12] LABS: Glucose Point of Care 199 mg/dl (65-105)
[2024-10-05 23:38] LABS: Platelet Antibody, Direct IgG NEGATIVE (NEGATIVE)
[2024-10-06] VITALS (14 sets, daily range): BP systolic 121–140; BP diastolic 56–75; PULSE 71–92; RESP 14–20; TEMP 36.4–37.1; O2SAT 91–100
[2024-10-06] MEDS: IPRATROPIUM 0.5 MG/ALBUTEROL SULFATE 2.5 MG AMPUL.NEB 3 ML INHALATION ×3 (01:56→14:12)
[2024-10-06 08:11] LABS: Glucose Point of Care 141 mg/dl (65-105)
[2024-10-06 08:17] LABS: Hematocrit 37.6 % (42.0-52.0); Hemoglobin 11.8 g/dL (14.0-18.0); Immature Platelet Fraction Pct 7.2 % (0.9-11.2); Mean Corpuscular HGB Conc 31.4 g/dl (32-36); Mean Corpuscular Hemoglobin 29.9 pg (26-34); Mean Corpuscular Volume 95.2 fl (80-100); Mean Platelet Volume 12.1 fl (7.4-10.4); Platelet Count Result 43 k/mm3 (150-375); Red Blood Count 3.95 M/mm3 (4.6-6.20); Red Cell Distribution Width 14.9 % (11.5-14.5); White Blood Count 3.5 K/mm3 (4.5-10.0)
[2024-10-06 09:09] LABS: Alanine Aminotransferase 27 U/L (6-50); Albumin Level 3.3 g/dL (3.5-5.1); Alkaline Phosphatase 96 U/L (38-126); Anion Gap 8 mmol/L (4-12); Aspartate Amino Transferase 45 U/L (17-59); Bilirubin,Total 1.3 mg/dL (0.2-1.3); Blood Urea Nitrogen 9 mg/dL (9-20); Calcium 8.3 mg/dL (8.4-10.2); Carbon Dioxide 23 mmol/L (22-30); Chloride 106 mmol/L (98-107); Estimated CRCL calculation 141 ml/min; Estimated Glomerular Filt Rate > 60; Glucose 130 mg/dL (65-110); Potassium 4.3 mmol/L (3.4-5.0); Sodium 137 mmol/L (137-145)
[2024-10-06] MEDS: amLODIPine BESYLATE 5 MG TABLET PO (09:22)
[2024-10-06] MEDS: SIMVASTATIN 10 MG TABLET PO (09:22)
[2024-10-06] MEDS: lisinopriL 20 MG TABLET PO (09:22)
[2024-10-06 10:49] LABS: INR 1.2; Partial Thromboplastin Time 33.1 Seconds (22.3-36.8)
--- NOTE | 2024-10-06 10:58 | PCNWS ---
Weekly nutritional screen. Patient is NPO for thoracentesis today. tolerating previous heart healthy diet with adequate intake, 75-100%. No weight loss reported. No nutritional needs at this time.
[2024-10-06 12:08] LABS: Glucose Point of Care 141 mg/dl (65-105)
[2024-10-06] MEDS: SODIUM CHLORIDE 0.9% IV 250 ML 30 ML IV CONT (13:23)
[2024-10-06 14:18] LABS: Hepatitis A Antibody Total REACTIVE (NON-REACTIVE)
--- NOTE | 2024-10-06 16:40 | P.PNIM_ITS ---
Progress Note: A&P Assessment and Plan (1) Hemoptysis: Code(s): R04.2 - Hemoptysis Status: Acute (2) Pleural effusion: Code(s): J90 - Pleural effusion, not elsewhere classified Status: Acute (3) Hepatitis A: Code(s): B15.9 - Hepatitis A without hepatic coma Status: Acute Plan This is a pleasant 63-year-old male with a history of obesity, mow-vjhyonc-usxfjosmq diabetes mellitus, asthma, chronic hypertension, hyperlipidemia, history of cataract surgery at age 4 left eye now blind. Presents to [facility] on 09/29/2024 with complaint of bloody sputum. He reports presenting to an urgent care 2 days prior to admission for a cough and was diagnosed with pneumonia and prescribed antibiotics. On the day of admission in the morning he coughed up blood and motions with his fingers a small amount approximately 5 cc. Your workup demonstrated 97% O2 saturation on room air. Upon evaluation the patient was resting comfortably. WBC count 2.6, hemoglobin 11.4, platelet 34. D-dimer 2.53, serum creatinine 0.57, quad viral screen negative. CTA chest did not demonstrate PE or thoracic aortic dissection. Identifies a large right- sided pleural effusion with adjacent compressive atelectasis. Patient was given ceftriaxone and azithromycin as well as a 1 L normal saline bolus. Dr. Garcia consulted from ER due to pancytopenia. Recommended no platelet transfusion unless under 20 K. recommends trending platelet count with the hope platelets are above 50 K or we can perform thoracentesis. ----- Hematology will see in consultation. Will trend CBC. Diagnostic and therapeutic thoracentesis ordered pending repeat platelet count. His hemoptysis is small and he has not had any episodes in only reports dry cough since admission. Hemoglobin acceptable at 11.4. Possibly a parapneumonic effusion, will add metronidazole in addition to ceftriaxone and azithromycin. Effusion does not appear loculated. Accu-Cheks a.c. HS with insulin sliding scale. Restart GUIDANCE ADVISER amlodipine and lisinopril. 10/01: Evaluated by Oncologist yesterday. His pancytopenia is secondary to liver cirrhosis and worsening of thrombocytopenia could be secondary to superimposed autoimmune thrombocytopenia. Liver cirrhosis is likely secondary to obesity and fatty liver. ----- Pancytopenia: Status post 2U PLT Neutropenic precautions DC Ceftriaxone and Azithromycin Started on levofloxacin Watch for any spontaneous bleeding, NO OBVIOUS BLEEDING NOW Appreciate efficiency manager consultation, consider possible myelodysplastic syndrome, bone marrow biopsy White cell of 2.3. Afebrile, no sign of infection hemoglobin 11.7 Evaluated by Oncologist yesterday. His pancytopenia is secondary to liver cirrhosis and worsening of thrombocytopenia could be secondary to superimposed autoimmune thrombocytopenia. Liver cirrhosis is likely secondary to obesity and fatty liver. SCDs. Patient wishes to be full code. Recurrent Right Pleural Effusion -Will undergo thoracocentesis today (10/06)with pleural cytology . -Will perform CXR tomorrow(10/07) evening and if fluid reaccumulates patient will need pluerX cath. -Repeated chest CT on 10/02 shows moderate size right pleural effusion. -On 09/30 patient had a successful thoracocentesis and was drained 1 L from right pleural effusion. -Ordered repeat thoracocentesis with pleural fluid cytology -Pleural studies pending to calculate light's criteria. -Possible from liver cirrhosis -Order hepatitis panel, HbA1c and lipid panel -Reviewed echocardiogram which shows no significant finding. -No evidence of kidney disease. Hepatitis A Positive for IgM Hep A Order total Hep A antibody Needs to follow up with Lace Paper Machine Operator as OP Subjective Date/time seen: 10/06/24 16:40 Interval history: Transfused 1U platelet. Will undergo thoracocentesis today with pleural cytology . Will perform CXR tomorrow evening and if fluid reaccumulates patient will need pluerX cath. Review of Systems Review of Systems: All systems reviewed & are unremarkable except as noted in HPI and below (HPI) Exam Const: General: comfortable and no acute distress Neck: Neck: supple Resp: Effort & Inspection: normal respiratory effort Other: Diminished lung sounds right lung, scant expiratory wheeze Cardio: Rate: regular rate Rhythm: regular rhythm Heart sounds: no gallops, no murmurs and no rubs Extrem: Other: 1+ Objective Data Vital Signs Vital Signs: Vital Signs - 24 hr 10/05/24 20:00 10/05/24 20:13 10/05/24 20:13 Temperature Pulse Rate 89 Respiratory Rate 18 Blood Pressure Pulse Oximetry 95 Oxygen Delivery Room Air Room Air Fraction of Inspired Oxygen 21 10/05/24 20:21 10/05/24 22:00 10/06/24 01:57 Temperature 97.3 F L Pulse Rate 80 85 75 Respiratory Rate 18 18 18 Blood Pressure 129/67 Pulse Oximetry 99 Oxygen Delivery Fraction of Inspired Oxygen 10/06/24 02:09 10/06/24 05:28 10/06/24 08:00 Temperature 97.9 F Pulse Rate 79 86 Respiratory Rate 18 18 Blood Pressure 123/65 Pulse Oximetry 94 Oxygen Delivery Room Air Fraction of Inspired Oxygen 10/06/24 08:25 10/06/24 08:25 10/06/24 08:36 Temperature Pulse Rate 85 85 71 Respiratory Rate 20 20 20 Blood Pressure Pulse Oximetry 91 Oxygen Delivery Room Air Fraction of Inspired Oxygen 10/06/24 13:25 10/06/24 13:40 10/06/24 13:43 Temperature 98.8 F 97.7 F 97.7 F Pulse Rate 86 83 83 Respiratory Rate 18 18 18 Blood Pressure 124/73 134/75 134/75 Pulse Oximetry 100 96 96 Oxygen Delivery Fraction of Inspired Oxygen 10/06/24 14:14 10/06/24 14:14 10/06/24 14:24 Temperature Pulse Rate 84 84 87 Respiratory Rate 20 20 20 Blood Pressure Pulse Oximetry 96 Oxygen Delivery Room Air Fraction of Inspired Oxygen 10/06/24 14:43 10/06/24 15:38 Temperature 97.6 F 97.5 F L Pulse Rate 92 86 Respiratory Rate 18 20 Blood Pressure 140/66 122/56 L Pulse Oximetry 97 97 Oxygen Delivery Fraction of Inspired Oxygen Intake/Output Intake/Output: Intake & Output 10/03/24 10/04/24 10/05/24 10/06/24 23:59 23:59 23:59 23:59 Intake Total 1625 1240 2040 480 Output Total 5 Balance 1620 1240 2040 480 Meds/Results Medications: Active Medications Generic Name Dose Route Start Last Admin Trade Name Freq PRN Reason Stop Dose Admin Acetaminophen 650 mg 09/29/24 21:05 10/05/24 21:29 Acetaminophen 325 Mg Tablet PO 650 mg Q4H PRN Administration Mild Pain (1-3) or Fever Albuterol 2 puff 09/29/24 23:36 Albuterol Sulfate (*Sp) Aerosol 1 Puff INHALATION Q6HRT PRN Shortness Of Breath Albuterol/Ipratropium 3 ml 10/06/24 15:10 Ipratropium 0.5 Mg/Albuterol Sulfate 2.5 Mg Ampul.Neb 3 Ml INHALATION Q6HRT PRN Wheezing Amlodipine Besylate 5 mg 09/29/24 23:40 10/06/24 09:22 Amlodipine Besylate 5 Mg Tablet PO 5 mg DAILY AIDAN Administration Benzonatate 100 mg 09/30/24 21:34 10/05/24 09:05 Benzonatate 100 Mg Capsule PO 100 mg TID PRN Administration cough Dextrose 12.5 gm 09/29/24 23:37 Dextrose 50% 25 Gm/50 Ml Syringe IV PUSH PRN PRN Hypoglycemia Protocol Glucose 15 gm 09/29/24 23:37 Glucose Oral Gel 15 Gm Of Glucse In 37.5 Gm Tube PO PRN PRN Hypoglycemia Protocol Guaifenesin/Dextromethorphan 5 ml 09/30/24 21:24 10/05/24 21:29 Guaifenesin/Dextromethorphan 10 Ml Udc PO 5 ml Q4H PRN Administration Cough Dextrose 1,000 mls @ 100 mls/hr 09/29/24 23:37 Dextrose 5% 1,000 Ml IVPB PRN PRN Hypoglycemia Protocol Sodium Chloride 250 mls @ 30 mls/hr 10/06/24 11:12 10/06/24 13:23 Normal Saline Iv IV CONT 10/06/24 19:31 30 mls/hr .Q8H20M STA Administration Insulin Aspart 2 - 5 units 09/30/24 08:00 10/06/24 13:48 Insulin Aspart (*Bkc) 100 Units/Ml SUB-Q Not Given TIDWM AIDAN Protocol Insulin Aspart 1 - 2 units 09/30/24 21:00 10/05/24 22:18 Insulin Aspart (*Bkc) 100 Units/Ml SUB-Q Not Given HS [facility] Protocol Lisinopril 20 mg 09/30/24 09:00 10/06/24 09:22 Lisinopril 20 Mg Tablet PO 20 mg QAM AIDAN Administration Ondansetron HCl 4 mg 09/29/24 21:05 Ondansetron Inj 4 Mg/2 Ml Vial IV PUSH Q4H PRN Nausea Simvastatin 10 mg 09/29/24 23:40 10/06/24 09:22 Simvastatin 10 Mg Tablet PO 10 mg QAM AIDAN Administration Radiology Results: ITS Impressions Chest CTA 09/29/24 20:12 IMPRESSION: No pulmonary embolus. No thoracic aortic dissection. Large right-sided pleural effusion with adjacent compressive atelectasis. Abdomen Ultrasound 09/30/24 08:11 Impression: Cirrhotic liver with associated splenomegaly, as detailed above. Small amount of abdominal ascites. Thoracentesis Ultrasound 09/30/24 15:32 IMPRESSION: 1. Successful ultrasound-guided thoracentesis yielding 1000 mL of priti-colored fluid. Chest CT 10/02/24 13:39 IMPRESSION: 1. Moderate-sized right pleural effusion. 2. Cirrhosis of the liver with portal venous hypertension. 3. Small volume of ascites. Labs Labs: Laboratory Results - last 24 hr 09/30/24 10/05/24 10/05/24 20:38 07:05 17:15 WBC RBC Hgb Hct MCV MCH MCHC RDW Plt Count MPV % Immature Plt Fraction PT INR APTT Sodium Potassium Chloride Carbon Dioxide Anion Gap BUN Creatinine Estim Creat Clear Calc Estimated GFR Glucose POC Capillary Glucose 130 H Calcium Total Bilirubin AST ALT Alkaline Phosphatase Total Protein Albumin Direct Plt-Bound IgG Ab Negative Hepatitis A Ab Total Reactive A Blood Type 10/05/24 10/06/24 10/06/24 21:53 07:19 07:33 WBC 3.5 L RBC 3.95 L Hgb 11.8 L Hct 37.6 L MCV 95.2 MCH 29.9 MCHC 31.4 L RDW 14.9 H Plt Count 43 L MPV 12.1 H % Immature Plt Fraction 7.2 PT 15.0 H INR 1.2 APTT 33.1 Sodium 137 Potassium 4.3 Chloride 106 Carbon Dioxide 23 Anion Gap 8 BUN 9 Creatinine 0.59 L Estim Creat Clear Calc 141 Estimated GFR > 60 Glucose 130 H POC Capillary Glucose 199 H Calcium 8.3 L Total Bilirubin 1.3 AST 45 ALT 27 Alkaline Phosphatase 96 Total Protein 7.0 Albumin 3.3 L Direct Plt-Bound IgG Ab Hepatitis A Ab Total Blood Type 10/06/24 10/06/24 10/06/24 08:04 11:33 12:03 WBC RBC Hgb Hct MCV MCH MCHC RDW Plt Count MPV % Immature Plt Fraction PT INR APTT Sodium Potassium Chloride Carbon Dioxide Anion Gap BUN Creatinine Estim Creat Clear Calc Estimated GFR Glucose POC Capillary Glucose 141 H 141 H Calcium Total Bilirubin AST ALT Alkaline Phosphatase Total Protein Albumin Direct Plt-Bound IgG Ab Hepatitis A Ab Total Blood Type A Positive Hospitalist MIPS Advance Care Plan I have confirmed that the patient's Advanced Care Plan is present, code status is documented, or surrogate decision maker is listed in patient medical record.: Yes Medication Reconciliation I have utilized all available resources to obtain, update and review the patients current medications (includes all prescriptions, OTC, herbals, cannabis, and nutritional supplements).: Yes
[2024-10-06 17:07] LABS: Glucose Point of Care 121 mg/dl (65-105)
[2024-10-06] MEDS: guaiFENesin/DEXTROMETHORPHAN 10 ML UDC 5 ML PO ×2 (17:08→20:44)
[2024-10-06] MEDS: ACETAMINOPHEN 325 MG TABLET 650 MG PO (20:44)
[2024-10-06] MEDS: INSULIN ASPART (*BKC) 100 UNITS/ML SUB-Q (20:44)
[2024-10-06 20:53] LABS: Glucose Point of Care 241 mg/dl (65-105)
[2024-10-07 05:42] VITALS: BP 122/65; PULSE 73; RESP 12; TEMP 36.4; O2SAT 96
[2024-10-07] MEDS: guaiFENesin/DEXTROMETHORPHAN 10 ML UDC 5 ML PO ×3 (06:23→22:10)
[2024-10-07] MEDS: ACETAMINOPHEN 325 MG TABLET 650 MG PO ×3 (06:23→22:09)
[2024-10-07 07:24] LABS: Hemoglobin 12.2 g/dL (14.0-18.0); Immature Platelet Fraction Pct 6.1 % (0.9-11.2); Mean Corpuscular HGB Conc 32.1 g/dl (32-36); Mean Corpuscular Hemoglobin 29.8 pg (26-34); Mean Corpuscular Volume 92.9 fl (80-100); Platelet Count Result 58 k/mm3 (150-375); Red Blood Count 4.09 M/mm3 (4.6-6.20); Red Cell Distribution Width 14.9 % (11.5-14.5); White Blood Count 5.1 K/mm3 (4.5-10.0)
[2024-10-07 07:46] LABS: Alanine Aminotransferase 27 U/L (6-50); Albumin Level 3.4 g/dL (3.5-5.1); Alkaline Phosphatase 107 U/L (38-126); Anion Gap 8 mmol/L (4-12); Aspartate Amino Transferase 40 U/L (17-59); Bilirubin,Total 1.5 mg/dL (0.2-1.3); Blood Urea Nitrogen 10 mg/dL (9-20); Calcium 8.6 mg/dL (8.4-10.2); Carbon Dioxide 24 mmol/L (22-30); Chloride 105 mmol/L (98-107); Estimated CRCL calculation 137 ml/min; Estimated Glomerular Filt Rate > 60; Glucose 146 mg/dL (65-110); Potassium 4.2 mmol/L (3.4-5.0); Sodium 137 mmol/L (137-145)
[2024-10-07] MEDS: amLODIPine BESYLATE 5 MG TABLET PO (08:05)
[2024-10-07] MEDS: SIMVASTATIN 10 MG TABLET PO (08:05)
[2024-10-07] MEDS: lisinopriL 20 MG TABLET PO (08:05)
[2024-10-07] MEDS: ONDANSETRON INJ 4 MG/2 ML VIAL IV PUSH (08:10)
[2024-10-07 08:33] LABS: Glucose Point of Care 151 mg/dl (65-105)
[2024-10-07 11:59] LABS: Glucose Point of Care 226 mg/dl (65-105)
[2024-10-07] MEDS: INSULIN ASPART (*BKC) 100 UNITS/ML SUB-Q (12:12)
[2024-10-07 13:25] VITALS: BP 119/62; PULSE 91; RESP 19; O2SAT 95
--- NOTE | 2024-10-07 15:30 | PM.IMPN ---
Progress Note: A&P Assessment and Plan (1) Hemoptysis: Code(s): R04.2 - Hemoptysis Status: Acute (2) Pleural effusion: Code(s): J90 - Pleural effusion, not elsewhere classified Status: Acute (3) Hepatitis A: Code(s): B15.9 - Hepatitis A without hepatic coma Status: Acute Plan This is a pleasant 63-year-old male with a history of obesity, orm-rnpnyak-gmxjrumhq diabetes mellitus, asthma, chronic hypertension, hyperlipidemia, history of cataract surgery at age 4 left eye now blind. Presents to [place] ER on 09/29/2024 with complaint of bloody sputum. He reports presenting to an urgent care 2 days prior to admission for a cough and was diagnosed with pneumonia and prescribed antibiotics. On the day of admission in the morning he coughed up blood and motions with his fingers a small amount approximately 5 cc. Your workup demonstrated 97% O2 saturation on room air. Upon evaluation the patient was resting comfortably. WBC count 2.6, hemoglobin 11.4, platelet 34. D-dimer 2.53, serum creatinine 0.57, quad viral screen negative. CTA chest did not demonstrate PE or thoracic aortic dissection. Identifies a large right-sided pleural effusion with adjacent compressive atelectasis. Patient was given ceftriaxone and azithromycin as well as a 1 L normal saline bolus. Dr. Garcia consulted from ER due to pancytopenia. Recommended no platelet transfusion unless under 20 K. recommends trending platelet count with the hope platelets are above 50 K or we can perform thoracentesis. ----- Hematology will see in consultation. Will trend CBC. Diagnostic and therapeutic thoracentesis ordered pending repeat platelet count. His hemoptysis is small and he has not had any episodes in only reports dry cough since admission. Hemoglobin acceptable at 11.4. Possibly a parapneumonic effusion, will add metronidazole in addition to ceftriaxone and azithromycin. Effusion does not appear loculated. Accu-Cheks a.c. HS with insulin sliding scale. 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 10/01: Evaluated by Oncologist yesterday. His pancytopenia is secondary to liver cirrhosis and worsening of thrombocytopenia could be secondary to superimposed autoimmune thrombocytopenia. Liver cirrhosis is likely secondary to obesity and fatty liver. ----- Pancytopenia: Status post 2U PLT Neutropenic precautions DC Ceftriaxone and Azithromycin Started on levofloxacin Watch for any spontaneous bleeding, NO OBVIOUS BLEEDING NOW Appreciate sorting cows worker consultation, consider possible myelodysplastic syndrome, bone marrow biopsy White cell of 2.3. Afebrile, no sign of infection hemoglobin 11.7 Evaluated by Oncologist yesterday. His pancytopenia is secondary to liver cirrhosis and worsening of thrombocytopenia could be secondary to superimposed autoimmune thrombocytopenia. Liver cirrhosis is likely secondary to obesity and fatty liver. SCDs. Patient wishes to be full code. Recurrent Right Pleural Effusion -Will undergo thoracocentesis today (10/06)with pleural cytology . -Will perform CXR tomorrow(10/07) evening and if fluid reaccumulates patient will need pluerX cath. -Repeated chest CT on 10/02 shows moderate size right pleural effusion. -On 09/30 patient had a successful thoracocentesis and was drained 1 L from right pleural effusion. -Ordered repeat thoracocentesis with pleural fluid cytology -Pleural studies pending to calculate light's criteria. -Possible from liver cirrhosis -Order hepatitis panel, HbA1c and lipid panel -Reviewed echocardiogram which shows no significant finding. s/p thoracentesis on 10/06 awaiting pleural fluid studies Hepatitis A Positive for IgM Hep A Order total Hep A antibody Needs to follow up with Rotary Shear Worker Helper as OP DVT prophylaxis on SCds Subjective Date/time seen: 10/07/24 15:30 Interval history: s/p Thoracentesis awaiting fluid studies for discharge palnning Review of Systems Review of Systems: All systems reviewed & are unremarkable except as noted in HPI and below (HPI) Exam Const: General: comfortable and no acute distress Neck: Neck: supple Resp: Effort & Inspection: normal respiratory effort Other: Diminished lung sounds right lung, scant expiratory wheeze Cardio: Rate: regular rate Rhythm: regular rhythm Heart sounds: no gallops, no murmurs and no rubs Extrem: Other: 1+ Objective Data Vital Signs Vital Signs: Vital Signs - 24 hr 10/06/24 15:38 10/06/24 20:00 10/06/24 22:00 Temperature 97.5 F L 98.5 F Pulse Rate 86 91 Respiratory Rate 20 14 Blood Pressure 122/56 L 137/66 Pulse Oximetry 97 96 Oxygen Delivery Room Air 10/07/24 05:42 10/07/24 08:00 10/07/24 13:25 Temperature 97.6 F Pulse Rate 73 91 Respiratory Rate 12 19 Blood Pressure 122/65 119/62 Pulse Oximetry 96 95 Oxygen Delivery Room Air Intake/Output Intake/Output: Intake & Output 10/04/24 10/05/24 10/06/24 10/07/24 23:59 23:59 23:59 23:59 Intake Total 1240 2040 1220 1540 Output Total 500 Balance 1240 2040 720 1540 Meds/Results Medications: Active Medications Generic Name Dose Route Start Last Admin Trade Name Freq PRN Reason Stop Dose Admin Acetaminophen 650 mg 09/29/24 21:05 10/07/24 14:19 Acetaminophen 325 Mg Tablet PO 650 mg Q4H PRN Administration Mild Pain (1-3) or Fever Albuterol 2 puff 09/29/24 23:36 Albuterol Sulfate (*Sp) Aerosol 1 Puff INHALATION Q6HRT PRN Shortness Of Breath Albuterol/Ipratropium 3 ml 10/06/24 15:10 Ipratropium 0.5 Mg/Albuterol Sulfate 2.5 Mg Ampul.Neb 3 Ml INHALATION Q6HRT PRN Wheezing Amlodipine Besylate 5 mg 09/29/24 23:40 10/07/24 08:05 Amlodipine Besylate 5 Mg Tablet PO 5 mg DAILY AIDAN Administration Benzonatate 100 mg 09/30/24 21:34 10/05/24 09:05 Benzonatate 100 Mg Capsule PO 100 mg TID PRN Administration cough Dextrose 12.5 gm 09/29/24 23:37 Dextrose 50% 25 Gm/50 Ml Syringe IV PUSH PRN PRN Hypoglycemia Protocol Glucose 15 gm 09/29/24 23:37 Glucose Oral Gel 15 Gm Of Glucse In 37.5 Gm Tube PO PRN PRN Hypoglycemia Protocol Guaifenesin/Dextromethorphan 5 ml 09/30/24 21:24 10/07/24 14:22 Guaifenesin/Dextromethorphan 10 Ml Udc PO 5 ml Q4H PRN Administration Cough Dextrose 1,000 mls @ 100 mls/hr 09/29/24 23:37 Dextrose 5% 1,000 Ml IVPB PRN PRN Hypoglycemia Protocol Insulin Aspart 2 - 5 units 09/30/24 08:00 10/07/24 12:12 Insulin Aspart (*Bkc) 100 Units/Ml SUB-Q 2 units TIDWM AIDAN Administration Protocol Insulin Aspart 1 - 2 units 09/30/24 21:00 10/06/24 20:44 Insulin Aspart (*Bkc) 100 Units/Ml SUB-Q 1 units HS AIDAN Administration Protocol Lisinopril 20 mg 09/30/24 09:00 10/07/24 08:05 Lisinopril 20 Mg Tablet PO 20 mg QAM AIDAN Administration Ondansetron HCl 4 mg 09/29/24 21:05 10/07/24 08:10 Ondansetron Inj 4 Mg/2 Ml Vial IV PUSH 4 mg Q4H PRN Administration Nausea Simvastatin 10 mg 09/29/24 23:40 10/07/24 08:05 Simvastatin 10 Mg Tablet PO 10 mg QAM AIDAN Administration Radiology Results: ITS Impressions Chest CTA 09/29/24 20:12 IMPRESSION: No pulmonary embolus. No thoracic aortic dissection. Large right-sided pleural effusion with adjacent compressive atelectasis. Abdomen Ultrasound 09/30/24 08:11 Impression: Cirrhotic liver with associated splenomegaly, as detailed above. Small amount of abdominal ascites. Chest CT 10/02/24 13:39 IMPRESSION: 1. Moderate-sized right pleural effusion. 2. Cirrhosis of the liver with portal venous hypertension. 3. Small volume of ascites. Thoracentesis Ultrasound 10/06/24 17:20 IMPRESSION: 1. Successful ultrasound-guided thoracentesis yielding 500 mL of priti-colored fluid. Chest X-Ray 10/07/24 06:32 Impression: Possible minimal right pleural effusion, unchanged. Labs Labs: Laboratory Results - last 24 hr 10/06/24 10/06/24 10/07/24 17:04 20:01 07:00 WBC 5.1 RBC 4.09 L Hgb 12.2 L Hct 38.0 L MCV 92.9 MCH 29.8 MCHC 32.1 RDW 14.9 H Plt Count 58 L MPV 12.0 H % Immature Plt Fraction 6.1 Sodium 137 Potassium 4.2 Chloride 105 Carbon Dioxide 24 Anion Gap 8 BUN 10 Creatinine 0.61 L Estim Creat Clear Calc 137 Estimated GFR > 60 Glucose 146 H POC Capillary Glucose 121 H 241 H Calcium 8.6 Total Bilirubin 1.5 H AST 40 ALT 27 Alkaline Phosphatase 107 Total Protein 7.0 Albumin 3.4 L 10/07/24 10/07/24 08:17 11:51 WBC RBC Hgb Hct MCV MCH MCHC RDW Plt Count MPV % Immature Plt Fraction Sodium Potassium Chloride Carbon Dioxide Anion Gap BUN Creatinine Estim Creat Clear Calc Estimated GFR Glucose POC Capillary Glucose 151 H 226 H Calcium Total Bilirubin AST ALT Alkaline Phosphatase Total Protein Albumin
[2024-10-07 16:45] LABS: Lactate Dehydrogenase 195 U/L (120-246)
[2024-10-07 17:13] LABS: Hepatitis B DNA PCR NOT DETECTED (NOT DETECTED); Hepatitis B DNA PCR NOT DETECTED Log IU/mL (NOT DETECTED)
[2024-10-07 17:13] LABS: Glucose Point of Care 130 mg/dl (65-105)
[2024-10-07 21:05] VITALS: BP 118/82; PULSE 81; RESP 18; TEMP 37.4; O2SAT 96
[2024-10-07 22:16] LABS: Glucose Point of Care 143 mg/dl (65-105)
[2024-10-08 04:45] VITALS: BP 115/62; PULSE 77; RESP 18; TEMP 36.8; O2SAT 93
[2024-10-08 07:50] LABS: Glucose Point of Care 150 mg/dl (65-105)
[2024-10-08] MEDS: guaiFENesin/DEXTROMETHORPHAN 10 ML UDC 5 ML PO (08:59)
[2024-10-08] MEDS: SIMVASTATIN 10 MG TABLET PO (09:00)
[2024-10-08] MEDS: ACETAMINOPHEN 325 MG TABLET 650 MG PO (09:00)
[2024-10-08] MEDS: amLODIPine BESYLATE 5 MG TABLET PO (09:00)
[2024-10-08] MEDS: lisinopriL 20 MG TABLET PO (09:00)
[2024-10-08 09:06] LABS: Basophils Absolute Auto 0.1 K/mm3 (0.0-0.1); Eosinophils Absolute Auto 0.1 K/mm3 (0-0.3); Eosinophils Percent Auto 2.3 % (0-4.4); Hematocrit 40.4 % (42.0-52.0); Hemoglobin 12.7 g/dL (14.0-18.0); Immature Granulocyte Absolute 0.01 K/mm3 (0.00-0.031); Immature Granulocyte Percent A 0.2 % (0-0.5); Immature Platelet Fraction Pct 7.4 % (0.9-11.2); Mean Corpuscular HGB Conc 31.4 g/dl (32-36); Mean Corpuscular Hemoglobin 29.7 pg (26-34); Mean Corpuscular Volume 94.6 fl (80-100); Mean Platelet Volume 12.3 fl (7.4-10.4); Monocytes Absolute Auto 0.7 K/mm3 (0.1-0.6); Monocytes Percent Auto 11.5 % (2.6-8.5); Neutrophils Absolute Auto 3.8 K/mm3 (1.3-6.7); Platelet Count Result 63 k/mm3 (150-375); Red Blood Count 4.27 M/mm3 (4.6-6.20); Red Cell Distribution Width 15.2 % (11.5-14.5); White Blood Count 6.1 K/mm3 (4.5-10.0)
[2024-10-08 09:16] LABS: Alanine Aminotransferase 27 U/L (6-50); Albumin Level 3.6 g/dL (3.5-5.1); Alkaline Phosphatase 115 U/L (38-126); Anion Gap 8 mmol/L (4-12); Aspartate Amino Transferase 42 U/L (17-59); Bilirubin,Total 1.4 mg/dL (0.2-1.3); Blood Urea Nitrogen 13 mg/dL (9-20); Calcium 8.9 mg/dL (8.4-10.2); Carbon Dioxide 26 mmol/L (22-30); Chloride 103 mmol/L (98-107); Estimated CRCL calculation 119 ml/min; Estimated Glomerular Filt Rate > 60; Glucose 145 mg/dL (65-110); Potassium 4.4 mmol/L (3.4-5.0); Sodium 137 mmol/L (137-145)
[2024-10-08 09:36] LABS: Large Platelets Present; Platelet Estimate Decreased (Adequate); Schistocytes None Seen
[2024-10-08 11:36] LABS: Glucose Point of Care 210 mg/dl (65-105)
[2024-10-08] MEDS: INSULIN ASPART (*BKC) 100 UNITS/ML SUB-Q (12:04)
--- NOTE | 2024-10-08 12:31 | PM.DS ---
DS: Admitting Diagnosis Discharge Date 10/08/24 Admitting Diagnosis bloody sputum DS: Discharge Diagnosis Discharge Diagnosis (1) Pancytopenia: Code(s): D61.818 - Other pancytopenia Status: Acute (2) Pleural effusion on right: Code(s): J90 - Pleural effusion, not elsewhere classified Status: Acute (3) Hemoptysis: Code(s): R04.2 - Hemoptysis Status: Acute DS: Summary Hospital Course Hospital Course: This is a pleasant 63-year-old male with a history of obesity, rea-xgjbehw-ljimfbbny diabetes mellitus, asthma, chronic hypertension, hyperlipidemia, history of cataract surgery at age 4 left eye now blind. Presents to [facility] on 09/29/2024 with complaint of bloody sputum. He reports presenting to an urgent care 2 days prior to admission for a cough and was diagnosed with pneumonia and prescribed antibiotics. On the day of admission in the morning he coughed up blood and motions with his fingers a small amount approximately 5 cc. Your workup demonstrated 97% O2 saturation on room air. Upon evaluation the patient was resting comfortably. WBC count 2.6, hemoglobin 11.4, platelet 34. D-dimer 2.53, serum creatinine 0.57, quad viral screen negative. CTA chest did not demonstrate PE or thoracic aortic dissection. Identifies a large right-sided pleural effusion with adjacent compressive atelectasis. Patient underwent thoracentesis after platelets improved to above 50, and repeat CXR showed improvement in pleural effusion. Patient underwent another thoracentesis on 10/06 however pleural fluid studies is a send out labs thus it is unknown when the reports will turn around. Hemoptysis has since resolved. patient will follow up with hematology for pleural fluid studies report. However given liver cirrhosis diagnosed with US liver this admission patient was tentatively placed on Lasix 20mg and Spironolactone 50mg daily. Will continue follow up with PCP for further adjustments Patient was also seen by Hematology for pancytopenia, WBC, Hb and Platelets continued to improve. today Plts 63, WBC 6.3 and Hb 12.7. However patient does have iron deficiency, Isat 14 and Ferritin 21.4. Discharged on PO Iron and will follow up with Hematology as instructed Liver cirrhosis, US abd showed liver cirrhosis and splenomegaly and small ascites, which may be the cause of pleural effusion however pleural fluid studies pending. Hepatitis A positive but his is not a cause of chronic liver disease Discharged on Lasix and Spironolactone Hemoptysis resolved. F/u with PCP in 3-5 days F/u with Hematology as instructed F/u with GI referral Time Spent with Patient Time attestation: Total time spent providing and/or coordinating discharge services: DS: Data Data Completed and Pending Completed studies during hospitalization: Pending at discharge 10/02/24 16:24 Cytology [PTH] Routine 10/06/24 15:44 Cytology [PTH] Routine Labs on day of discharge: Labs from last 24 hours 10/08/24 10/08/24 10/08/24 11:24 08:09 07:41 WBC 6.1 RBC 4.27 L Hgb 12.7 L Hct 40.4 L MCV 94.6 MCH 29.7 MCHC 31.4 L RDW 15.2 H Plt Count 63 L MPV 12.3 H Immature Gran % (Auto) 0.2 Neut % (Auto) 62.0 Lymph % (Auto) 23.0 [place] % (Auto) 11.5 H Eos % (Auto) 2.3 Baso % (Auto) 1.0 Lymph # (Auto) 1.40 [place] # (Auto) 0.7 H Eos # (Auto) 0.1 Baso # (Auto) 0.1 Abs Immat Gran (auto) 0.01 Absolute Neuts (auto) 3.8 Absolute Nucleated RBC 0.000 Band Neutrophils % Not Reportable Nucleated RBC % 0.0 Platelet Estimate Decreased Large Platelets Present % Immature Plt Fraction 7.4 Schistocytes None seen Sodium 137 Potassium 4.4 Chloride 103 Carbon Dioxide 26 Anion Gap 8 BUN 13 Creatinine 0.71 Estim Creat Clear Calc 119 Estimated GFR > 60 Glucose 145 H POC Capillary Glucose 210 H 150 H Calcium 8.9 Magnesium 2.0 Total Bilirubin 1.4 H AST 42 ALT 27 Alkaline Phosphatase 115 Lactate Dehydrogenase Total Protein 7.0 Albumin 3.6 Pleural Total Protein Pleural LDH Pleural Glucose HepB DNA PCR UltraQnt Units/mL Hep B DNA Qnt log IU/mL 10/07/24 10/07/24 10/07/24 21:06 17:06 16:43 WBC RBC Hgb Hct MCV MCH MCHC RDW Plt Count MPV Immature Gran % (Auto) Neut % (Auto) Lymph % (Auto) [place] % (Auto) Eos % (Auto) Baso % (Auto) Lymph # (Auto) [place] # (Auto) Eos # (Auto) Baso # (Auto) Abs Immat Gran (auto) Absolute Neuts (auto) Absolute Nucleated RBC Band Neutrophils % Nucleated RBC % Platelet Estimate Large Platelets % Immature Plt Fraction Schistocytes Sodium Potassium Chloride Carbon Dioxide Anion Gap BUN Creatinine Estim Creat Clear Calc Estimated GFR Glucose POC Capillary Glucose 143 H 130 H Calcium Magnesium Total Bilirubin AST ALT Alkaline Phosphatase Lactate Dehydrogenase Total Protein Albumin Pleural Total Protein Pending Pleural LDH Pending Pleural Glucose Pending HepB DNA PCR UltraQnt Units/mL Hep B DNA Qnt log IU/mL 10/07/24 10/04/24 06:56 06:49 WBC RBC Hgb Hct MCV MCH MCHC RDW Plt Count MPV Immature Gran % (Auto) Neut % (Auto) Lymph % (Auto) [place] % (Auto) Eos % (Auto) Baso % (Auto) Lymph # (Auto) [place] # (Auto) Eos # (Auto) Baso # (Auto) Abs Immat Gran (auto) Absolute Neuts (auto) Absolute Nucleated RBC Band Neutrophils % Nucleated RBC % Platelet Estimate Large Platelets % Immature Plt Fraction Schistocytes Sodium Potassium Chloride Carbon Dioxide Anion Gap BUN Creatinine Estim Creat Clear Calc Estimated GFR Glucose POC Capillary Glucose Calcium Magnesium Total Bilirubin AST ALT Alkaline Phosphatase Lactate Dehydrogenase 195 Total Protein Albumin Pleural Total Protein Pleural LDH Pleural Glucose HepB DNA PCR UltraQnt Units/mL Not detected Hep B DNA Qnt log IU/mL Not detected Discharge Plan Discharge Attending physician on discharge: Tania Jeff Consulting providers: Mookie Garcia; Dalton Gordillo Discharging Clinician: Tania Jeff Anticipated Discharge Date/Time: 10/08/24 12:15 Patient Disposition: Home, Self-Care Activity: as tolerated Diet: as tolerated and low sodium Discharge Instructions: F/u with oncology for pancytopenia and pleural fluid studies Patient Instructions: Antibiotic Form Patient Language: Ecuadorean Stand Alone Forms: General Discharge Information Follow-up/Referrals: Mookie Garcia MD [Physician] - (F/u with oncology for pleural fluid studies report and pancytopenia ) Dalton Oliva MD [Primary Care Provider] - (F/u with PCP in 3-5 days ) Gucci Dobbins MD [Physician] - (referral in 2 weeks for liver cirrhosis ) Discharge Medications: New furosemide [Lasix] 20 mg tablet 20 mg PO DAILY Qty: 30 0RF ferrous sulfate 325 mg (65 mg iron) tablet 325 mg PO DAILY 30 Days Qty: 30 1RF spironolactone 50 mg tablet 50 mg PO DAILY Qty: 30 0RF Continued Rybelsus 14 mg tablet 14 mg PO DAILY 90 Days Qty: 90 2RF nystatin 100,000 unit/gram cream 1 applic topical TID Qty: 30 4RF doxycycline hyclate 100 mg capsule 100 mg PO Q12H prednisone 50 mg tablet 50 mg PO DAILY simvastatin 10 mg tablet See Rx Instructions .ROUTE .COMPLEX Qty: 90 2RF Dose Instruction: Take 1 tablet by mouth once daily Rx Instructions: Take 1 tablet by mouth once daily lisinopril 20 mg tablet See Rx Instructions .ROUTE .COMPLEX Qty: 90 2RF Dose Instruction: Take 1 tablet by mouth once daily Rx Instructions: Take 1 tablet by mouth once daily albuterol sulfate 90 mcg/actuation HFA aerosol inhaler See Rx Instructions .ROUTE .COMPLEX Qty: 25.5 2RF Dose Instruction: INHALE 2 PUFFS BY MOUTH EVERY 4 TO 6 HOURS NEEDED Rx Instructions: INHALE 2 PUFFS BY MOUTH EVERY 4 TO 6 HOURS NEEDED glimepiride 4 mg tablet See Rx Instructions .ROUTE .COMPLEX Qty: 90 2RF Dose Instruction: Take 1 tablet by mouth once daily Rx Instructions: Take 1 tablet by mouth once daily metformin 1,000 mg tablet See Rx Instructions .ROUTE .COMPLEX Qty: 180 2RF Dose Instruction: TAKE 1 TABLET BY MOUTH TWICE DAILY WITH MORNING MEAL AND WITH EVENING MEAL Rx Instructions: TAKE 1 TABLET BY MOUTH TWICE DAILY WITH MORNING MEAL AND WITH EVENING MEAL amlodipine 5 mg tablet See Rx Instructions .ROUTE .COMPLEX Qty: 90 2RF Dose Instruction: Take 1 tablet by mouth once daily Rx Instructions: Take 1 tablet by mouth once daily Date of admission: 09/29/24 21:05 Primary Care Provider: Dalton Oliva Admitting Provider: Lida Allison Attending physician on admission: Lida Allison Condition: Stable
[2024-10-12 12:44] LABS: Albumin Pleural Fluid 1.1 g/dL; Glucose Pleural Fluid 155 mg/dL; LDH Pleural Fluid 84 U/L; Total Protein Pleural Fluid <3.0 g/dL
[2024-10-12 12:53] LABS: Glucose Pleural Fluid 157 mg/dL; LDH Pleural Fluid 59 U/L; Total Protein Pleural Fluid <3.0 g/dL
== END 2024-10-08 13:59 | disposition home or self-care (01) | DRG 808 ==
LOC: ANHED 21:16 → ANH3MEDSUR 21:57
PROVIDERS: General Practice; Internal Medicine Hematology & Oncology; Internal Medicine Pulmonary Disease; Physician Assistant; Admitting Provider General Practice; Emergency Provider Student in an Organized Health Care Education/Training Program; PCP Emergency Medicine; Visit Provider Internal Medicine
DX: D61.818 Other pancytopenia (principal); J18.9 Pneumonia, unspecified organism; B15.9 Hepatitis A without hepatic coma; R04.2 Hemoptysis; J91.8 Pleural effusion in other conditions classified elsewhere; K74.60 Unspecified cirrhosis of liver; E66.9 Obesity, unspecified; E78.5 Hyperlipidemia, unspecified; M35.9 Systemic involvement of connective tissue, unspecified; D69.59 Other secondary thrombocytopenia; I10 Essential (primary) hypertension; E11.9 Type 2 diabetes mellitus without complications; J45.909 Unspecified asthma, uncomplicated; Z68.35 Body mass index [BMI] 35.0-35.9, adult
CPT/HCPCS: 32555; 36415; 36430; 71045; 71046; 71250; 71275; 76705; 80048; 80053; 80061; 80074; 82042; 82274; 82607; 82728; 82746; 82945; 82948; 83036; 83540; 83550; 83615; 83735; 83986; 84155; 84157; 84439; 84443; 84484; 85025; 85027; 85049; 85055; 85380; 85610; 85730; 86023; 86704; 86705; 86706; 86707; 86708; 86900; 86901; 87070; 87075; 87205; 87340; 87350; 87517; 87637; 88108; 88305; 88342; 89051; 93005; 94640; 96365; 96368; 96375; 99285; A9270; C8929; J0456; J0696; J1815; J1836; J2405; J7050; J7120; P9034; Q9957; Q9967

== ENCOUNTER 2024-11-20 15:29 | Outpatient (CLI) | payer MEDICARE, SELFPAY ==
--- OUTSIDE RECORDS SUMMARY | 2024-11-20 15:42 | XMS_ITS | Referral Summary ---
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 CLOTH DYER Gender Identity Not on file Sexual Orientation Not on file Last Filed Vital Signs Vital Sign Reading Time Taken Comments Blood Pressure 128/80 09/25/2017 2:05 PM CLOTH DYER Pulse 77 09/25/2017 2:05 PM CLOTH DYER Temperature - - Respiratory Rate - - Oxygen Saturation 96% 09/25/2017 2:05 PM CLOTH DYER Inhaled Oxygen Concentration - - Weight 118.8 kg (262 lb) 09/25/2017 2:05 PM CLOTH DYER Height 180.3 cm (5' 11 ) 09/25/2017 2:05 PM CLOTH DYER Body Mass Index 36.54 09/25/2017 2:05 PM CLOTH DYER Plan of Treatment Not on file [place] [address] [place] [address] Care Teams Qa Test Lead Relationship Specialty Start Date End Date Dalton Oliva MD [address] [facility] [place] [address] [facility] - General 09/03/13
--- OUTSIDE RECORDS SUMMARY | 2024-11-20 15:42 | XMS_ITS | Clinical Summary ---
Author Organization [facility] Rubnia goldstein [place] Address [address] [place] [address] Care Team Providers Care Controller Instructor Name Role Phone Unavailable Primary Care Provider Unavailabl e Allergies Active Allergy Reactions Criticality Noted Date Comments Penicillins Unknown 09/25/2017 Medications SITagliptin phosphate (JANUVIA) 50 mg Tablet Take 50 mg by mouth daily. Active simvastatin (ZOCOR) 10 mg tablet Take 10 mg by mouth daily at bedtime. Active predniSONE (DELTASONE) 50 mg tablet Take 1 Tablet by mouth daily. 5 Active nystatin (MYCOSTATIN) 100,000 unit/mL suspension SWISH & SWALLOW 1 ML ONCE DAILY Active metFORMIN (GLUCOPHAGE) 1,000 mg tablet take 1 tablet by mouth twice daily with morning meal and with evening meal Active lisinopriL (PRINIVIL) 20 mg tablet Take 20 mg by mouth daily. Active glimepiride (AMARYL) 4 mg tablet Take 4 mg by mouth daily. Active FeroSuL 325 mg (65 mg iron) tablet Take 1 Tablet by mouth daily. 5 Active doxycycline hyclate (VIBRAMYCIN) 100 mg capsule Take 1 Capsule by mouth 2 times daily. 5 Active albuterol sulfate HFA 90 mcg/actuation aerosol inhaler by See Admin Instructions route see administration instructions. Active Active Problems No known active problems Encounters Date Type Department Care Team Description 11/20/2024 3:00 PM CDT Office Visit [facility] Oncology and H[facility]ology - [place] [address] [place] [address] Mookie Garcia MD Chronic anemia (Primary Dx) from Last 3 Months Family History Medical History Relation Name Comments No Known Problems Brother No Known Problems Father No Known Problems Mother Diabetes Sister 1 Diabetes Sister 2 Diabetes Sister 3 Relation Name Status Comments Brother Alive Father Mother Sister 1 Alive Sister 2 Alive Sister 3 Alive Social History Tobacco Use Types Packs/Day Years Used Date Smoking Tobacco: Never Smokeless Tobacco: Never Alcohol Use Standard Drinks/Week Comments Yes 0 (1 standard drink = 0.6 oz pur e alcohol) Occasionally Sex and Gender Information Value Date Recorded Sex Assigned at Not on file 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 Gender Identity Not on file Sexual Orientation Not on file Last Filed Vital Signs Vital Sign Reading Time Taken Comments Blood Pressure 133/73 11/20/2024 2:50 PM CDT Pulse 79 11/20/2024 2:50 PM CDT Temperature 36.4 C (97.5 F) 11/20/2024 2:50 PM CDT Respiratory Rate 16 11/20/2024 2:50 PM CDT Oxygen Saturation - - Inhaled Oxygen Concentration - - Weight 107 kg (235 lb 12.8 oz) 11/20/2024 2:50 P M CDT Height 180.3 cm (5' 11 ) 11/20/2024 2:50 PM CDT Body Mass Index 32.89 11/20/2024 2:50 PM CDT Plan of Treatment Upcoming Encounters Date Type Department Care Team (Late st Contact Info) Description 12/04/2024 4:00 PM CDT Telephone Check Up [facility] - [place] [address] [facility] [address] [place] [address] Mookie Garcia MD [address] [place] [address] Health Maintenance Due Date Last Done Comments Pre-Diabetes and Diabetes Screening 1960 DTAP/TDAP/TD VACCINES (1 - Tdap) 1979 Traditional Medicare (ACO) Annual Wellness Visit 10/10 COLORECTAL SCREENING 2005 Colorectal Cancer Screening 2005 FIT-DNA Q 3 years 2005 FIT/FOBT Q 1 year 2005 Flex Sig/CT Colonography Q 5 years 2005 ZOSTER VACCINE (1 of 2) 2010 INFLUENZA VACCINE (#1) 2024 RSV VACCINE (60+ or ) (1 - 1-dose 75+ series) 2035 [place] [address] MEDICARE PART A AND B
--- OUTSIDE RECORDS SUMMARY | 2024-11-20 15:42 | XMS_ITS | Encounter Summary ---
Author Organization [facility] Address [address] [place] [address] Care Team Providers Care Chief Airline Radio Operator Name Role Phone Unavailable Primary Care Provider Unavailabl e Encounter Details Date Type Department Care Team (Late Contact Info) Description 11/20/2024 3:00 PM CDT Office Visit [facility] Oncology and Hematology - [place] [address] [facility] [address] [place] [address] Mookie Garcia MD [address] [place] [address] Chronic anemia (Primary Dx) Social History Tobacco Use Types Packs/Day Years Used Date Smoking Tobacco: Never Smokeless Tobacco: Never Alcohol Use Standard Drinks/Week Comments Yes 0 (1 standard drink = 0.6 oz pur e alcohol) Occasionally Sex and Gender Information Value Date Recorded Sex Assigned at Not on file 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 Gender Identity Not on file Sexual Orientation Not on file documented as of this encounter Last Filed Vital Signs Vital Sign Reading [...] Mass Index 32.89 11/20/2024 2:50 PM CDT documented in this encounter Plan of Treatment Upcoming Encounters Date Type Department Care Team (Late st Contact Info) Description 12/04/2024 4:00 PM CDT Telephone Check Up [facility] Oncology and Hematology - [place] [address] [address] [place] [address] Mookie Garcia MD [address] [place] [address] Scheduled Orders Name Type Priority Associated Diagnoses Orde r Schedule CBC WITH DIFFERENTIAL Lab Stat Chronic anemia Expected: 11/20/2024, Expires: 11/20/2025 COMPREHENSIVE METABOLIC PANEL Lab Stat Chronic anemia Expected: 11/20/2024, Expires: 11/20/2025 FERRITIN Lab Routine Chronic anemia Expected: 11/20/2024, Expires: 11/20/2025 IRON, TIBC, AND PERCENT SATURATION Lab Routine Chronic anemia Expected: 11/20/2024, Expires: 11/20/2025 TRANSFERRIN RECEPTOR TFR SOLUBLE Lab Routine Chronic anemia Expected: 11/20/2024, Expires: 11/20/2025 documented as of this encounter Visit Diagnoses Diagnosis Chronic anemia- Primary Anemia, unspecified documented in this encounter
--- OUTSIDE RECORDS SUMMARY | 2024-11-20 15:42 | XMS_ITS | Clinical Summary ---
Author Organization [facility] [address] Address [address] [place] [address] Care Team Providers Care Warehouse Engineer Name Role Phone Dalton Oliva MD Primary [...] on file Legal Sex Male 3:09 AM PROPERTY VALUER Gender Identity Not on file Sexual Orientation Not on file Obstetrics History Last Filed Vital Signs Vital Sign Reading Time Taken Comments Blood Pressure 128/80 09/25/2017 2:05 PM PROPERTY VALUER Pulse 77 09/25/2017 2:05 PM PROPERTY VALUER Temperature - - Respiratory Rate - - Oxygen Saturation 96% 09/25/2017 2:05 PM PROPERTY VALUER Inhaled Oxygen Concentration - - Weight 118.8 kg (262 lb) 09/25/2017 2:05 PM PROPERTY VALUER Height 180.3 cm (5' 11 ) 09/25/2017 2:05 PM PROPERTY VALUER Body Mass Index 36.54 09/25/2017 2:05 PM PROPERTY VALUER Plan of Treatment Health Maintenance Due Date Last Done Comments Colon Cancer Screening-Colonoscopy 1960 Depression Screening 1960 Hepatitis C Screening 1960 Prostate Cancer Screening-PSA 1960 DTaP/Tdap/Td Vaccine (1 - Tdap) 1971 Hepatitis B Screening 1978 Regular Well Visit/Exam 18-64 1978 Zoster Vaccine (1 of 2) 2010 Covid-19 Vaccine (3 - 2023-2 5 season) 2024 02/27/2022, 02/04/2022 Influenza Vaccine (#1) 2024 Pneumococcal vaccine <65 Aged Out No longer eligible based on patient's age to complete [place] [address] [place] [address] Care Teams Warehouse Engineer Relationship Specialty Start Date End Date Dalton Oliva MD [address] [place] [address] PCP - General 09/03/13
[2024-11-20 15:46] LABS: Basophils Percent Auto 0.5 % (0.2-1.2); Eosinophils Absolute Auto 0.1 K/mm3 (0-0.3); Eosinophils Percent Auto 1.6 % (0-4.4); Hematocrit 37.7 % (42.0-52.0); Hemoglobin 12.2 g/dL (14.0-18.0); Immature Platelet Fraction Pct 4.6 % (0.9-11.2); Lymphocytes Absolute Auto 0.96 K/mm3 (0.9-3.2); Lymphocytes Percent Auto 25.7 % (18.3-44.2); Mean Corpuscular HGB Conc 32.4 g/dl (32-36); Mean Corpuscular Hemoglobin 31.1 pg (26-34); Mean Corpuscular Volume 96.2 fl (80-100); Mean Platelet Volume 11.4 fl (7.4-10.4); Monocytes Absolute Auto 0.4 K/mm3 (0.1-0.6); Monocytes Percent Auto 9.9 % (2.6-8.5); Neutrophils Absolute Auto 2.3 K/mm3 (1.3-6.7); Neutrophils Percent Auto 62.3 % (45.5-73.1); Platelet Count Result 59 k/mm3 (150-375); Red Blood Count 3.92 M/mm3 (4.6-6.20); Red Cell Distribution Width 15.5 % (11.5-14.5); White Blood Count 3.7 K/mm3 (4.5-10.0)
[2024-11-20 16:23] LABS: Iron 57 ug/dL (49-181)
[2024-11-20 16:24] LABS: Alanine Aminotransferase 45 U/L (6-50); Albumin Level 3.8 g/dL (3.5-5.1); Alkaline Phosphatase 114 U/L (38-126); Anion Gap 8 mmol/L (4-12); Aspartate Amino Transferase 68 U/L (17-59); Bilirubin,Total 1.2 mg/dL (0.2-1.3); Blood Urea Nitrogen 13 mg/dL (9-20); Calcium 8.9 mg/dL (8.4-10.2); Carbon Dioxide 23 mmol/L (22-30); Chloride 106 mmol/L (98-107); Estimated Glomerular Filt Rate > 60; Glucose 100 mg/dL (65-110); Potassium 4.2 mmol/L (3.4-5.0); Sodium 137 mmol/L (137-145)
[2024-11-20 16:34] LABS: Percent Iron Saturation 13 % (20-50)
[2024-11-25 12:48] LABS: Soluble Transferrin Receptor 1.93 mg/L (0.76-1.76)
== END 2024-11-20 15:30 | disposition home or self-care (01) ==
LOC: ANHLAB 15:30
PROVIDERS: PCP Emergency Medicine; Visit Provider Internal Medicine Hematology & Oncology
DX: D64.9 Anemia, unspecified (principal)
CPT/HCPCS: 36415; 80053; 82728; 83540; 83550; 84238; 85025; 85055

== ENCOUNTER 2025-01-23 13:54 | Outpatient (CLI) | payer MEDICARE, SELFPAY ==
--- NOTE | ~2025-01-23 | CT_ITS ---
EXAMINATION: CTA chest PE abdomen pel DATE: 01/23/2025 14:40 INDICATION: Wheezing TECHNIQUE: Computed tomography (CT) pulmonary angiogram of the chest was performed with 100 mL Omnipa que-350 intravenous contrast. Additional 3D reconstructions utilizing coronal maximum intensity proje ction (MIP) were performed. CT of the abdomen and pelvis was performed with intravenous contrast util izing the same contrast bolus following a short delay. Automated exposure control and iterative recon struction technique were employed. The dose-length product was 1593.39 mGy-cm. COMPARISON: 09/29/2024 FINDINGS: Chest: No pulmonary embolism. Small right hydropneumothorax with slight decrease in size of the predominant pleural effusion component and with new minimal gas component. There is some pleural thickening at th e lung the anteroinferior margin of the right middle lobe. There is a persistent well-defined region of consolidation in the posterior basilar right lower lobe. There are couple tiny peripheral calcific ations potentially pleural-based along the margin of the consolidation with suggestion of some associ ated architectural distortion suggesting volume loss and would favor round atelectasis over pneumonia or malignancy. Unchanged 4 mm pleural-based nodule at the right middle lobe. Remainder of the lungs are clear with no pulmonary edema or left-sided pleural effusion. Heart size is normal. Atherosclerot ic coronary artery calcifications. No pericardial effusion. Thoracic aorta is normal in caliber with no dissection. No pathologically enlarged thoracic lymphadenopathy. Small sliding-type hiatal hernia. Moderate thoracic and lower cervical spondylosis. Bridging osteophytes at multiple levels in the mid to lower thoracic spine consistent with diffuse idiopathic skeletal hyperostosis (DISH). Chronic mil d anterior wedging at T11 and T12. Abdomen/pelvis: Nodular cirrhotic liver. Splenomegaly measuring 22 cm in craniocaudal length and which along with lef t splenorenal collaterals and gastroesophageal varices are consistent with portal venous hypertension . Gallbladder, pancreas and bilateral adrenal glands are normal. Multiple small bilateral renal cysts the largest on the right measuring 1.1 cm. Bowels including the appendix are normal. Bladder is norm al. Mesenteric edema and small amount of ascites scattered throughout the abdomen and pelvis likely r elated to liver disease. No abscess or free intraperitoneal gas. Postoperative change of prior umbili rosemarie hernia mesh repair. Unchanged likely reactive mild periportal and portacaval lymphadenopathy. The re is what appears to be a minimal amount of residual contrast extending along side nearly occlusive thrombus in the superior mesenteric vein with some secondary more peripheral portal venous congestion . The splenic vein and portal veins remain patent. Chronic anterior wedging at L1 with severe disc he ight loss with degenerative endplate changes at L1-L2. Otherwise mild spondylosis and more caudal lum bar spine. IMPRESSION: 1. Small right hydropneumothorax with slight decrease in size of the predominant pleural effusion com ponent and with new tiny gas component, the combination of which still remains smaller than the previ ous pleural effusion. This may be related to ex vacuo pneumothorax secondary to trapped lung given th e presence of pleural thickening along the right middle lobe and likely chronic round atelectasis in the posterior basilar right lower lobe. 2. Small sliding-type hiatal hernia. 3. Cirrhosis with stigmata of secondary portal venous hypertension including splenomegaly and splenor enal and gastroesophageal varices. 4. Nearly occlusive superior mesenteric vein thrombosis with likely secondary more peripheral portal venous congestion, mesenteric edema and small amount of ascites in the abdomen and pelvis. 5. The office of Dr. Oliva is currently closed at the time of dictation. I have contacted and left a message for a return call with the after-hours exchange service for Dr. Oliva. Reviewed, dictated and finalized at location A. IMPRESSION: 1. Small right hydropneumothorax with slight decrease in size of the predominan t pleural effusion component and with new tiny gas component, the combination o f which still remains smaller than the previous pleural effusion. This may be r elated to ex vacuo pneumothorax secondary to trapped lung given the presence of pleural thickening along the right middle lobe and likely chronic round atelec tasis in the posterior basilar right lower lobe. 2. Small sliding-type hiatal hernia. 3. Cirrhosis with stigmata of secondary portal venous hypertension including sp lenomegaly and splenorenal and gastroesophageal varices. 4. Nearly occlusive superior mesenteric vein thrombosis with likely secondary m ore peripheral portal venous congestion, mesenteric edema and small amount of a scites in the abdomen and pelvis. 5. The office of Dr. Oliva is currently closed at the time of dictation. I hav e contacted and left a message for a return call with the after-hours exchange service for Dr. Oliva.
[2025-01-23 14:33] LABS: Estimated Glomerular Filt Rate > 60
== END 2025-01-23 13:55 | disposition home or self-care (01) ==
PROVIDERS: PCP Emergency Medicine; Visit Provider Emergency Medicine
DX: R06.2 Wheezing (principal); Z87.09 Personal history of other diseases of the respiratory system; K44.9 Diaphragmatic hernia without obstruction or gangrene
CPT/HCPCS: 71275; 74177; Q9967

== ENCOUNTER 2025-01-27 12:40 | Emergency (ER) | payer MEDICARE, SELFPAY ==
[2025-01-27] VITALS (7 sets, daily range): BP systolic 127–145; BP diastolic 76–84; PULSE 65–87; RESP 16–23; TEMP 36.6–37.1; O2SAT 97–99
[2025-01-27] MEDS: SODIUM CHLORIDE 0.9% IV 1,000 ML 999 ML IV CONT (13:44)
[2025-01-27 13:48] LABS: Basophils Percent Auto 0.9 % (0.2-1.2); Eosinophils Absolute Auto 0.1 K/mm3 (0-0.3); Eosinophils Percent Auto 3.7 % (0-4.4); Hematocrit 42.6 % (42.0-52.0); Hemoglobin 13.9 g/dL (14.0-18.0); Immature Granulocyte Absolute 0.01 K/mm3 (0.00-0.031); Immature Granulocyte Percent A 0.3 % (0-0.5); Immature Platelet Fraction Pct 5.1 % (0.9-11.2); Lymphocytes Absolute Auto 0.89 K/mm3 (0.9-3.2); Lymphocytes Percent Auto 27.6 % (18.3-44.2); Mean Corpuscular HGB Conc 32.6 g/dl (32-36); Mean Corpuscular Hemoglobin 31.6 pg (26-34); Mean Corpuscular Volume 96.8 fl (80-100); Mean Platelet Volume 10.8 fl (7.4-10.4); Monocytes Absolute Auto 0.3 K/mm3 (0.1-0.6); Monocytes Percent Auto 8.7 % (2.6-8.5); Neutrophils Absolute Auto 1.9 K/mm3 (1.3-6.7); Neutrophils Percent Auto 58.8 % (45.5-73.1); Platelet Count Result 48 k/mm3 (150-375); Red Cell Distribution Width 13.8 % (11.5-14.5); White Blood Count 3.2 K/mm3 (4.5-10.0)
[2025-01-27 13:59] LABS: Lactic Acid Reflex 2.1 mmol/L (0.7-2.0)
[2025-01-27 14:02] LABS: Alanine Aminotransferase 35 U/L (6-50); Albumin Level 3.8 g/dL (3.5-5.1); Alkaline Phosphatase 115 U/L (38-126); Anion Gap 10 mmol/L (4-12); Aspartate Amino Transferase 52 U/L (17-59); Bilirubin,Total 0.8 mg/dL (0.2-1.3); Blood Urea Nitrogen 9 mg/dL (9-20); Calcium 9.2 mg/dL (8.4-10.2); Carbon Dioxide 21 mmol/L (22-30); Chloride 107 mmol/L (98-107); Estimated CRCL calculation 116 ml/min; Estimated Glomerular Filt Rate > 60; Glucose 124 mg/dL (65-110); Sodium 138 mmol/L (137-145); Total Protein 7.4 g/dL (6.3-8.2)
[2025-01-27 14:21] LABS: Atypical Lymphocytes Present; Platelet Estimate Decreased (Adequate); Schistocytes None Seen
--- NOTE | 2025-01-27 14:44 | ED_ITS ---
HPI - General Adult General Chief complaint: Recheck/Abnormal Lab/Rx Stated complaint: blood clot Time Seen by Provider: 01/27/25 13:14 History of Present Illness HPI narrative: This is a 64-year-old male with multiple medical comorbidities presenting after having an abnormal CTA an outpatient basis. 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 Patient himself does not know why he is in the ED other than he has a blood clot somewhere. He does note that he has had intermittent abdominal pain over the last 1 year. It is sometimes worse with food and sometimes not. He is not a nausea vomiting or diarrhea. No fevers chills chest pain difficulty breathing or urinary symptoms. Related Data Home Medications ?Medication ?Instructions ?Recorded ?Confirmed ?Last Taken ?Type naproxen 250 mg tablet 250 mg PO BID 09/27/24 01/20/25 Unknown History Allergies Allergy/AdvReac Type Severity Reaction Status Date / Time Penicillins Allergy Unknown Unknown Verified 01/27/25 12:49 FOR[facility]LY [facility], [facility] Past Medical History Medical History Pleural effusion Bronchitis Pleural effusion on right Acute dyspnea Pneumonia Pancytopenia Balanitis circinata Type 2 diabetes mellitus Diabetes mellitus HTN (hypertension) HLD (hyperlipidemia) Surgical History Surgical History History of hernia repair History of eye surgery x19 Family History Family History Father Family history of chronic obstructive pulmonary disease, Onset Age: 72 Mother Family history of malignant neoplasm, Onset Age: 68 Social History Social History Smoking status: Former smoker Alcohol intake: former Substance use: former Substance use type: does not use Last use: back in college over 40 years ago Do You Feel Safe in your Home?: Yes Lack of Transportation: No Lack of Food: Never True Current Housing: Decline to Answer Concerned About Future Housing: Decline to Answer Difficulty Paying Gas/Electric Bills: Decline to Answer Difficulty Paying for Meds: Decline to Answer Currently Unemployed: Decline to Answer Education: Decline to Answer Difficulty w/ Childcare or Family Care: Decline to Answer Living arrangements: with family Spiritual care concerns: No Exam 2 Narrative: APPEARANCE: No apparent distress. Head: atraumatic. EYES: EOMI, NOSE: Atraumatic NECK: Trachea midline RESPIRATORY: No increased rate of breathing clear to auscultation CARDIOVASCULAR: RRR, no peripheral edema ABDOMINAL: Non-distended soft nontender no guarding rebound MUSCULOSKELETAl: No obvious deformities NEURO: Alert. Moving 4/4 extremities SKIN:: Warm, dry. Normal color PSYCHIATRIC: Normal affect Course Vital Signs Vital signs: Vital Signs Temperature 97.8 F 01/27/25 12:43 Pulse Rate 85 01/27/25 12:43 Respiratory Rate 16 01/27/25 12:43 Blood Pressure 136/84 01/27/25 12:43 Pulse Oximetry 99 01/27/25 12:43 Temperature 97.8 F 01/27/25 12:43 Pulse Rate 65 01/27/25 19:55 Respiratory Rate 16 01/27/25 19:55 Blood Pressure 137/81 01/27/25 19:55 Pulse Oximetry 98 01/27/25 19:55 Medical Decision Making [facility] Narrative Medical decision making narrative: -Course: 64-year-old male presenting with a near occlusive clot of his mesenteric vein. Patient is asymptomatic without any severe abdominal pain or issues tolerating p.o.. This is essentially an incidental finding as his primary care physician was scanning him for a PE. This was discussed with Dr. 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 Dr. Luo recommended transfer to [facility]. Patient was accepted by GI under Dr. Fortune. However the waitlist was listed at 1 month. I discussed this with Dr. Garcia, the patient's heme oncologist. He would like the patient placed on low-dose Eliquis. Patient has history of liver cirrhosis but is Child Cervantes A so Noacs can be used with caution. Dr. Garcia will follow the patient closely to ensure his blood counts are staying at a safe level. This was discussed with the patient and he is agreeable with plan. He does not want to wait 1 month to go to [facility]. He is currently asymptomatic and has been eating throughout his stay here without difficulty. His vital signs are stable his labs within normal limits. I did stress the importance return ED if he developed any abdominal pain, bleeding or any new or worsening symptoms. Vital Signs Vital Signs: Vital Signs Temperature 97.8 F 01/27/25 12:43 Pulse Rate 85 01/27/25 12:43 Respiratory Rate 16 01/27/25 12:43 Blood Pressure 136/84 01/27/25 12:43 Pulse Oximetry 99 01/27/25 12:43 Temperature 97.8 F 01/27/25 12:43 Pulse Rate 65 01/27/25 19:55 Respiratory Rate 16 01/27/25 19:55 Blood Pressure 137/81 01/27/25 19:55 Pulse Oximetry 98 01/27/25 19:55 Lab Data 01/27/25 13:37 01/27/25 13:37 Labs: Lab Results 01/27/25 01/27/25 Range/Units 13:37 15:46 WBC 3.2 L (4.5-10.0) K/mm3 RBC 4.40 L (4.6-6.20) M/mm3 Hgb 13.9 L (14.0-18.0) g/dL Hct 42.6 (42.0-52.0) % MCV 96.8 (80-100) fl MCH 31.6 (26-34) pg MCHC 32.6 (32-36) g/dl RDW 13.8 (11.5-14.5) % Plt Count 48 L (150-375) k/mm3 MPV 10.8 H (7.4-10.4) fl Immature Gran % (Auto) 0.3 (0-0.5) % Neut % (Auto) 58.8 (45.5-73.1) % Lymph % (Auto) 27.6 (18.3-44.2) % [place] % (Auto) 8.7 H (2.6-8.5) % Eos % (Auto) 3.7 (0-4.4) % Baso % (Auto) 0.9 (0.2-1.2) % Lymph # (Auto) 0.89 L (0.9-3.2) K/mm3 [place] # (Auto) 0.3 (0.1-0.6) K/mm3 Eos # (Auto) 0.1 (0-0.3) K/mm3 Baso # (Auto) 0.0 (0.0-0.1) K/mm3 Abs Immat Gran (auto) 0.01 (0.00-0.031) K/mm3 Absolute Neuts (auto) 1.9 (1.3-6.7) K/mm3 Absolute Nucleated RBC 0.000 (0.0-0.012) K/mm3 Band Neutrophils % Not Reportable Nucleated RBC % 0.0 (0.0-0.2) % Atypical Lymphocytes Present Platelet Estimate Decreased (Adequate) % Immature Plt Fraction 5.1 (0.9-11.2) % Schistocytes None seen PT 14.0 (11.1-14.7) Seconds INR 1.1 APTT 30.7 (22.3-36.8) Seconds Sodium 138 (137-145) mmol/L Potassium 4.0 (3.4-5.0) mmol/L Chloride 107 (98-107) mmol/L Carbon Dioxide 21 L (22-30) mmol/L Anion Gap 10 (4-12) mmol/L BUN 9 (9-20) mg/dL Creatinine 0.70 (0.7-1.3) mg/dL Estim Creat Clear Calc 116 ml/min Estimated GFR > 60 (59 - ) Glucose 124 H (65-110) mg/dL Lactic Acid 2.1 H 2.3 H (0.7-2.0) mmol/L Calcium 9.2 (8.4-10.2) mg/dL Total Bilirubin 0.8 (0.2-1.3) mg/dL AST 52 (17-59) U/L ALT 35 (6-50) U/L Alkaline Phosphatase 115 (38-126) U/L Total Protein 7.4 (6.3-8.2) g/dL Albumin 3.8 (3.5-5.1) g/dL Discharge Plan Discharge Clinical Impression: Pancytopenia, Mesenteric vein thrombosis Patient Disposition: Home Condition: Stable Instructions: Antibiotic Form, Thrombocytopenia (ED), Blood Thinners (ED) Additional Instructions: You were seen emergency department for a mesenteric vein thrombosis. Please take Eliquis 2.5 mg twice daily. It is important that you call Dr. Garcia's office and arrange close follow-up as you will need repeat lab work within 1 week. If you develop severe abdominal pain, intractable nausea vomiting or rectal bleeding please return to the ED immediately for re-evaluation. Patient Language: Bhutanese Prescriptions: New Eliquis 2.5 mg tablet 2.5 mg PO BID Qty: 60 0RF No Action naproxen 250 mg tablet 250 mg PO BID albuterol sulfate [Ventolin HFA] 90 mcg/actuation HFA aerosol inhaler 2 puff inhalation QID PRN (Reason: shortness of breath or wheezing) Qty: 8.5 0RF benzonatate 200 mg capsule 200 mg PO TID Qty: 20 0RF nystatin 100,000 unit/gram cream 1 applic topical TID Qty: 30 4RF dapagliflozin propanediol [Farxiga] 10 mg tablet 10 mg PO QAM 90 Days Qty: 90 4RF Rybelsus 3 mg tablet 3 mg PO DAILY Qty: 90 1RF nystatin 100,000 unit/mL suspension 1 ml PO DAILY Qty: 60 0RF Rx Instructions: swish and swallow ferrous sulfate 325 mg (65 mg iron) tablet 325 mg PO DAILY 30 Days Qty: 30 1RF lisinopril 20 mg tablet See Rx Instructions .ROUTE .COMPLEX Qty: 90 2RF Dose Instruction: Take 1 tablet by mouth once daily Rx Instructions: Take 1 tablet by mouth once daily glimepiride 4 mg tablet See Rx Instructions .ROUTE .COMPLEX Qty: 90 2RF Dose Instruction: Take 1 tablet by mouth once daily Rx Instructions: Take 1 tablet by mouth once daily metformin 1,000 mg tablet See Rx Instructions .ROUTE .COMPLEX Qty: 180 2RF Dose Instruction: TAKE 1 TABLET BY MOUTH TWICE DAILY WITH MORNING MEAL AND WITH EVENING MEAL Rx Instructions: TAKE 1 TABLET BY MOUTH TWICE DAILY WITH MORNING MEAL AND WITH EVENING MEAL amlodipine 5 mg tablet See Rx Instructions .ROUTE .COMPLEX Qty: 90 2RF Dose Instruction: Take 1 tablet by mouth once daily Rx Instructions: Take 1 tablet by mouth once daily simvastatin 10 mg tablet See Rx Instructions .ROUTE .COMPLEX Qty: 90 2RF Dose Instruction: Take 1 tablet by mouth once daily Rx Instructions: Take 1 tablet by mouth once daily cyclobenzaprine 10 mg tablet 10 mg PO BID PRN (Reason: muscle spasm) Qty: 30 0RF Follow-up/Referrals: Dalton Oliva MD [Primary Care Provider] - Mookie Garcia MD [Physician] - 3 Days (Thrombocytopenia, Mesenteric vein thrombosis)
[2025-01-27 15:28] LABS: INR 1.1
[2025-01-27 15:29] LABS: Partial Thromboplastin Time 30.7 Seconds (22.3-36.8)
--- OUTSIDE RECORDS SUMMARY | 2025-01-27 15:40 | XMS_ITS | Clinical Summary ---
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 Active simvastatin (ZOCOR) 10 mg tablet Take 10 mg by mouth daily at bedtime. Active predniSONE (DELTASONE) 50 mg tablet Take 1 Tablet by mouth daily. Active nystatin (MYCOSTATIN) 100,000 unit/mL suspension SWISH [...] tablet Take 1 Tablet by mouth daily. Active doxycycline hyclate (VIBRAMYCIN) 100 mg capsule Take 1 Capsule by mouth 2 times daily. Active albuterol sulfate HFA 90 mcg/actuation aerosol inhaler by See Admin Instructions route see administration instructions. Active Active Problems No known active problems Encounters Date Type Department Care Team Description 12/04/2024 4:00 PM CDT Telephone Check Up [facility] Oncology and Hematology - [place] [address] [place] [address] Mookie Garcia MD Chronic anemia (Primary Dx) 11/26/2024 Orders Only [facility] Oncology and Hematology - [place] [address] [place] [address] Mookie Garcia MD 11/25/2024 External Device Data ST[facility] ABSTRACTION Provider, Abstract 11/25/2024 External Device Data ST[facility] ABSTRACTION Provider, Abstract 11/25/2024 External Device Data [facility] ABSTRACTION Provider, Abstract 11/21/2024 Orders Only [facility] Oncology and Hematology [facility] [address] [place] [address] Mookie Garcia MD 11/20/2024 3:00 PM CDT Office Visit [facility] Oncology and Hematology 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 Gender Identity Not on file Sexual Orientation [...] P M CDT Height 180.3 cm (5' 11) 11/20/2024 2:50 PM CDT Body Mass Index 32.89 11/20/2024 2:50 PM CDT Plan of Treatment Upcoming Encounters Date Type Department Care Team (Late st Contact Info) Description 03/06/2025 11:45 AM CDT Office Visit [facility] Oncology and Hematology - [place] [address] [place] [address] Mookie Garcia MD [address] [facility] [address] [place] [address] Health Maintenance Due Date Last Done Comments Pre-Diabetes and Diabetes Screening 1960 DTAP/TDAP/TD VACCINES (1 - Tdap) 1979 COLORECTAL SCREENING 2005 Colorectal Cancer Screening 2005 FIT-DNA Q 3 years 2005 FIT/FOBT Q 1 year 2005 Flex Sig/CT Colonography Q 5 years 2005 ZOSTER VACCINE (1 of 2) 2010 INFLUENZA VACCINE (#1) 2024 RSV VACCINE (60+ or ) (1 - 1-dose 75+ series) 2035 Procedures Procedure Name Priority Date/Time Associated Diagnosis Comments IRON, TIBC, AND PERCENT SATURATION Routine 11/20/2024 12:02 PM CDT COMPREHENSIVE METABOLIC PANEL Routine 11/20/2024 12:01 PM CDT TRANSFERRIN RECEPTOR TFR SOLUBLE Routine 11/20/2024 7:59 AM CDT from Last 3 Months Results * IRON, TIBC, AND PERCENT SATURATION (11/20/2024 12:02 PM CDT) Blood us Mookie Garcia MD CHEMISTRY ORDERABLES Final Resu lt * COMPREHENSIVE METABOLIC PANEL (11/20/2024 12:01 PM CDT) Blood us Mookie Garcia MD CHEMISTRY ORDERABLES Final Resu lt * TRANSFERRIN RECEPTOR TFR SOLUBLE (11/20/2024 7:59 AM CDT) Blood us Mookie Garcia MD CHEMISTRY ORDERABLES Final Resu lt from Last 3 [place] [address] MEDICARE PART A AND B
[2025-01-27 15:42] LABS: Reflex Lactic Acid Yes or No Add Lactic
[2025-01-27 16:02] LABS: Lactic Acid 2.3 mmol/L (0.7-2.0)
--- NOTE | 2025-01-27 17:29 | PC.NURSE ---
Dinner tray ordered for pt.
[2025-01-27] MEDS: APIXABAN 2.5 MG TABLET PO (21:51)
== END 2025-01-27 22:08 | disposition home or self-care (01) ==
PROVIDERS: Emergency Provider Emergency Medicine; PCP Emergency Medicine
DX: K55.059 Acute (reversible) ischemia of intestine, part and extent unspecified (principal); D61.818 Other pancytopenia; E11.9 Type 2 diabetes mellitus without complications; E78.5 Hyperlipidemia, unspecified; I10 Essential (primary) hypertension; Z87.891 Personal history of nicotine dependence
CPT/HCPCS: 36415; 80053; 83605; 85025; 85055; 85610; 85730; 96360; 99283; A9270; J7030

== ENCOUNTER 2025-03-06 11:31 | Outpatient (CLI) | payer MEDICARE, SELFPAY ==
--- OUTSIDE RECORDS SUMMARY | 2025-03-06 11:34 | XMS_ITS | Clinical Summary ---
Author Organization [facility] Rubina goldstein [facility] Address [address] [facility] [place] [address] Care Team Providers Care Document Control Clerk Name Role Phone Unavailable Primary Care Provider [...] Encounters Date Type Department Care Team Description 01/28/[address] 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 Oncology and Hematology [facility] [address] [facility] [address] [place] [address] Mookie Garcia MD [address] [facility] [address] [place] [address] Health Maintenance Due Date Last Done Comments Pre-Diabetes and Diabetes Screening 1960 DTAP/TDAP/TD VACCINES (1 - Tdap) 1979 COLORECTAL SCREENING 2005 Colorectal Cancer Screening 2005 FIT-DNA Q 3 years 2005 FIT/FOBT Q 1 year 2005 Flex Sig/CT Colonography Q 5 years 2005 ZOSTER VACCINE (1 of 2) 2010 [place] Prev entative Visit/Annual Wellness Visit 08/20/2024 INFLUENZA VACCINE (#1) 2025 RSV VACCINE (60+ or ) (1 - 1-dose 75+ series) 2035 Procedures Procedure Name Priority Date/Time Associated Diagnosis Comments VITAMIN B12 AND FOLATE Routine 02/23/2025 11:44 AM CDT Chronic anemia IRON, TIBC, AND PERCENT SATURATION Routine 02/23/2025 11:44 AM CDT Chronic anemia FERRITIN Routine 02/23/2025 11:44 AM CDT Chronic anemia from Last 3 Months Results * VITAMIN B12 AND FOLATE (02/23/2025 11:44 AM CDT) Pathologist [facility] VITAMIN B12 391 200 - 1100 pg/mL [facility] Comment: Please Note: Although the reference range for vitamin B12 is 200-1100 pg/mL, it has been reported that between 5 and 10% of patients with values between 200 and 400 pg/mL may experience neuropsychiatric and hematologic abnormalities due to occult B12 deficiency; less than 1% of patients with values above 400 pg/mL will have symptoms. FOLATE, SERUM 8.0 ng/mL [facility] Comment: Reference Range Low: <3.4 Borderline: 3.4-5.4 Normal: >5.4 Test Performed at: [facility] [address] [place] [address] Mackenzie Byrnes MD Blood 02/23/2025 11:4 4 AM CDT 02/23/2025 11:45 AM CDT us Mookie Garcia MD CHEMISTRY ORDERABLES Final Resu lt [facility] [phone] [facility] [address] [place] [address] * IRON, TIBC, AND PERCENT SATURATION (02/23/2025 11:44 AM CDT) Pathologist [facility] IRON 149 50 - 180 mcg/dL [facility] TIBC 366 250 - 425 mcg/dL (calc) [facility] IRON % SATURATION 41 20 - 48 % (calc) [facility] Comment: Test Performed at: [facility] [address] [place] [address] Mackenzie Byrnes MD Blood 02/23/2025 11:4 4 AM CDT 02/23/2025 11:45 AM CDT Mookie Garcia MD CHEMISTRY ORDERABLES Final Resu lt Performing Organization Address City/[facility]/ZIP Co de Phone Number [facility] [phone] [address] * FERRITIN (02/23/2025 11:44 AM CDT) Pathologist [facility] FERRITIN 63 24 - 380 ng/mL [facility] Comment: Test Performed at: [facility] [address] [place] [id number] Mackenzie Byrnes MD Blood 02/23/2025 11:4 4 AM CDT 02/23/2025 11:45 AM CDT Mookie Garcia MD CHEMISTRY ORDERABLES Final Resu lt Performing Organization Address City/[facility]/ZIP Co de Phone Number [facility] [phone] [facility] [address] from Last 3 Months Insurance [facility] PPO [facility]
[2025-03-06 11:52] LABS: Hematocrit 40.6 % (42.0-52.0); Hemoglobin 13.4 g/dL (14.0-18.0); Immature Platelet Fraction Pct 4.0 % (0.9-11.2); Mean Corpuscular HGB Conc 33.0 g/dl (32-36); Mean Corpuscular Hemoglobin 31.5 pg (26-34); Mean Corpuscular Volume 95.3 fl (80-100); Platelet Count Result 104 k/mm3 (150-375); Red Blood Count 4.26 M/mm3 (4.6-6.20); White Blood Count 6.8 K/mm3 (4.5-10.0)
[2025-03-06 11:53] LABS: Blood Urea Nitrogen 20 mg/dL (8-26); Carbon Dioxide 23 mmol/L (22-30); Chloride 103 mmol/L (98-109); Estimated Glomerular Filt Rate > 60; Glucose 173 mg/dL (70-105); Ionized Calcium (POC) 1.21 mmol/L (1.11-1.31); Potassium 4.8 mmol/L (3.5-4.9); Sodium 136 mmol/L (138-146)
== END 2025-03-06 11:32 | disposition home or self-care (01) ==
LOC: ANHLAB 11:32
PROVIDERS: PCP Emergency Medicine; Visit Provider Internal Medicine Hematology & Oncology
DX: D64.9 Anemia, unspecified (principal)
CPT/HCPCS: 36415; 80047; 85027; 85055

== ENCOUNTER 2025-03-16 13:23 | Outpatient (CLI) | payer MEDICARE, SELFPAY ==
--- NOTE | ~2025-03-16 | XR_ITS ---
CHEST RADIOGRAPH, PA AND LATERAL CLINICAL HISTORY: Chest discomfort . COMPARISON: 10/07/2024 and dating back to 09/29/2024. Reference is also made to a CT examination of the chest performed 01/23/2025 which demonstrated a right-sided hydropneumothorax, sequelae portal hyperte nsion and partial superior mesenteric vein thrombosis.. TECHNIQUE: PA and lateral views of the chest. FINDINGS Redemonstration of a right-sided hydropneumothorax with an air-fluid level, increased from previous C T examination dated 01/23/2025. The interval change is the apical air component, when compared with previous CT examination of the est dated 01/23/2025. Approximately 16 mm of separation present right apex. Approximately 22 mm of separation is identified within the lateralmost right mid to lower lung field. With approximately 9 mm of medial separation is redemonstrated. No mediastinal shift is demonstrated. Moderate kyphosis is noted. The left hemithorax is clear. IMPRESSION: Redemonstration of a right-sided hydropneumothorax (likely due to trapped lung), increased from previ ous CT examination performed 01/23/2025, without mediastinal shift. Reviewed, dictated and finalized at location A. IMPRESSION: Redemonstration of a right-sided hydropneumothorax (likely due to trapped lung) , increased from previous CT examination performed 01/23/2025, without mediastina l shift.
--- OUTSIDE RECORDS SUMMARY | 2025-03-16 13:27 | XMS_ITS | Clinical Summary ---
Author Organization [facility] Rubina goldstein [facility] Address [address] [place] [address] Care Team Providers Care Computer Animator Name Role Phone Unavailable Primary Care Provider Unavailabl e Allergies Active Allergy Reactions Criticality Noted Date Comments Penicillins Unknown 09/25/2017 Medications SITagliptin phosphate (JANUVIA) 50 mg Tablet Take 50 mg by mouth daily. Active simvastatin (ZOCOR) 10 mg tablet Take 10 mg by mouth daily at bedtime. Active predniSONE (DELTASONE) 50 mg tablet Take 1 Tablet by mouth daily. 09/27/19 25 Active nystatin (MYCOSTATIN) 100,000 unit/mL suspension SWISH & SWALLOW 1 ML ONCE DAILY 10/14/19 25 Active metFORMIN (GLUCOPHAGE) 1,000 mg tablet take 1 tablet by mouth twice daily with morning meal and with evening meal Active glimepiride (AMARYL) 4 mg tablet Take 4 mg by mouth daily. Active FeroSuL 325 mg (65 mg iron) tablet Take 1 Tablet by mouth daily. 11/06/19 25 Active doxycycline hyclate (VIBRAMYCIN) 100 mg capsule Take 1 Capsule by mouth 2 times daily. 09/27/19 25 Active albuterol sulfate HFA 90 mcg/actuation aerosol inhaler by See Admin Instructions route see administration instructions. 09/27/19 25 Active spironolactone (ALDACTONE) 50 mg tablet Take 50 mg by mouth daily. 02/12/20 25 026 Active semaglutide 14 mg Tablet Take 14 mg by mouth daily. Active naproxen (NAPROSYN) 250 mg tablet Take 250 mg by mouth. 01/23/20 25 Active furosemide (LASIX) 20 mg tablet Take 20 mg by mouth daily. 02/12/20 25 026 Active dapagliflozin propanediol (FARXIGA) 10 mg Tablet Take 10 mg by mouth daily. Active cyclobenzaprine (FLEXERIL) 10 mg tablet Take 10 mg by mouth 3 times daily as needed for Spasm. Active benzonatate (TESSALON) 200 mg capsule Take 1 Capsule by mouth 3 times daily. 01/15/20 Active amLODIPine (NORVASC) 5 mg tablet Take 5 mg by mouth daily. 01/23/20 25 Active rivaroxaban (Xarelto) 20 mg Tablet Take 1 Tablet (20 mg) by mouth daily with supper. Take after completing 21 days of 15 mg twice daily with food. 30 Tablet 1 03/06/20 25 Active lisinopriL (PRINIVIL) 20 mg tablet Take 20 mg by mouth daily. 025 Discontinu ed(Alterna te therapy prescribed ) Eliquis 2.5 mg tablet Take 2.5 mg by mouth 2 times daily. 01/29/20 25 025 Discontinu ed(Alterna te therapy prescribed ) Active Problems No known active problems Encounters Date Type Department Care Team Description 03/10/2025 Orders Only [facility] Oncology and Hematology - Josiah Pasquale Sena [address] [place] [phone] Mookie Garcia MD 03/06/2025 11:45 AM CDT Office Visit [facility] Oncology and Hematology Josiah Braxton Sena [address] [place] [phone] Mookie Garcia MD 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 Telephone [facility] [address] [place] [phone] Mookie Garcia MD ER Follow up Questions [...] Date Smoking Tobacco: Never Smokeless Tobacco: Never Tobacco Cessation:Counseling Given: Not Answered Alcohol Use Standard Drinks/Week Comments Yes 0 (1 standard drink = 0.6 oz pur e alcohol) Occasionally Sex and Gender Information Value Date Recorded Sex Assigned at Not on file 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 Gender Identity Not on file Sexual Orientation Not on file Last Filed Vital Signs Vital Sign Reading Time Taken Comments Blood Pressure 111/65 03/06/2025 12:19 PM CDT Pulse 88 03/06/2025 12:19 PM CDT Temperature 36.8 C (98.3 F) 03/06/2025 12:19 PM CDT Respiratory Rate 15 03/06/2025 12:1 9 PM CDT Oxygen Saturation 96% 03/06/2025 12: 19 PM CDT Inhaled Oxygen Concentration - - Weight 102.7 kg (226 lb 6.4 oz) 025 12:19 PM CDT Height 180.3 cm (5' 11) 11/20/2024 2:50 PM CDT Body Mass Index 31.58 11/20/2024 2:50 PM CDT Plan of Treatment Upcoming Encounters Date Type Department Care Team (Late st Contact Info) Description 05/20/2025 2:00 PM CDT Office Visit [facility] Oncology and Hematology - Josiah [address] [facility] [address] [place] [address] Mookie Garcia MD [address] [facility] [address] [place] [address] Health Maintenance Due Date Last Done Comments Pre-Diabetes and Diabetes Screening 1960 DTAP/TDAP/TD VACCINES (1 - Tdap) 1979 COLORECTAL SCREENING 2005 Colorectal Cancer Screening 2005 FIT-DNA Q 3 years 2005 FIT/FOBT Q 1 year 2005 Flex Sig/CT Colonography Q 5 years 2005 ZOSTER VACCINE (1 of 2) 2010 RSV VACCINE (60+ or ) (1 - Risk 60-74 years 1-dose series) 2020 INFLUENZA VACCINE (#1) 2025 Procedures Procedure Name Priority Date/Time Associated Diagnosis Comments BASIC METABOLIC PANEL Routine 03/06/2025 3:10 PM CDT CBC WITH DIFFERENTIAL Routine 03/06/2025 3:06 PM CDT VITAMIN B12 AND FOLATE Routine 02/23/2025 11:44 AM CDT Chronic anemia IRON, TIBC, AND PERCENT SATURATION Routine 02/23/2025 11:44 AM CDT Chronic anemia FERRITIN Routine 02/23/2025 11:44 AM CDT Chronic anemia from Last 3 Months Results * BASIC METABOLIC PANEL (03/06/2025 3:10 PM CDT) Blood us Mookie Garcia MD CHEMISTRY ORDERABLES Final Resu lt * CBC WITH DIFFERENTIAL (03/06/2025 3:06 PM CDT) Blood us Mookie Garcia MD HEMATOLOGY ORDERABLES Final Res ult * VITAMIN B12 AND FOLATE (02/23/2025 11:44 AM CDT) VITAMIN B12 391 200 - 1100 pg/mL [facility] Comment: Please Note: Although the reference range for vitamin B12 is 200-1100 pg/mL, it has been reported that between 5 and 10% of patients with values between 200 and 400 pg/mL may experience neuropsychiatric and hematologic abnormalities due to occult B12 deficiency; less than 1% of patients with values above 400 pg/mL will have symptoms. FOLATE, SERUM 8.0 ng/mL [facility] Comment: Reference Range Low: <3.4 Borderline: 3.4-5.4 Normal: >5.4 Test Performed at: [facility] [address] [place] [address] Mackenzie Byrnes MD Blood 02/23/2025 11:4 4 AM CDT 02/23/2025 11:45 AM CDT us Mookie Garcia MD CHEMISTRY ORDERABLES Final Resu lt [facility] [phone] [facility] [id number] [place] [phone] * IRON, TIBC, AND PERCENT SATURATION (02/23/2025 11:44 AM CDT) IRON 149 50 - 180 mcg/dL [facility] TIBC 366 250 - 425 mcg/dL (calc) [facility] IRON % SATURATION 41 20 - 48 % (calc) [facility] Comment: Test Performed at: [facility] [address] [employer] [address] Mackenzie Byrnes MD Blood 02/23/2025 11:4 4 AM CDT 02/23/2025 11:45 AM CDT us Mookie Garcia MD CHEMISTRY ORDERABLES Final Resu lt Performing Organization Address [facility]/ZIP Co de Phone Number [facility] [phone] [facility] [place] [address] * FERRITIN (02/23/2025 11:44 AM CDT) FERRITIN 63 24 - 380 ng/mL [facility] Comment: Test Performed at: [facility] [place] [address] Mackenzie Byrnes MD Blood 02/23/2025 11:4 4 AM CDT 02/23/2025 11:45 AM CDT us Mookie Garcia MD CHEMISTRY ORDERABLES Final Resu lt [facility] [phone] [facility] [address] from Last 3 Months Insurance [facility] PPO SNP MCR
== END 2025-03-16 13:24 | disposition home or self-care (01) ==
PROVIDERS: PCP Emergency Medicine; Visit Provider Internal Medicine Gastroenterology
DX: R07.89 Other chest pain (principal)
CPT/HCPCS: 71046

== ENCOUNTER 2025-04-02 08:01 | Outpatient (CLI) | payer MEDICARE, SELFPAY ==
--- OUTSIDE RECORDS SUMMARY | 2025-04-02 08:05 | XMS_ITS | Clinical Summary ---
Author Organization [facility] Rubina goldstein [facility] Address [address] [place] [address] Care Team Providers Care Hot Blaster Name Role Phone Unavailable Primary Care Provider [...] Department Care Team Description 03/10/2025 Orders Only [facility] Oncology and Hematology - Josiah Pasquale Sena [address] [place] [phone] Mookie Garcia MD 03/06/2025 11:45 AM CDT Office Visit [facility] Oncology and Hematology Josiah Braxton Sena [address] [place] [phone] Mookie Garcia MD 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 Telephone [facility] Oncology [facility] Hemat[facility] [address] [place] [phone] Mookie Garcia MD ER Follow up Questions [...] on file 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 Gender Identity Not on file Sexual [...] Description 05/20/2025 2:00 PM CDT Office Visit [facility] Oncology and Hematology - Josiah [address] [facility] [address] [place] [address] Mookie Garcia MD [address] [facility] [address] [place] [address] Health Maintenance Due Date Last Done Comments Pre-Diabetes and Diabetes Screening 1960 DTAP/TDAP/TD VACCINES (1 - Tdap) 1979 FIT-DNA Q 3 years 2005 FIT/FOBT Q 1 year 2005 Flex Sig/CT Colonography Q 5 years 2005 ZOSTER VACCINE (1 of 2) 2010 RSV VACCINE (60+ or ) (1 - Risk 60-74 years 1-dose series) 2020 INFLUENZA VACCINE (#1) 2025 COLORECTAL SCREENING 11/17/2030 11/17/2020 Colorectal Cancer Screening 11/17/2030 Procedures Procedure Name Priority Date/Time Associated Diagnosis [...] VITAMIN B12 391 200 - 1100 pg/mL [facility] Comment: Please Note: Although the [...] Borderline: 3.4-5.4 Normal: >5.4 Test Performed at: [facility] [address] [address] Mackenzie Byrnes MD Blood 02/23/2025 11:4 4 AM CDT 02/23/2025 11:45 AM CDT us Mookie Garcia MD CHEMISTRY ORDERABLES Final Resu lt [facility] [phone] [facility] [address] [place] [address] * IRON, TIBC, AND PERCENT SATURATION (02/23/2025 11:44 AM CDT) IRON 149 50 - 180 mcg/dL [facility] TIBC 366 250 - 425 mcg/dL (calc) [facility] IRON % SATURATION 41 20 - 48 % (calc) [facility] Comment: Test Performed at: [facility] [address] [place] [address] Mackenzie Byrnes MD Blood 02/23/2025 11:4 4 AM CDT 02/23/2025 11:45 AM CDT us Mookie Garcia MD CHEMISTRY ORDERABLES Final Resu lt Performing Organization Address [facility] Co de Phone Number [facility] [phone] [facility] [address] [place] [address] * FERRITIN (02/23/2025 11:44 AM CDT) FERRITIN 63 24 - 380 ng/mL [facility] Comment: Test Performed at: [facility] [address] [place] [address] Mackenzie Byrnes MD Blood 02/23/2025 11:4 4 AM CDT 02/23/2025 11:45 AM CDT us Mookie Garcia MD CHEMISTRY ORDERABLES Final Resu lt [facility] [phone] [facility] [address] [place] [address] from Last 3 [place] [address] [facility] PPO SNP MCR
--- NOTE | 2025-04-02 10:53 | WPDSIXMINUTE ---
Six Minute Walk Procedure Procedure Performed Pulmonary Stress Test (6 min walk) Six Minute Walk Six Minute Walk: This is a 6 minute walk test. The test was performed and interpreted in accordance with the 2014 ERS/ATS task force guidelines. Findings: The patient's resting room air oxygen saturation measured by pulse oximetry was 96%, the heart rate was 92 bpm, and the modified Wayne dyspnea score was 0-1. Patient ambulated for 335 meters and oxygen saturation remained 95 to 97%. At the end of the study the heart rate was 99 bpm and the modified Wayne dyspnea score was 1. The patient did not qualify for supplemental oxygen at rest or with ambulation. There are no prior studies for comparison.
--- NOTE | 2025-04-02 10:54 | P.PCNPFT_ITS ---
PFT Procedure Performed PFT Procedure Performed Spirometry with Pre/Post Bronchodilator Plethysmography (Lung Vol) Diffusing Cap (DLCO) Flow Vol Loop PFT Interpretation This is a pulmonary function test with pre and post-bronchodilator spirometry, plethysmography and diffusing capacity. The test was performed and results interpreted in accordance with the 2019 and 2005 ATS/ERS Task Force guidelines respectively using the Global Lung Function Initiative-2012 reference equations. Patient demonstrated good effort and cooperation. Reproducibility criteria were met. The quality of the pre bronchodilator spirometry maneuver was Grade B and post bronchodilator spirometry maneuver was Grade B. Findings: Spirometry: There is decreased maximal expiratory airflow at all lung volumes. The contour of the inspiratory flow tracing is truncated. The pre bronchodilator FVC is 3.59 L, 75% predicted. The pre bronchodilator FEV1 is 1.95 L, 53% predicted. The pre bronchodilator FEV1: FVC ratio is 54%. The post bronchodilator FVC is 3.42 L, representing a 5% decrease. The post bronchodilator FEV1 is 1.92 L, representing a 1% decrease. The post bronchodilator FEV1: FVC ratio is 56%. Plethysmography: The total lung capacity is 7.10 L, 96% predicted. The functional residual capacity is 4.19 L, 107% predicted. The residual volume is 3.51 L, 144% predicted. The residual volume: Total lung capacity ratio is 49%. Diffusing capacity: The diffusing capacity unadjusted for hemoglobin and carb oxyhemoglobin is 16.2, 57% predicted. The diffusing capacity adjusted for alveolar volume is 3.53, 88% predicted. Impression: There is a moderately severe obstructive abnormality. There is no significant improvement after inhaling a single dose of albuterol. The increase in residual volume to total lung volume ratio is consistent with hyperinflation from an obstructive abnormality. The diffusing capacity unadjusted for hemoglobin and carboxyhemoglobin is moderately decreased and normalizes when adjusted for alveolar volume. There are no prior studies for comparison
== END 2025-04-02 08:02 | disposition home or self-care (01) ==
PROVIDERS: PCP Emergency Medicine; Visit Provider Internal Medicine Critical Care Medicine
DX: J98.11 Atelectasis (principal); R94.2 Abnormal results of pulmonary function studies
CPT/HCPCS: 94060; 94618; 94726; 94729

== ENCOUNTER 2025-05-11 10:50 | Outpatient (CLI) | payer MEDICARE, SELFPAY ==
--- NOTE | ~2025-05-11 | CT_ITS ---
EXAMINATION: CT abdomen pelvis w con DATE: 05/11/2025 11:19 INDICATION: Mesenteric vein thrombosis. TECHNIQUE: Computed tomography (CT) of the abdomen and pelvis was performed with 100 mL Omnipaque 350 intravenous contrast. Automated exposure control and iterative reconstruction technique were employed. The dose-length product was 895.67 mGy-cm. COMPARISON: CT abdomen and pelvis 01/23/2025 FINDINGS: The visualized portions of lung bases demonstrate a small right hydropneumothorax with pleural thickening. There is peripheral rounded atelectasis in right middle lobe and right lower lobe. The heart size is normal. No pericardial effusion. Paraesophageal varices are noted. There is liver alejandro face nodularity, consistent with cirrhosis. The gallbladder is normal. There is severe splenomegaly. The pancreas and adrenal glands are normal. There are cysts in the kidneys measuring up to 13 mm on the right. There is a splenorenal venous shunt. There are no dilated loops of bowel. The appendix is normal. There is mild periportal lymphadenopathy, likely reactive. There is trace ascites. There is thrombus in superior mesenteric vein and main portal vein. There is severe lumbar spondylosis. There is chronic anterior wedging of multiple vertebral bodies. IMPRESSION: 1. Cirrhosis of the liver with portal venous hypertension. 2. Chronic small right hydropneumothorax with interval decrease in the pleural effusion component. 3. 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 Reviewed, dictated and finalized at location E. IMPRESSION: 1. Cirrhosis of the liver with portal venous hypertension. 2. Chronic small right hydropneumothorax with interval decrease in the pleural effusion component. 3. Nonocclusive chronic thrombus in superior mesenteric vein and main portal ve in again seen.
[2025-05-11 11:13] LABS: Estimated Glomerular Filt Rate > 60
--- OUTSIDE RECORDS SUMMARY | 2025-05-11 12:03 | XMS_ITS | Encounter Summary ---
Author Organization [facility] Address [address] [place] [address] Phone Care Team Providers Care General Manager Food Name Role Phone Dalton Oliva MD Primary Care Provide r Encounter Details Date Type Department Care Team (Late st Contact Info) Description 01/23/2025 Orders Only [facility] Scanning, Provider Social History Tobacco Use Types Packs/Day Years Used Date Smoking Tobacco: Never Smokeless Tobacco: Never Alcohol Use Standard Drinks/Week Comments No 0 (1 standard drink = 0.6 oz pur e alcohol) Sex and Gender Information Value Date Recorded Sex Assigned at Not on file 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 Gender Identity Not on file Sexual Orientation Not on file documented as of this encounter Plan of Treatment Not on file documented as of this encounter Procedures Procedure Name Priority Date/Time Associated Diagnosis Comments SCAN - RADIOLOGY/IMAGING 01/23/2025 documented in this encounter Results * SCAN - RADIOLOGY/IMAGING (01/23/2025) Anatomical Region Laterality Modality Other us Provider Scanning Final Result documented in this encounter Visit Diagnoses Not on filedocumented in this encounter Care Teams General Manager Food Relationship Specialty Start Date End Date Dalton Oliva MD [address] [place] [address] PCP - General 09/03/13 documented as of this encounter
--- OUTSIDE RECORDS SUMMARY | 2025-05-11 12:03 | XMS_ITS | Clinical Summary ---
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 Active metFORMIN (GLUCOPHAGE) 500 mg tablet Take 1 tablet (500 mg total) by mouth 2 (two) times a day with meals Active Eliquis 2.5 mg tablet Take 1 tablet (2.5 mg total) by mouth 2 (two) times a day 5 Active amLODIPine (NORVASC) 5 mg tablet Take 1 tablet (5 mg total) by mouth daily 5 Active cyclobenzaprine (FLEXERIL) 10 mg tablet Take 1 tablet (10 mg total) by mouth 2 (two) times a day as needed 5 Active naproxen (NAPROSYN) 250 mg tablet Take 1 tablet (250 mg total) by mouth 5 Active dapagliflozin propanediol (FARXIGA) 10 mg tablet Take 1 tablet (10 mg total) by mouth daily Active semaglutide (Rybelsus) 14 mg tablet Take 1 tablet (14 mg total) by mouth daily Active furosemide (LASIX) 20 mg tabletIndication s:Other ascites,Cirrhosi s of liver with ascites, unspecified hepatic cirrhosis type (HCC) Take 1 tablet (20 mg total) by mouth daily 30 tablet 11 5 02/12/20 26 Active spironolactone (ALDACTONE) 50 mg tabletIndication s:Cirrhosis of liver with ascites, unspecified hepatic cirrhosis type (HCC) Take 1 tablet (50 mg total) by mouth daily 30 tablet 11 5 02/12/20 26 Active omeprazole (PriLOSEC) 20 mg capsule Take 1 capsule (20 mg total) by mouth daily for 7 days 7 capsule 5 Active Active Problems Problem Noted Date Diagnosed Date Hydropneumothorax 04/21/2025 Cirrhosis of liver with ascites 02/09/2025 Chest discomfort 09/25/2017 Encounters Date Type Department Care Team Description 04/23/20 Telephone [facility] Medicine Gastroenterology [facility] Medicine [facility] [place] [address] [place] [address] Darline Tolentino CMA 04/22/20 1:45 PM CDT Office Visit [facility] Medicine Surgery [address] [facility] Floor 5 [place] [address] Guido Mcgrath MD Hydropneumothorax (Primary Dx) 04/22/20 Telephone [facility] Medicine Gastroenterology [address] [facility] Medicine [facility] [place] [address] [place] [address] Rossy Hernandez 04/13/20 Documentation [facility] Medicine Gastroenterology [address] [facility] Medicine [facility] [place] [address] [place] [address] Alfonso Gardner, ZAKIA 04/11/20 Results Follow-Up [facility] Medicine Gastroenterology [facility] [address] [place] [address] [place] [address] Danny Gomez MD EGVesta 08/22/20 25 3:01 PM CDT Anesthesia Event [facility] [address] [address] Christina Fleming MD Mehta, Bhavi Deepak, MD 04/10/20 2:30 PM CDT - 04/10/20 3:00 PM CDT Surgery [address] [address] Danny Gomez MD ESOPHAGOGASTRODUODENOSCOPY BAND LIGATION 04/10/20 2:14 PM CDT - 04/10/20 4:30 PM CDT Hospital Encounter [address] [address] Danny Gomez MD Discharge Disposition: Discharge to home or self care 04/10/20 25 Orders Only [facility] Medicine Gastroenterology [address] [place] [address] [place] [address] Danny Gomez MD 04/10/20 25 Telephone [facility] Medicine Gastroenterology [address] [place] [address] Alfonso Gardner RN 04/09/20 25 Orders Only [facility] Medicine Gastroenterology [address] [place] [address] Alfonso Gardner, RN Trapped lung (Primary Dx) 04/08/20 25 Documentation [facility] Medicine Gastroenterology [address] [place] [address] Danny Gomez MD 04/03/20 25 Telephone [facility] Specialty Services [facility] [place] [address] Bernadette Paz RN GI PROCEDURE 7 DAY PRE CALL 03/27/20 25 Documentation [facility] Medicine Gastroenterology [address] [place] [address] Alfonso Gardner RN [facility] 03/16/20 25 Orders Only [facility] Scanning, Provider 03/03/20 Telephone [facility] [address] [place] [address] [place] [address] Alfonso Gardner, RN 02/27/20 Telephone [facility] [address] [place] [address] Rossy Hernandez 02/25/20 Results Follow-Up [facility] [address] [place] [address] [place] [address] Danny Gomez MD Comprehensive metabolic panel 02/24/20 Telephone [facility] [address] [place] [address] [place] [address] Alfonso Gardner, RN 02/12/20 Documentation [facility] [address] [place] [address] Alfonso Gardner, RN 02/12/20 Results Follow-Up [facility] [address] [place] [address] [place] [address] [place] [address] Body Outside Consult 02/11/20 Results Follow-Up [facility] [address] [place] [address] [place] [address] [place] [address] Danny Gomez MD CBC with auto differential, Hepatitis A antibody, total Blood, Ferritin, Additional followed-up results: 6 02/10/20 12:59 PM CDT - 02/10/20 11:59 PM CDT Hospital Encounter [facility] ([facility]) [address] [place] [address] Diagnosis unknown Discharge Disposition: Discharge to home or self care 02/10/20 10:15 AM CDT Lab [facility] [address] [place] [address] Cirrhosis of liver with ascites, unspecified hepatic cirrhosis type (HCC) 02/10/20 25 9:00 AM CDT Office Visit [facility] Medicine Gastroenterology [address] [place] [address] [place] [address] Danny Gomez MD Cirrhosis of liver with ascites, unspecified hepatic cirrhosis type (HCC) (Primary Dx) from Last 3 Months Surgical History Surgery Date Site/Laterality Comments EYE SURGERY UMBILICAL HERNIA REPAIR THORACENTESIS Medical History Medical History Date Comments Diabetes mellitus (HCC) Hyperlipidemia Hypertension Cirrhosis (HCC) Family History Medical History Relation Name Comments COPD Father Cancer Mother Relation Name Status Comments Father Mother Social History Tobacco Use Types Packs/Day Years Used Date Smoking Tobacco: Never Smokeless Tobacco: Never Tobacco Cessation:Counseling Given: Not Answered Alcohol Use Standard Drinks/Week Comments Never 0 (1 standard drink = 0.6 oz pur e alcohol) AUDIT-C Answer Date Recorded Q1: How often do you have a drink containing alcohol? Never 04/10/2025 Q2: How many drinks containi ng alcohol do you have on a typical day when you are drinking? Patient does not drink Q3: How often do you have si x or more drinks on one occasion? Never 04/10/2025 Personal Safety Answer Date Recorded Have you ever been in or are you currently in a harmful physical or emotional relationship or is someone making you feel afraid or unsafe? Denies 04/10/2025 Sex and Gender Information Value Date Recorded Sex Assigned at Not on file Legal Sex Male 3:09 AM [employer] Gender Identity Not on file Sexual Orientation Not on file Obstetrics History Last Filed Vital Signs Vital Sign Reading Time Taken Comments Blood Pressure 132/71 04/22/2025 2:17 PM CDT Pulse 95 04/22/2025 2:17 PM CDT Temperature 36.7 C (98 F) 04/22/2025 2:17 PM CDT Respiratory Rate 18 04/22/2025 2:17 PM CDT Oxygen Saturation 96% 04/22/2025 2:17 PM CDT Inhaled Oxygen Concentration - - Weight 102.3 kg (225 lb 9.6 oz) 04/22/2025 2:16 PM CDT Height 180.3 cm (5' 11) 04/10/2025 2:41 PM CDT Body Mass Index 31.46 04/10/2025 2:41 PM CDT Plan of Treatment Health Maintenance Due Date Last Done Comments Colon Cancer Screening-Colonoscopy 1960 Depression Screening 1960 Hepatitis C Screening 1960 Prostate Cancer Screening-PSA 1960 DTaP/Tdap/Td Vaccine (1 - Tdap) 1971 Hepatitis B Screening 1978 Regular Well Visit/Exam 18-64 1978 Pneumococcal vaccine <65 (1 of 2 - PCV) 1979 Zoster Vaccine (1 of 2) 2010 Covid-19 Vaccine (3 - season) 04/20/202506/2022, 02/04/2022 Influenza Vaccine (#1) 2025 Procedures Procedure Name Priority Date/Time Associated Diagnosis Comments ESOPHAGOGASTRODUODENOSCOPY B AND LIGATION 04/10/2025 3:03 PM CDT Cirrhosis of liver with ascites, unspecified hepatic cirrhosis type (HCC) POCT GLUCOSE DEVICE Routine 04/10/2025 2:44 PM CDT EGD 04/10/2025 2:41 PM CDT SCAN - RADIOLOGY/IMAGING 03/16/2025 COMPREHENSIVE METABOLIC PANEL Routine 11:41 AM CDT Other ascites Cirrhosis of liver with ascites, unspecified hepatic cirrhosis type (HCC) CT BODY OUTSIDE CONSULT Routine 02/10/20 1:00 PM CDT Diagnosis unknown EGFR Routine 02/09/2025 9:32 AM CDT Cirrhosis of liver with ascites, unspecified hepatic cirrhosis type (HCC) DIFFERENTIAL AUTO Routine 02/09/2025 9:32 AM CDT Cirrhosis of liver with ascites, unspecified hepatic cirrhosis type (HCC) COMPREHENSIVE METABOLIC PANEL Routine 9:32 AM CDT Cirrhosis of liver with ascites, unspecified hepatic cirrhosis type (HCC) PROTIME-INR Routine 02/09/2025 9:32 AM CDT Cirrhosis of liver with ascites, unspecified hepatic cirrhosis type (HCC) [id number], TUMOR MARKER Routine 02/09/2025 9:32 AM CDT Cirrhosis of liver with ascites, unspecified hepatic cirrhosis type (HCC) FERRITIN Routine 02/09/2025 9:32 AM CDT Cirrhosis of liver with ascites, unspecified hepatic cirrhosis type (HCC) [id number] PHENOTYPE Routine 9:32 AM CDT Cirrhosis of liver with ascites, unspecified hepatic cirrhosis type (HCC) CBC WITH AUTO DIFFERENTIAL Routine 02/09 9:32 AM CDT Cirrhosis of liver with ascites, unspecified hepatic cirrhosis type (HCC) HEPATITIS A ANTIBODY, TOTAL Routine 01/19 9:32 AM CDT Cirrhosis of liver with ascites, unspecified hepatic cirrhosis type (HCC) from Last 3 Months Results * POCT glucose (04/10/2025 2:44 PM CDT) Glucose, POC 122 70 - 199 mg/dL Blood 04/10/2025 2:44 PM CDT 04/10/2025 2:44 PM CDT us Danny Gomez MD LAB POCT ORDERABLES - MARCO A CE Final Result [facility] Department [place] [address] * EGD (04/10/2025 2:41 PM CDT) Anatomical Region Laterality Modality Other Narrative Procedure Note Danny Gomez MD - 04/10/2025 2:41 PM CDT GI ENDOSCOPY [facility] Patient Name: Salvatore Thomas Procedure Date: 04/10/2025 2:41 PM Date of : 1960 Admit Type: Outpatient Age: 64 Gender: Male Attending MD: Danny Gomez M.D., Room: [facility] ENDOSCOPY ROOM 8 Note Status: Finalized Procedure: Upper GI endoscopy Indications: Variceal screening (no known varices or priorbleeding) Referring MD: Danny Gomez M.D. Providers: Danny Gomez M.D. Medicines: Monitored Anesthesia Care Complications: No immediate complications. Estimated Blood Loss: Estimated blood loss: none. Procedure: Pre-Anesthesia Assessment: - Immediately prior to administration ofmedications, the patient was re-assessed for adequacy to receive sedatives. The benefits, risks, and alternatives to theprocedure and sedation were discussed and informed consentwas obtained. The scope was passed under direct vision. The GIF [id number] endoscope was introducedthrough the mouth, and advanced to the second part ofduodenum. Findings: The examined duodenum was normal. Mild portal hypertensive gastropathy was found in the gastric fundusand in the gastric body. Grade III varices were found in the lower third of the esophagus. Two bands were successfully placed with complete eradication, resultingin deflation of varices. There was no bleeding during and at the end ofthe procedure. Impression: - Normal examined duodenum. - Portal hypertensive gastropathy. - Grade III esophageal varices. Completelyeradicated. Banded. - No specimens collected. - (blood pressure 97/62; will hold off starting a nonselective beta loc) Recommendation: - Soft food today. May resume regular diet inmorning of April 11, 2025. - You may resume the apixaban on April 15, 2025. - Repeat upper endoscopy in 12 weeks forretreatment. Attending Participation: I personally performed the entire procedure. Electronically signed by Danny Gomez M.D. Danny Gomez M.D. 04/10/2025 3:29:38 PM . Number of Addenda: 0 Note Initiated On: 04/10/2025 2:41 PM Danny Gomez MD ENDOSCOPY PROCEDURES Final Result * SCAN - RADIOLOGY/IMAGING (03/16/2025) Anatomical Region Laterality Modality Other us Provider Scanning Edited Result - Final * (ABNORMAL) Comprehensive metabolic panel (02/23/2025 11:41 AM CDT) Glucose 108(H) 65 - 99 mg/dL [employer] Comment: Fasting reference interval For someone without known diabetes, a glucose value between 100 and 125 mg/dL is consistent with prediabetes and should be confirmed with a follow-up test. BUN 19 7 - 25 mg/dL [employer] Lila Irene Creatinine 0.86 0.70 - 1.35 mg/dL [employer] [facility] eGFR 97 > OR = 60 mL/min/1.7 3m2 [employer] Lila Irene BUN/creat ratio SEE NOTE: 6 - 22 (calc) [employer] Comment: Not Reported: BUN and Creatinine are within reference range. Sodium 140 135 - 146 mmol/L [facility] Potassium, pl 4.7 3.5 - 5.3 mmol/L [facility] Chloride 104 98 - 110 mmol/L [facility] CO2 25 20 - 32 mmol/L [facility] Calcium 9.8 8.6 - 10.3 mg/dL [facility] Protein, sr 7.1 6.1 - 8.1 g/dL [facility] Albumin 3.9 3.6 - 5.1 g/dL [facility] GLOBULIN 3.2 1.9 - 3.7 g/dL (calc) [facility] Alb/glob ratio 1.2 1.0 - 2.5 (calc) [employer] Bilirubin, total 1.7(H) 0.2 - 1.2 mg/dL [employer] Alk phos 100 35 - 144 U/L [employer] AST 34 10 - 35 U/L [employer] ALT (SGPT) 33 9 - 46 U/L [email or web address] Blood 02/23/2025 11:4 1 AM CDT 02/23/2025 11:41 AM CDT Narrative [facility] - 02/24/2025 1:01 AM CDT FASTING:YES FASTING: YES us Danny Gomez MD LAB BLOOD ORDERABLES Final Result [facility] [address] [place] [address] * CT Body Outside Consult (02/09/2025 1:00 PM CDT) Anatomical Region Laterality Modality Body N/A Computed Tomogra phy 02/10/2025 9:29 AM CDT Impressions 02/10/2025 9:29 AM CDT 1. Small to moderate right hydropneumothorax, with the small pneumothorax component potentially related to reported recent thoracentesis. 2. Cirrhosis with stigmata of portal hypertension including splenomegaly, esophageal varices, a recanalized umbilical vein, and splenorenal shunt. 3. Nonocclusive thrombus within the superior mesenteric, splenic, and main portal veins. The findings, conclusions and recommendations within this report do not replace the initial findings, conclusions and recommendations made at the facility where the study was performed based upon the imaging and clinical condition at that time. Comparison with the prior report and clinical history is necessary. The provided images may or may not represent the havasupai source data set and thus may contain changes that may lower the accuracy of this second-opinion interpretation. Electronically signed by: David Melo M.D. Narrative 02/10/2025 9:29 AM CDT EXAMINATION: RADIOLOGY CONSULTATION ON OUTSIDE IMAGING STUDY STUDY INITIALLY PERFORMED: 01/23/2025 at [facility]. TYPE OF STUDY: Multiple CT images of the chest, abdomen and pelvis with intravenous contrast are provided at the time of this interpretation. CONTRAST ROUTE: Contrast was administered via the intravenous route. The protocol was adequate to address the clinical question. The outside final report was not available at the time of this second opinion interpretation. TYPE OF CONSULTATION: Consult on outside imaging study with images submitted through Outside Image Sharing Service DATE OF CONSULTATION: 02/10/2025 9:18 AM HISTORY: Cirrhosis and portomesenteric venous thrombosis; reported history of recent thoracentesis COMPARISON: None available. FINDINGS: There is a small to moderate right hydropneumothorax. Rounded atelectasis in the right lower lobe mass. 4 mm right upper lobe peripheral nodule on series 6 image 68. Mild left basilar atelectasis but otherwise clear left lung. No supraclavicular, axillary, mediastinal, or hilar lymphadenopathy. Mild cardiomegaly without pericardial effusion. No pulmonary embolism or acute aortic syndrome. The thoracic aorta is normal. There is a small hiatal hernia. The liver is cirrhotic. No focal liver lesions or intrahepatic ductal dilation. The right and left portal veins are patent. There is small volume nonocclusive thrombus in the main portal vein on series 5 image 40. There is a moderate volume of nonocclusive thrombus within the upper superior mesenteric vein on series 5 image 72. There are foci of thrombus within the splenic vein on series 5 image 58 and series 5 image 60. There is a splenorenal shunt. There is recanalization of the umbilical vein. The gallbladder and common bile duct are normal. The spleen is enlarged to approximately 21 cm. The adrenal glands are normal. There are scattered simple bilateral renal cysts without hydronephrosis. Extensive esophageal varices are present. The stomach and duodenum are normal. Urinary bladder is normal. The prostate gland is normal size. There is small volume pelvic ascites. Colonic diverticulosis without diverticulitis or obstruction. There is mild portal hypertensive colopathy of the cecum. The appendix is normal. Small bowel loops are normal caliber. Mild mesenteric and retroperitoneal edema. Umbilical hernia mesh repair. Prominent periportal lymph nodes are likely reactive to chronic liver disease. No retroperitoneal, pelvic, or lymphadenopathy. Mild atherosclerosis without aneurysm. Mild chronic-appearing inferior endplate compression of L1 and thoracolumbar degenerative disc disease. Procedure Note David Melo MD - 02/10/2025 EXAMINATION: RADIOLOGY CONSULTATION ON OUTSIDE IMAGING STUDY STUDY INITIALLY PERFORMED: 01/23/2025 at [facility]. TYPE OF STUDY: Multiple CT images of the chest, abdomen and pelvis with intravenous contrast are provided at the time of this interpretation. CONTRAST ROUTE: Contrast was administered via the intravenous route. The protocol was adequate to address the clinical question. The outside final report was not available at the time of this second opinion interpretation. TYPE OF CONSULTATION: Consult on outside imaging study with images submitted through Outside Image Sharing Service DATE OF CONSULTATION: 02/10/2025 9:18 AM HISTORY: Cirrhosis and portomesenteric venous thrombosis; reported history of recent thoracentesis COMPARISON: None available. FINDINGS: There is a small to moderate right hydropneumothorax. Rounded atelectasis in the right lower lobe mass. 4 mm right upper lobe peripheral nodule on series 6 image 68. Mild left basilar atelectasis but otherwise clear left lung. No supraclavicular, axillary, mediastinal, or hilar lymphadenopathy. Mild cardiomegaly without pericardial effusion. No pulmonary embolism or acute aortic syndrome. The thoracic aorta is normal. There is a small hiatal hernia. The liver is cirrhotic. No focal liver lesions or intrahepatic ductal dilation. The right and left portal veins are patent. There is small volume nonocclusive thrombus in the main portal vein on series 5 image 40. There is a moderate volume of nonocclusive thrombus within the upper superior mesenteric vein on series 5 image 72. There are foci of thrombus within the splenic vein on series 5 image 58 and series 5 image 60. There is a splenorenal shunt. There is recanalization of the umbilical vein. The gallbladder and common bile duct are normal. The spleen is enlarged to approximately 21 cm. The adrenal glands are normal. There are scattered simple bilateral renal cysts without hydronephrosis. Extensive esophageal varices are present. The stomach and duodenum are normal. Urinary bladder is normal. The prostate gland is normal size. There is small volume pelvic ascites. Colonic diverticulosis without diverticulitis or obstruction. There is mild portal hypertensive colopathy of the cecum. The appendix is normal. Small bowel loops are normal caliber. Mild mesenteric and retroperitoneal edema. Umbilical hernia mesh repair. Prominent periportal lymph nodes are likely reactive to chronic liver disease. No retroperitoneal, pelvic, or lymphadenopathy. Mild atherosclerosis without aneurysm. Mild chronic-appearing inferior endplate compression of L1 and thoracolumbar degenerative disc disease. IMPRESSION: 1. Small to moderate right hydropneumothorax, with the small pneumothorax component potentially related to reported recent thoracentesis. 2. Cirrhosis with stigmata of portal hypertension including splenomegaly, esophageal varices, a recanalized umbilical vein, and splenorenal shunt. 3. Nonocclusive thrombus within the superior mesenteric, splenic, and main portal veins. The findings, conclusions and recommendations within this report do not replace the initial findings, conclusions and recommendations made at the facility where the study was performed based upon the imaging and clinical condition at that time. Comparison with the prior report and clinical history is necessary. The provided images may or may not represent the havasupai source data set and thus may contain changes that may lower the accuracy of this second-opinion interpretation. Electronically signed by: David Melo M.D. Danny Gomez MD IMG CT PROCEDURES Final Re sult * eGFR (02/09/2025 9:32 AM CDT) eGFR >90 >=60 mL/min/1. 73 m2 Comment: Interpretive Data Reference Interval Normal >/= 90 mL/min/1.73m2 Mildly decreased* 60 - 89 mL/min/1.73m2 Mildly to moderately decreased 45 - 59 mL/min/1.73m2 Moderately to severely decreased 30 - 44 mL/min/1.73m2 Severely decreased 15 - 29 mL/min/1.73m2 Kidney Failure < 15 mL/min/1.73m2 *Relative to young adult level Estimated glomerular filtration rate is determined by the 2020 CKD-EPI equation recommended by the National Kid[employer] (A Unifying Approach to GFR Estimation: Recommendations of the NKF-ASK Task Force on Reassessing the Inclusion of Race in Diagnosing Kidney Disease, JASN 202). The CKD-EPI equation should not be used for patients with unstable renal function and has not been validated in children and those over 70. Current interpretive data was last reviewed 2021. Blood 02/09/2025 9:32 AM CDT 02/09/2025 9:55 AM CDT us Danny Gomez MD LAB BLOOD ORDERABLES Final Result [facility] Department [place] [address] * Differential, auto (02/09/2025 9:32 AM CDT) Neutrophil abs 2.14 1.50 - 6.50 K/cumm Imm gran abs 0.01 0.00 - 0.10 K/cumm [facility] Lymphocyte abs 0.85 0.80 - 3.30 K/cumm [facility] Monocyte abs 0.35 0.20 - 0.80 K[facility]umm [facility] Eosinophil abs 0.08 0.00 - 0.50 K/cumm [facility] Basophil abs 0.03 0.00 - 0.10 K/cumm [facility] Neutrophil pct 61.8 % [facility] Comment: Interpretive Data Percent cell count reference ranges are not reported, since discordance with absolute values may lead to misinterpretation of CBC data. Current Interpretive Data was last revised on 2017. Imm gran pct 0.3 % [facility] Comment: Interpretive Data Percent cell count reference ranges are not reported, since discordance with absolute values may lead to misinterpretation of CBC data. Current Interpretive Data was last revised on 2017. Lymphocyte pct 24.6 % [facility] Comment: Interpretive Data Percent cell count reference ranges are not reported, since discordance with absolute values may lead to misinterpretation of CBC data. Current Interpretive Data was last revised on 2017. Monocyte pct 10.1 % [facility] Comment: Interpretive Data Percent cell count reference ranges are not reported, since discordance with absolute values may lead to misinterpretation of CBC data. Current Interpretive Data was last revised on 2017. Eosinophil pct 2.3 % [facility] Comment: Interpretive Data Percent cell count reference ranges are not reported, since discordance with absolute values may lead to misinterpretation of CBC data. Current Interpretive Data was last revised on 2017. Basophil pct 0.9 % [facility] Comment: Interpretive Data Percent cell count reference ranges are not reported, since discordance with absolute values may lead to misinterpretation of CBC data. Current Interpretive Data was last revised on 2017. Blood 02/09/2025 9:32 AM CDT 02/09/2025 9:55 AM CDT Danny Gomez MD LAB BLOOD ORDERABLES Final Result [facility] Department [place] [address] * Ylxtt-4-ncvmzzsnfnf phenotype (02/09/2025 9:32 AM CDT) Pathologist [facility] alpha-1 antitrypsin 173 100 - 190 mg/dL [facility] Comment: ADDITIONAL INFORMATION Method: Nephelometry Test Performed by: [address] [address] Outside Production Inspector: Savita England Ph.D.; CLIA# [id number] alpha-1 antitrypsin phenotype MM bands [facility] Comment: A single M isoform is detected. In the context of a normal kuewu-5-pvkzywjbpwm concentration, this is consistent with an MM phenotype. ADDITIONAL INFORMATION Method: Isoelectric Focusing, This assay identifies the phenotype of the circulating tdyly-5-uvhyxsbrrth (A1A) protein. If the patient is on replacement therapy or has been recently transfused, the phenotype will detect patient and replacement or transfused plasma A1A protein. This test also cannot detect a null allele which could be responsible for an A1A deficiency. Blood 02/09/2025 9:32 AM CDT 02/09/2025 10:41 AM CDT us Danny Gomez MD LAB BLOOD ORDERABLES Final Result [facility] [place] [address] [place] [facility] * (ABNORMAL) CBC with auto differential (02/09/2025 9:32 AM CDT) [facility] WBC 3.46(L) 3.80 - 9.90 K/cumm Hgb 13.3 13.0 - 17.5 g/dL [facility] Hct 40.0 38.9 - 50.3 % [facility] Plt 57(L) 150 - 400 K/cumm [facility] MPV 11.6 9.1 - 12.3 fL [facility] RBC 4.21(L) 4.30 - 5.80 M/cumm [facility] MCV 95.0 81.3 - 96.4 fL [facility] MCH 31.6 27.1 - 33.3 pg [facility] MCHC 33.3 32.3 - 35.7 g/dL [facility] RDW CV 14.1 11.1 - 14.9 % [facility] RDW SD 49.0(H) 35.7 - 48.1 fL [facility] NRBC abs 0.00 0.00 - 0.01 K/cumm [facility] Blood 02/09/2025 9:32 AM CDT 02/09/2025 9:55 AM CDT Danny Gomez MD LAB BLOOD ORDERABLES Final Result [facility] [place] [address] * (ABNORMAL) Hepatitis A antibody, total Blood (02/09/2025 9:32 AM CDT) Hep A total Reactive(A ) Nonreactive Blood 02/09/2025 9:32 AM CDT 02/09/2025 9:55 AM CDT Danny Gomez MD LAB MICROBIOLOGY - GENERAL ORDERABLES Final Result Performing Organization Address [facility] de Phone Number [facility] [place] [address] * Somkn-1-Mzgozpmrpiu, Tumor Marker (02/09/2025 9:32 AM CDT) alpha Fetoprotein <2.0 <=8.3 ng/mL Comment: Interpretive Data The Wagner AFP assay procedure was used. Results from different manufacturers or methods may not be comparable. Serial testing should be performed using the same method. 0-1 month. AFP concentrations may reach or exceed 100,000 ng/mL after depending on gestational age and weight. 1-3 months 50 1000 ng/ml 3-6 months 10 500 ng/ml 6-12 months 3.0 100 ng/ml >1 year 0.0 8.3 ng/ml References Karolina Y. et al. J. Ped Surg 1978;13:155-156 Chaim S. et al. Clin Chem Lab Med 2018;57:783-797 Crow Soares et al. Clin Chem 2014;0186-8315. Current interpretive data was last revised 2022. Blood 02/09/2025 9:32 AM CDT 02/09/2025 9:55 AM CDT Danny Gomez MD LAB BLOOD ORDERABLES Final Result Performing Organization Address City/[facility]/[place] [address] * (ABNORMAL) Protime-INR (02/09/2025 9:32 AM CDT) PT 13.3(H) 9.7 - 13.0 sec INR 1.23(H) 0.90 - 1.20 [facility] Comment: Interpretive data Oral anticoagulant therapeutic ranges: Venous thromboembolism prophylaxis or treatment: 2.0-3.0 CARDIOLOGY Standard range: 2.0-3.0 High-intensity range: 2.5-3.5 Refer to indication-specific guidelines for appropriate target ranges for prosthetic heart valve replacement. Current interpretive data was last revised on 2019. Blood 02/09/2025 9:32 AM CDT 02/09/2025 9:50 AM CDT Danny Gomez MD LAB BLOOD ORDERABLES Final Result Performing Organization Address City/[facility] [place] [address] * Ferritin (02/09/2025 9:32 AM CDT) Pathologist [facility] Ferritin 72 30 - 400 ng/mL Blood 02/09/2025 9:32 AM CDT 02/09/2025 9:55 AM CDT Danny Gomez MD LAB BLOOD ORDERABLES Final Result Performing Organization Address City/State/[facility] [place] [address] * (ABNORMAL) Comprehensive metabolic panel (02/09/2025 9:32 AM CDT) Pathologist [facility] Sodium 144 135 - 145 mmol/L Potassium, pl 4.7 3.3 - 4.9 mmol/L [facility] Chloride 110 97 - 110 mmol/L [facility] CO2 25 22 - 32 mmol/L [facility] Anion gap 9 2 - 15 mmol/L [facility] BUN 14 6 - 25 mg/dL [facility] Creatinine 0.77(L) 0.80 - 1.30 mg/dL [facility] Glucose 81 70 - 199 mg/dL [facility] Comment: Interpretive Data Fasting glucose >/= 126 mg/dl is diagnostic for diabetes. Fasting is defined as no caloric intake for at least 8 hours. Fasting glucose between 100 mg/dl to 125 mg/dl is diagnostic of prediabetes. In a patient with classic symptoms of hyperglycemia or hyperglycemic crisis, a random glucose >/= 200 mg/dl is diagnostic for diabetes. In the absence of unequivocal hyperglycemia, results should be confirmed by repeat testing. The classification and Diagnosis of Diabetes Diabetes Care 2021; 46: S19-S40. Current interpretive data was last revised 2022. Calcium 9.3 8.5 - 10.3 mg/dL [facility] Bilirubin, total 0.8 0.1 - 1.2 mg/dL [facility] Protein, pl 7.4 6.5 - 8.5 g/dL [facility] Albumin 3.6 3.5 - 5.0 g/dL [facility] Alk phos 118 40 - 130 Units/L [facility] ALT 30 7 - 55 Units/L [facility] AST 43 10 - 50 Units/L [facility] Blood 02/09/2025 9:32 AM CDT 02/09/2025 9:55 AM CDT us Danny Gomez MD LAB BLOOD ORDERABLES Final Result [facility] Department [place] [address] from Last [address] [place] [address] MEDICARE [facility] [place] [address] [facility] MEDIC[facility] ADVANTAGE Advance Directives For more information, please contact: [phone] * Full Code (Latest Code Status on File) Date Activated Date Inactivated Comments 04/10/2025 2:27 PM 04/10/2025 8:35 PM Care Teams 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
--- OUTSIDE RECORDS SUMMARY | 2025-05-11 12:03 | XMS_ITS | Clinical Summary ---
Author Organization [facility] Rubina goldstein [facility] Address [address] [address] Care Team Providers Care Railcar Carpenter Name Role Phone Unavailable Primary Care Provider [...] Take 5 mg by mouth daily. 01/23/20 Active rivaroxaban (Xarelto) 20 mg Tablet Take 1 Tablet (20 mg) by mouth daily with supper. Take after completing 21 days of 15 mg twice daily with food. 30 Tablet 1 03/06/20 Active Active Problems No known active problems Encounters Date Type Department Care Team Description 05/06/2025 External Device Data STL ABSTRACTION Provider, Abstract 05/05/2025 External Device Data STL ABSTRACTION Provider, Abstract 03/10/2025 Orders Only [facility] Oncology and Hematology [facility] [address] [place] [address] Mookie Garcia MD 03/06/2025 11:45 AM CDT Office Visit [facility] Oncology and Hematology [facility] [address] [place] [address] Mookie Garcia MD Mesenteric vein thrombosis (Primary Dx) from Last 3 Months Family [...] on file 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 [address] [place] [address] Mookie Garcia MD [address] [facility] [address] [place] [address] Health Maintenance Due Date Last [...] AND FOLATE (02/23/2025 11:44 AM CDT) Pathologist [facility] VITAMIN B12 391 200 - 1100 pg/mL [facility] Comment: Please Note: Although the reference [...] Borderline: 3.4-5.4 Normal: >5.4 Test Performed at: [facility] [address] [place] [address] Mackenzie Byrnes MD Blood 02/23/2025 11:4 4 AM CDT 02/23/2025 11:45 AM CDT Mookie Garcia MD CHEMISTRY ORDERABLES Final Resu lt [facility] [phone] [facility] [address] [place] [phone] * IRON, TIBC, AND PERCENT SATURATION (02/23/2025 11:44 AM CDT) [facility] IRON 149 50 - 180 mcg/dL [facility] TIBC 366 250 - 425 mcg/dL (calc) [facility] IRON % SATURATION 41 20 - 48 % (calc) [facility] Comment: Test Performed at: [facility] [address] [place] [address] [place] [address] Mackenzie Byrnes MD Blood 02/23/2025 11:4 4 AM CDT 02/23/2025 11:45 AM CDT Mookie Garcia MD CHEMISTRY ORDERABLES Final Resu lt Performing Organization Address City/[facility]/ZIP Co de Phone Number [facility] [phone] [address] * FERRITIN (02/23/2025 11:44 AM CDT) Pathologist [facility] FERRITIN 63 24 - 380 ng/mL [facility] Comment: Test Performed at: [facility] [address] [place] [address] [place] [address] Mackenzie Byrnes MD Blood 02/23/2025 11:4 4 AM CDT 02/23/2025 11:45 AM CDT Mookie Garcia MD CHEMISTRY ORDERABLES Final Resu lt Performing Organization Address [facility] Co de Phone Number [facility] [phone] [facility] [address] from Last 3 Months Insurance [facility] PPO [facility]
--- OUTSIDE RECORDS SUMMARY | 2025-05-11 12:03 | XMS_ITS | Encounter Summary ---
Author Organization [facility] Address [address] [place] [address] Phone Care Team Providers Care Aeronautical Inspector Name Role Phone Dalton Oliva MD Primary Care Provide r Encounter Details Date Type Department Care Team (Late st Contact Info) Description 04/11/2025 Results Follow-Up [facility] Gastroenterology [address] [facility] 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
--- OUTSIDE RECORDS SUMMARY | 2025-05-11 12:03 | XMS_ITS | Encounter Summary ---
Author Organization [facility] Address [address] [place] [address] Phone Care Team Providers Care Pediatric Psychiatrist Name Role Phone Dalton Oliva MD Primary Care Provide r Encounter Details Date Type Department Care Team (Late st Contact Info) Description 03/16/2025 Orders Only [facility] Scanning, Provider Social History Tobacco Use Types Packs/Day Years Used Date Smoking Tobacco: Never Smokeless Tobacco: Never Alcohol Use Standard Drinks/Week Comments No 0 (1 standard drink = 0.6 oz pur e alcohol) Sex and Gender Information Value Date Recorded Sex Assigned at Not on file 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 Gender Identity Not on file Sexual Orientation Not on file documented as of this encounter Plan of Treatment Not on file documented as of this encounter Procedures Procedure Name Priority Date/Time Associated Diagnosis Comments SCAN - RADIOLOGY/IMAGING 03/16/2025 documented in this encounter Results * SCAN - RADIOLOGY/IMAGING (03/16/2025) Anatomical Region Laterality Modality Other us Provider Scanning Edited Result - Final documented in this encounter Visit Diagnoses Not on filedocumented in this encounter Care Teams Pediatric Psychiatrist Relationship Specialty Start Date End Date Dalton Oliva MD [address] [place] [address] PCP - General 09/03/13 documented as of this encounter
== END 2025-05-11 10:51 | disposition home or self-care (01) ==
PROVIDERS: PCP Emergency Medicine; Visit Provider Internal Medicine Hematology & Oncology
DX: K55.059 Acute (reversible) ischemia of intestine, part and extent unspecified (principal); K74.69 Other cirrhosis of liver
CPT/HCPCS: 74177; Q9967

== ENCOUNTER 2025-05-20 12:35 | Emergency (ER) | payer MEDICARE, SELFPAY ==
--- NOTE | ~2025-05-20 | US_ITS ---
EXAMINATION: US soft tissue LE RT DATE: 05/20/2025 14:23 INDICATION: Concern for abscess with draining the inferior right ankle TECHNIQUE: Multiple grayscale and Doppler ultrasound images of the region of concern at the anterior right ankle were obtained. COMPARISON: None FINDINGS: There is a focal region of skin thickening with hypoechoic subcutaneous edema at the region of concern. Centrally within the region of skin thickening is a 1.4 x 1.1 x 0.4 cm region with reticulated pattern of small amount of anechoic fluid interspersed amongst the subcutaneous fat within this region consistent with phlegmonous change without a discrete organized drainable abscess. IMPRESSION: 1. Small region of phlegmonous change and surrounding edema in the subcutaneous tissues anterior to the right ankle without an organized drainable abscess. Reviewed, dictated and finalized at location A.
--- OUTSIDE RECORDS SUMMARY | 2025-05-20 12:37 | XMS_ITS | Clinical Summary ---
Author Organization [facility] Rubina goldstein [facility] Address [address] [place] [address] Care Team Providers Care Logistics Vice President Name Role Phone Unavailable Primary Care Provider [...] food. 30 Tablet 1 03/06/20 25 Active Active Problems No known active problems Encounters Date Type Department Care Team Description 05/15/2025 Orders Only [facility] Oncology and Hematology - [place] [address] [place] [address] Mookie Garcia MD 05/06/2025 External Device Data STL ABSTRACTION Provider, Abstract 05/05/2025 External Device Data STL ABSTRACTION Provider, Abstract 03/10/2025 Orders Only [facility] Oncology and Hematology - [place] [address] [place] [address] Mookie Garcai MD 03/06/2025 11:45 AM CDT Office Visit [facility] Oncology and Hematology [facility] [address] [place] [address] Mookie Garcia MD Mesenteric vein thrombosis (Primary [...] on file 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 Gender Identity Not on file Sexual Orientation [...] Description 05/20/2025 2:00 PM CDT Office Visit [facility] Oncology and Hematology [facility] [address] [facility] [address] [place] [address] Mookie Garcia MD [address] [facility] [address] [place] [address] Health Maintenance Due Date Last [...] Procedure Name Priority Date/Time Associated Diagnosis Comments CT ABDOMEN PELVIS W CONTRAST Routine 05/11/2025 12:17 PM CDT BASIC METABOLIC PANEL Routine 03/06/2025 3:10 PM CDT CBC WITH DIFFERENTIAL Routine 03/06/2025 3:06 PM CDT VITAMIN B12 AND FOLATE Routine 02/23/2025 11:44 AM CDT Chronic anemia IRON, TIBC, AND PERCENT SATURATION Routine 02/23/2025 11:44 AM CDT Chronic anemia FERRITIN Routine 02/23/2025 11:44 AM CDT Chronic anemia from Last 3 Months Results * CT ABDOMEN PELVIS W CONTRAST (05/11/2025 12:17 PM CDT) Anatomical Region Laterality Modality Abdomen Computed Tomogra phy us Mookie Garcia MD CT ORDERABLES Final Result * BASIC METABOLIC PANEL (03/06/2025 3:10 PM CDT) Blood us Mookie Garcia MD CHEMISTRY ORDERABLES Final Resu lt * CBC WITH DIFFERENTIAL (03/06/2025 3:06 PM CDT) Blood us Mookie Garcia MD HEMATOLOGY ORDERABLES Final Res ult * VITAMIN B12 AND FOLATE (02/23/2025 11:44 AM CDT) Pathologist [facility] VITAMIN B12 391 200 - 1100 pg/mL [facility] Comment: Please Note: Although the reference [...] Borderline: 3.4-5.4 Normal: >5.4 Test Performed at: [facility] [address] [place] [address] Mackenzie Byrnes MD Blood 02/23/2025 11:4 4 AM CDT 02/23/2025 11:45 AM CDT Mookie Garcia MD CHEMISTRY ORDERABLES Final Resu lt [facility] [phone] [facility] [address] [place] [address] * IRON, TIBC, AND PERCENT SATURATION (02/23/2025 11:44 AM CDT) IRON 149 50 - 180 mcg/dL [facility] TIBC 366 250 - 425 mcg/dL (calc) [facility] IRON % SATURATION 41 20 - 48 % (calc) [facility] Comment: Test Performed at: [facility] [place] [address] Mackenzie Byrnes MD Blood 02/23/2025 11:4 4 AM CDT 02/23/2025 11:45 AM CDT Mookie Garcia MD CHEMISTRY ORDERABLES Final Resu lt Performing Organization Address [facility]/ZIP Co de Phone Number [facility] [phone] [facility] [address] [place] [address] [address] * FERRITIN (02/23/2025 11:44 AM CDT) FERRITIN 63 24 - 380 ng/mL [facility] Comment: Test Performed at: [facility] [address] [place] [address] Mackenzie Byrnes MD Blood 02/23/2025 11:4 4 AM CDT 02/23/2025 11:45 AM CDT Mookie Garcia MD CHEMISTRY ORDERABLES Final Resu lt Performing Organization Address City/[facility]/ZIP Co de Phone Number [facility] [phone] [facility] [address] [place] [address] from Last 3 Months Insurance [facility]
--- OUTSIDE RECORDS SUMMARY | 2025-05-20 12:37 | XMS_ITS | Encounter Summary ---
Author Organization [facility] STEF Morgan [facility] Address [address] [place] [address] Care Team Providers Care Credit Card Associate Name Role Phone Unavailable Primary Care Provider Unavailabl e Encounter Details Date Type Department Care Team (Late Contact Info) Description 05/15/2025 Orders Only [facility] Oncology and Hematology [place] [address] [place] [address] Mookie Garcia MD [address] [place] [address] Social History Tobacco Use Types Packs/Day Years Used Date Smoking Tobacco: Never Smokeless Tobacco: Never Alcohol Use Standard Drinks/Week Comments Yes 0 (1 standard drink = 0.6 oz pur e alcohol) Occasionally Sex and Gender Information Value Date Recorded Sex Assigned at Not on file 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 Gender Identity Not on file Sexual Orientation Not on file documented as of this encounter Plan of Treatment Upcoming Encounters Date Type Department Care Team (Late st Contact Info) Description 05/20/2025 2:00 PM CDT Office Visit [facility] Oncology and Hematology [place] [place] [address] Mookie Garcia MD [address] [place] [address] documented as of this encounter Procedures Procedure Name Priority Date/Time Associated Diagnosis Comments CT ABDOMEN PELVIS W CONTRAST Routine 05/11/2025 12:17 PM CDT documented in this encounter Results * CT ABDOMEN PELVIS W CONTRAST (05/11/2025 12:17 PM CDT) Anatomical Region Laterality Modality Abdomen Computed Tomogra phy us Mookie Garcia MD CT ORDERABLES Final Result documented in this encounter Visit Diagnoses Not on filedocumented in this encounter
--- OUTSIDE RECORDS SUMMARY | 2025-05-20 12:37 | XMS_ITS | Clinical Summary ---
Author Organization [facility] [address] Address [address] [place] [address] Care Team Providers Care Credit Analyst Name Role Phone Dalton Oliva MD Primary [...] Encounters Date Type Department Care Team Description 05/15/20 Telephone [facility] Medicine [facility] [address] [place] [address] [place] [address] Glenis Rose 05/14/20 25 Telephone [facility] Medicine Gastroenterology [address] [place] [address] [place] [address] [place] [address] Glenis Rose 04/23/20 Telephone [facility] Gastroenterology [address] [place] [address] [place] [address] [place] [address] Darline Tolentino CMA 04/22/20 1:45 PM CDT Office Visit [facility] Medicine Surgery [address] [facility] Floor 5 [place] [address] Guido Mcgrath MD Hydropneumothorax (Primary Dx) 04/22/20 Telephone [facility] Medicine [facility] [address] [place] [address] [place] [address] Rossy Hernandez 04/13/20 25 Documentation [facility] Medicine [facility] [address] [place] [address] [place] [address] Alfonso Gardner RN 04/11/20 Results Follow-Up [facility] Medicine Gastroenterology [address] [place] [address] Danny Gomez MD EGD 04/10/20 3:01 PM CDT Anesthesia Event [address] [address] Christina Fleming MD Mehta, Anayeli Weaver MD 04/10/20 2:30 PM CDT - 04/10/20 3:00 PM CDT Surgery [address] [address] Danny Gomez MD ESOPHAGOGASTRODUODENOSCOPY BAND LIGATION 04/10/20 2:14 PM CDT - 04/10/20 25 4:30 PM CDT Hospital Encounter [address] [address] Danny Gomez MD Discharge Disposition: Discharge to home or self care 04/10/20 25 Orders Only [facility] Medicine Gastroenterology [address] [place] [address] [place] [address] Danny Gomez MD 04/10/20 25 Telephone [facility] Medicine Gastroenterology [address] [place] [address] [place] [address] Alfonso Gardner, ZAKIA 04/09/20 25 Orders Only [facility] Medicine Gastroenterology [address] [place] [address] [place] [address] Alfonso Gardner, RN Trapped lung (Primary Dx) 04/08/20 25 Documentation [facility] Medicine Gastroenterology [address] [place] [address] [place] [address] [place] [address] Danny Gomez MD 04/03/20 25 Telephone [facility] Specialty Services [address] [place] [address] Bernadette Paz RN GI PROCEDURE 7 DAY PRE CALL 03/27/20 25 Documentation [facility] Gastroenterology [address] [place] [address] [place] [address] Alfonso Gardner, RN NELLY 03/16/20 25 Orders Only [facility] Scanning, Provider 03/03/20 25 Telephone [facility] Gastroenterology [address] [place] [address] [place] [address] Alfonso Gardner, RN 02/27/20 25 Telephone [facility] Gastroenterology [address] [place] [address] Rossy Hernandez 02/25/20 25 Results Follow-Up [facility] Gastroenterology [address] [place] [address] [place] [address] Danny Gomez MD Comprehensive metabolic panel 02/24/20 Telephone [facility] Gastroenterology [address] [place] [address] [place] [address] Alfonso Gardner, RN from Last 3 Months Surgical History Surgery Date Site/Laterality Comments EYE SURGERY UMBILICAL HERNIA REPAIR THORACENTESIS Medical History Medical History Date Comments Diabetes mellitus Hyperlipidemia Hypertension Cirrhosis (HCC) Family History Medical [...] on file 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 Gender Identity Not on file Sexual Orientation [...] ORDERABLES - MARCO A CE Final Result AUGUSTINA [facility] Department [place] [address] * EGD (04/10/2025 2:41 PM CDT) Anatomical Region Laterality Modality Other Narrative Procedure Note Danny Gomez MD - 04/10/2025 2:41 PM CDT GI ENDOSCOPY [facility] Patient Name: Salvatore Thomsa Procedure Date: 04/10/2025 2:41 PM Date of : 1960 Admit Type: Outpatient Age: 64 Gender: Male Attending MD: Danny Gomez M.D., Room: [facility] ENDOSCOPY ROOM 8 Note Status: Finalized Procedure: [...] passed under direct vision. The GIF H190 4870-081 endoscope was introducedthrough the mouth, and advanced [...] 0 Note Initiated On: 04/10/2025 2:41 PM Result [facility] Danny Gomez MD ENDOSCOPY PROCEDURES Final Result * SCAN - RADIOLOGY/IMAGING (03/16/2025) Anatomical Region Laterality Modality Other Provider Scanning Edited Result - Final * (ABNORMAL) Comprehensive metabolic panel (02/23/2025 11:41 AM CDT) Glucose 108(H) 65 - 99 mg/dL [facility] Comment: Fasting reference interval For someone without known diabetes, a glucose value between 100 and 125 mg/dL is consistent with prediabetes and should be confirmed with a follow-up test. BUN 19 7 - 25 mg/dL [facility] Irene Creatinine 0.86 0.70 - 1.35 mg/dL [facility] Irene eGFR 97 > OR = 60 mL/min/1.7 3m2 [employer] [facility] Irene BUN/creat ratio SEE NOTE: 6 - 22 (calc) ON24S pebbles Irene Comment: Not Reported: BUN and Creatinine are within reference range. Sodium 140 135 - 146 mmol/L [facility] [employer] [facility] pe[facility] Irene Potassium, pl 4.7 3.5 - 5.3 mmol/L ON24S [facility] Irene Chloride 104 98 - 110 mmol/L ON24S pebbles Irene CO2 25 20 - 32 mmol/L ON24S [facility] Irene Calcium 9.8 8.6 - 10.3 mg/dL [employer] [facility] Irene Protein, sr 7.1 6.1 - 8.1 g/dL ON24S pe[facility]les Irene Albumin 3.9 3.6 - 5.1 g/dL ON24S pebbles Irene GLOBULIN 3.2 1.9 - 3.7 g/dL (calc) [facility] Irene Alb/glob ratio 1.2 1.0 - 2.5 (calc) ON24Eddie Irene Bilirubin, total 1.7(H) 0.2 - 1.2 mg/dL [employer] pebbles Irene Alk phos 100 35 - 144 U/L [facility] AST 34 10 - 35 U/L [facility] ALT (SGPT) 33 9 - 46 U/L [facility] Blood 02/23/2025 11:4 1 AM CDT 02/23/2025 11:41 AM CDT Narrative [facility] - 02/24/2025 1:01 AM CDT FASTING:YES FASTING: YES Danny Gomez MD LAB BLOOD ORDERABLES Final Result [facility] [address] [place] [address] from Last 3 Months Insurance MEDICARE UHC [facility]IC[facility] Address: [address] [address] [place] [address] [facility] MEDICARE [facility] Address: [facility] [address] [place] [address] Advance Directives For more information, please contact: [phone] * Full Code (Latest Code Status on File) Date Activated Date Inactivated Comments 04/10/2025 2:27 PM 04/10/2025 8:35 PM Care Teams Credit Analyst Relationship Specialty Start Date End Date Dalton Oliva MD [address] [place] [address] PCP - General 09/03/13
--- OUTSIDE RECORDS SUMMARY | 2025-05-20 12:37 | XMS_ITS | Encounter Summary ---
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
--- OUTSIDE RECORDS SUMMARY | 2025-05-20 12:37 | XMS_ITS | Encounter Summary ---
Author Organization [facility] Address [address] [place] [address] Phone Care Team Providers Care Cash Register Balancer Name Role Phone Dalton Oliva MD Primary Care Provide r Encounter Details Date Type Department Care Team (Late st Contact Info) Description 04/11/2025 Results Follow-Up [facility] Gastroenterology [address] [facility] Medicine 12th [place] [address] [place] [address] Danny Gomez MD [address] [facility] [address] [place] [address] EGD Social History Tobacco Use Types Packs/Day [...] on file 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
--- OUTSIDE RECORDS SUMMARY | 2025-05-20 12:37 | XMS_ITS | Encounter Summary ---
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
[2025-05-20 12:46] VITALS: BP 127/58; PULSE 96; RESP 16; TEMP 36.8; O2SAT 99
--- OUTSIDE RECORDS SUMMARY | 2025-05-20 13:08 | XMS_ITS | Encounter Summary ---
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
--- OUTSIDE RECORDS SUMMARY | 2025-05-20 13:08 | XMS_ITS | Clinical Summary ---
Author Organization [facility]3] Rubina goldstein [facility] Address [address] [address] Care Team Providers Care Anthropologist Physical Name Role Phone Unavailable Primary Care Provider [...] Department Care Team Description 05/15/2025 Orders Only [facility]3] Oncology and Hematology - Josiah [address] [place] [address] Mookie Garcia MD 05/06/2025 External Device Data STL ABSTRACTION Provider, Abstract 05/05/2025 External Device Data STL ABSTRACTION Provider, Abstract 03/10/2025 Orders Only [facility]3] Oncology and Hematology - Josiah [address] [place] [address] Mookie Garcia MD 03/06/2025 11:45 AM CDT Office Visit [facility]3] Oncology and Hematology 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 [address] [facility] [address] [place] [address] Mookie Garcia MD [address] [facility] [address] [place] [address] Health Maintenance Due Date Last [...] AND FOLATE (02/23/2025 11:44 AM CDT) Pathologist [facility] VITAMIN B12 391 200 - 1100 pg/mL [facility] Comment: Please Note: Although the reference [...] Borderline: 3.4-5.4 Normal: >5.4 Test Performed at: [facility] [address] [place] [address] Mackenzie Byrnes MD Blood 02/23/2025 11:4 4 AM CDT 02/23/2025 11:45 AM CDT Mookie Garcia MD CHEMISTRY ORDERABLES Final Resu lt [facility] [phone] [facility] [address] [facility] [place] [address] * IRON, TIBC, AND PERCENT SATURATION (02/23/2025 11:44 AM CDT) IRON 149 50 - 180 mcg/dL [facility] TIBC 366 250 - 425 mcg/dL (calc) [facility] IRON % SATURATION 41 20 - 48 % (calc) [facility] Comment: Test Performed at: [facility] [place] [address] Mackenzie Byrnes MD Blood 02/23/2025 11:4 4 AM CDT 02/23/2025 11:45 AM CDT Mookie Garcia MD CHEMISTRY ORDERABLES Final Resu lt Performing Organization Address [facility]/ZIP Co de Phone Number [facility] [phone] [facility] [address] [place], [place] [address] [address] * FERRITIN (02/23/2025 11:44 AM CDT) FERRITIN 63 24 - 380 ng/mL [facility] Comment: Test Performed at: [facility] [address] [facility] [place] [address] Mackenzie Byrnes MD Blood 02/23/2025 11:4 4 AM CDT 02/23/2025 11:45 AM CDT Mookie Garcia MD CHEMISTRY ORDERABLES Final Resu lt Performing Organization Address City/[facility]/ZIP Co de Phone Number [facility] [phone] [facility] [address] [facility] [place] [address] from Last 3 Months Insurance [facility] PPO [facility]
--- OUTSIDE RECORDS SUMMARY | 2025-05-20 13:08 | XMS_ITS | Encounter Summary ---
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
--- OUTSIDE RECORDS SUMMARY | 2025-05-20 13:08 | XMS_ITS | Encounter Summary ---
Author Organization [facility] Address [address] [place] [address] Care Team Providers Care Health Equipment Servicer Name Role Phone Unavailable Primary Care Provider Unavailabl e Encounter Details Date Type Department Care Team (Late Contact Info) Description 05/15/2025 Orders Only [facility] Oncology and Hematology [address] [place] [address] Mookie Garcia MD [address] [place] [address] Social History Tobacco Use Types Packs/Day Years Used Date Smoking Tobacco: Never Smokeless Tobacco: Never Alcohol Use Standard Drinks/Week Comments Yes 0 (1 standard drink = 0.6 oz pur e alcohol) Occasionally Sex and Gender Information Value Date Recorded Sex Assigned at Not on file 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
--- OUTSIDE RECORDS SUMMARY | 2025-05-20 13:08 | XMS_ITS | Clinical Summary ---
Author Organization [facility] [address] Address [address] [place] [address] Care Team Providers Care Lumber Tailer Name Role Phone Dalton Oliva MD Primary [...] Type Department Care Team Description 05/15/20 Telephone [facility] Medicine Gastroenterology [facility] [address] [place] [address] [place] [address] Glenis Rose 05/14/20 25 Telephone [facility] Medicine Gastroenterology [address] [place] [address] [place] [address] [place] [address] Glenis Rose 04/23/20 Telephone [facility] Gastroenterology [address] [place] [address] [place] [address] [place] [address] Darline Tolentino CMA 04/22/20 1:45 PM CDT Office Visit [facility] Medicine Surgery [address] [facility] Floor 5 [place] [address] Guido Mcgrath MD Hydropneumothorax (Primary Dx) 04/22/20 Telephone [facility] Medicine Gastroenterology [facility] [address] [place] [address] [place] [address] Rossy Hernandez 04/13/20 25 Documentation [facility] Medicine Gastroenterology [facility] [address] [place] [address] [place] [address] Alfonso Gardner RN 04/11/20 Results Follow-Up [facility] Medicine Gastroenterology [address] [place] [address] Danny Gomez MD EGD 04/10/20 3:01 PM CDT Anesthesia Event [address] [address] Christina Fleming MD Mehta, Anayeli Weaver MD 04/10/20 2:30 PM CDT - 04/10/20 3:00 PM CDT Surgery [address] [address] Danny Gomez MD ESOPHAGOGASTRODUODENOSCOPY BAND LIGATION 04/10/20 2:14 PM CDT - 04/10/20 25 4:30 PM CDT Hospital Encounter [address] [address] Danny Gomez MD Discharge Disposition: Discharge to home or self care 04/10/20 25 Orders Only [facility] Medicine Gastroenterology [address] [place] [address] [place] [address] Danny Gomez MD 04/10/20 25 Telephone [facility] Medicine Gastroenterology [address] [place] [address] [place] [address] Alfonso Gardner, ZAKIA 04/09/20 25 Orders Only [facility] Medicine Gastroenterology [address] [place] [address] [place] [address] Alfonso Gardner, RN Trapped lung (Primary Dx) 04/08/20 25 Documentation [facility] Medicine Gastroenterology [address] [place] [address] [place] [address] [place] [address] Danny Gomez MD 04/03/20 25 Telephone [facility] Specialty Services [address] [place] [address] Bernadette Paz RN GI PROCEDURE 7 DAY PRE CALL 03/27/20 25 Documentation [facility] Gastroenterology [address] [place] [address] [place] [address] Alfonso Gardner, RN NELLY 03/16/20 25 Orders Only [facility] Scanning, Provider 03/03/20 25 Telephone [facility] Gastroenterology [address] [place] [address] [place] [address] Alfonso Gardner, RN 02/27/20 25 Telephone [facility] Gastroenterology [address] [place] [address] Rossy Hernandez 02/25/20 25 Results Follow-Up [facility] Gastroenterology [address] [place] [address] [place] [address] Danny Gomez MD Comprehensive metabolic panel 02/24/20 Telephone [facility] Gastroenterology [address] [place] [address] [place] [address] Alfonso Gardner, RN from Last 3 Months [...] on file 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 Gender Identity Not on file Sexual Orientation [...] - MARCO A CE Final Result [facility] [place] [address] * EGD (04/10/2025 2:41 PM CDT) Anatomical Region Laterality Modality Other Narrative Procedure Note Danny Gomez MD - 04/10/2025 2:41 PM CDT GI ENDOSCOPY NORTH Patient Name: Salvatore Thomas Procedure Date: 04/10/2025 2:41 PM Date of : 1960 Admit Type: Outpatient Age: 64 Gender: Male Attending MD: Danny Gomez M.D., Room: [facility] ENDOSCOPY ROOM 8 Note Status: Finalized [...] passed under direct vision. The GIF H190 [id number] endoscope was introducedthrough the mouth, and advanced [...] Note Initiated On: 04/10/2025 2:41 PM Result [facility] Danny Gomez MD ENDOSCOPY PROCEDURES Final Result * SCAN - RADIOLOGY/IMAGING (03/16/2025) Anatomical Region Laterality Modality Other Provider Scanning Edited Result - Final * (ABNORMAL) Comprehensive metabolic panel (02/23/2025 11:41 AM CDT) Glucose 108(H) 65 - 99 mg/dL [facility] Comment: Fasting reference interval For someone without known diabetes, a glucose value between 100 and 125 mg/dL is consistent with prediabetes and should be confirmed with a follow-up test. BUN 19 7 - 25 mg/dL [facility] Creatinine 0.86 0.70 - 1.35 mg/dL [facility] eGFR 97 > OR = 60 mL/min/1.7 3m2 [facility] BUN/creat ratio SEE NOTE: 6 - 22 (calc) [facility] Comment: Not Reported: BUN and Creatinine are within reference range. Sodium 140 135 - 146 mmol/L [facility] Potassium, pl 4.7 3.5 - 5.3 mmol/L [facility] Chloride 104 98 - 110 mmol/L [facility] CO2 25 20 - 32 mmol/L [facility] Calcium 9.8 8.6 - 10.3 mg/dL [facility] Protein, sr 7.1 6.1 - 8.1 g/dL [facility] Albumin 3.9 3.6 - 5.1 g/dL [facility] GLOBULIN 3.2 1.9 - 3.7 g/dL (calc) [facility] Alb/glob ratio 1.2 1.0 - 2.5 (calc) [facility] Bilirubin, total 1.7(H) 0.2 - 1.2 mg/dL [facility] Alk phos 100 35 - [...] ORDERABLES Final Result [facility] [address] [place] [address] from Last 3 Months Insurance MEDICARE UHC MEDICARE [facility] MEDIC[facility] Address: [address] [address] [place] [address] [facility] MEDICARE [facility] MEDIC[facility] Address: [facility] [address] [place] [address] Advance Directives For more information, please contact: [phone] * Full Code (Latest Code Status on File) Date Activated Date Inactivated Comments 04/10/2025 2:27 PM 04/10/2025 8:35 PM Care Teams Lumber Tailer Relationship Specialty Start Date End Date Dalton Oliva MD [address] [place] [address] PCP - General 09/03/13
--- OUTSIDE RECORDS SUMMARY | 2025-05-20 13:08 | XMS_ITS | Encounter Summary ---
Author Organization [facility] Address [address] [place] [address] Phone Care Team Providers Care Welder Plasma Arc Name Role Phone Dalton Oliva MD Primary Care Provide r Encounter Details Date Type Department Care Team (Late st Contact Info) Description 04/11/2025 Results Follow-Up [facility] Gastroenterology [address] [facility] Medicine 12th [place] [address] [place] [address] Danny Gomez MD [address] [facility] [address] [place] [address] EGD Social History Tobacco Use Types Packs/Day [...] on file 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
[2025-05-20 14:04] LABS: Hematocrit 34.5 % (42.0-52.0); Hemoglobin 11.4 g/dL (14.0-18.0); Immature Granulocyte Percent A 0.4 % (0-0.5); Immature Platelet Fraction Pct 2.6 % (0.9-11.2); Lymphocytes Absolute Auto 0.95 K/mm3 (0.9-3.2); Mean Corpuscular HGB Conc 33.0 g/dl (32-36); Mean Corpuscular Hemoglobin 31.6 pg (26-34); Mean Corpuscular Volume 95.6 fl (80-100); Nucleated Red Blood Cells Absolute Auto 0.000 K/mm3 (0.0-0.012); Nucleated Red Blood Cells Perc 0.0 % (0.0-0.2); Platelet Count Result 75 k/mm3 (150-375); Red Blood Count 3.61 M/mm3 (4.6-6.20); White Blood Count 5.3 K/mm3 (4.5-10.0)
[2025-05-20 14:13] LABS: Alanine Aminotransferase 53 U/L (6-50); Albumin Level 3.4 g/dL (3.5-5.1); Alkaline Phosphatase 127 U/L (38-126); Anion Gap 7 mmol/L (4-12); Aspartate Amino Transferase 48 U/L (17-59); Bilirubin,Total 0.8 mg/dL (0.2-1.3); Blood Urea Nitrogen 15 mg/dL (9-20); Calcium 8.8 mg/dL (8.4-10.2); Carbon Dioxide 21 mmol/L (22-30); Chloride 103 mmol/L (98-107); Estimated CRCL calculation 98 ml/min; Estimated Glomerular Filt Rate > 60; Glucose 169 mg/dL (65-110); Potassium 5.0 mmol/L (3.4-5.0); Sodium 131 mmol/L (137-145); Total Protein 7.1 g/dL (6.3-8.2)
--- NOTE | 2025-05-20 14:58 | ED.SKABFB ---
HPI - Skin/Abscess/Foreign Bdy General Chief complaint: Skin/Abscess/Foreign Body Stated complaint: Diabetic ulcer right ankle Time Seen by Provider: 05/20/25 12:55 Source: patient Mode of arrival: ambulatory Limitations: no limitations History of Present Illness HPI narrative: Patient is a 64-year-old male who presents the ED with concern for infection to his right lower leg. Patient reports he noticed an area of inflammation to his right lower anterior chavira around 1 week ago. He thought he may have been bitten by a spider. States it has continued to worsen. He went to an urgent care today and was told there was pus coming from the wound. He was sent here for further evaluation. Reports chills, denies any fevers. Is a diabetic, states his blood sugars have been normal, around 130. Related Data Home Medications ?Medication ?Instructions ?Recorded ?Confirmed ?Last Taken ?Type naproxen 250 mg tablet 250 mg PO BID 09/27/24 02/25/25 Unknown History ferrous sulfate 325 mg (65 mg 325 mg PO BID 02/18/25 02/25/25 Unknown History iron) tablet furosemide 20 mg tablet (Lasix) 20 mg PO QAM 02/18/25 02/25/25 Unknown History spironolactone 50 mg tablet 50 mg PO DAILY 02/18/25 02/25/25 Unknown History Allergies Allergy/AdvReac Type Severity Reaction Status Date / Time Penicillins Allergy Unknown Unknown Verified 05/20/25 12:48 Review of Systems Review of Systems: All systems reviewed & are unremarkable except as noted in HPI. All systems reviewed & are unremarkable except as noted in HPI and below PMFSH Past Medical History Medical History Pleural effusion Bronchitis Pleural effusion on right Acute dyspnea Pneumonia Pancytopenia Balanitis circinata Type 2 diabetes mellitus Diabetes mellitus HTN (hypertension) HLD (hyperlipidemia) Surgical History Surgical History History of hernia repair History of eye surgery x19 Family History Family History Father Family history of chronic obstructive pulmonary disease, Onset Age: 72 Mother Family history of malignant neoplasm, Onset Age: 68 Social History Social History Smoking status: Former smoker Alcohol intake: former Substance use: former Substance use type: does not use Last use: back in college over 40 years ago Do You Feel Safe in your Home?: Yes Lack of Transportation: No Lack of Food: Never True Current Housing: Decline to Answer Concerned About Future Housing: Decline to Answer Difficulty Paying Gas/Electric Bills: Decline to Answer Difficulty Paying for Meds: Decline to Answer Currently Unemployed: Decline to Answer Education: Decline to Answer Difficulty w/ Childcare or Family Care: Decline to Answer Living arrangements: with family Spiritual care concerns: No Exam Narrative: GENERAL: Well appearing, obese with BMI of 31.8, non-toxic, in no acute distress. HEAD: Normocephalic, atraumatic. RESPIRATORY: Airway patent, respirations nonlabored. Clear to auscultation bilaterally, no rales, rhonchi, wheezing. CARDIOVASCULAR: Regular rate and rhythm. Pedal pulses intact and easily palpable MUSCULOSKELETAL: Moves all extremities. No gross deformities. Circular area of scabbing to R lower anterior chavira, with surrounding erythema to medial/lateral lower legs, no significant warmth. No obvious fluctuance but small area of pus draining from central scabbed region. Mild focal TTP SKIN: Warm, dry, normal color. NEURO: A&O X3. Speech clear. Cranial nerves II-XII grossly intact. Steady gait. No ataxic movements. PSYCHIATRIC: Appropriate mood and affect. Normal interaction. Course Vital Signs Vital signs: Vital Signs Temperature 98.2 F 05/20/25 12:46 Pulse Rate 96 05/20/25 12:46 Respiratory Rate 16 05/20/25 12:46 Blood Pressure 127/58 L 05/20/25 12:46 Pulse Oximetry 99 05/20/25 12:46 Oxygen Delivery Room Air 05/20/25 12:46 Temperature 98.2 F 05/20/25 12:46 Pulse Rate 96 05/20/25 12:46 Respiratory Rate 16 05/20/25 12:46 Blood Pressure 127/58 L 05/20/25 12:46 Pulse Oximetry 99 05/20/25 12:46 Oxygen Delivery Room Air 05/20/25 12:46 Procedures Abscess I/D lower extremity: Date of Incision: 05/20/25 Time of Incision: 15:10 Side (if applicable): right Sedation/analgesia: none Local Anesthetic: lidocaine 1% Amount of anesthesia used (mL): 4 Technique: incised with #11 blade and probed loculations Amount of fluid expressed (mL): 1 Irrigation: Yes Packing used?: none I&D Results: Pus and Blood Complications: other (none) MDM - Skin/Abscess/Foreign Bdy MDM Narrative Medical decision making narrative: Exam concerning for cellulitis with possible small abscess. Small area of pus draining. Wound culture obtained. Soft tissue ultrasound showing phlegmonous changes, no organized drainable fluid collection. Partial I&D was performed in the ED to open up already draining area. Patient tolerated procedure well. Will be started on antibiotics. Laboratory studies are reassuring. No leukocytosis. Chronic thrombocytopenia, consistent with previous records. Blood sugars very mildly elevated to 169. Patient advised to watch blood sugars at home, follow-up closely with PCP. Feel he is safe for discharge home. Patient is in agreement this plan, he does not wish to be admitted at this time. He has a follow-up appointment with his primary care doctor on Sunday. Discussed strict return precautions. Patient voiced understanding. Discharged in stable condition. Medical Records Attestation: I reviewed the patient's medical records. Lab Data Attestation: I reviewed the patient's lab results. 05/20/25 13:57 05/20/25 13:57 Labs: Lab Results 05/20/25 Range/Units 13:57 WBC 5.3 (4.5-10.0) K/mm3 RBC 3.61 L (4.6-6.20) M/mm3 Hgb 11.4 L (14.0-18.0) g/dL Hct 34.5 L (42.0-52.0) % MCV 95.6 (80-100) fl MCH 31.6 (26-34) pg MCHC 33.0 (32-36) g/dl RDW 13.5 (11.5-14.5) % Plt Count 75 L (150-375) k/mm3 MPV 10.4 (7.4-10.4) fl Immature Gran % (Auto) 0.4 (0-0.5) % Neut % (Auto) 66.0 (45.5-73.1) % Lymph % (Auto) 18.0 L (18.3-44.2) % Cameron % (Auto) 12.7 H (2.6-8.5) % Eos % (Auto) 2.1 (0-4.4) % Baso % (Auto) 0.8 (0.2-1.2) % Lymph # (Auto) 0.95 (0.9-3.2) K/mm3 Cameron # (Auto) 0.7 H (0.1-0.6) K/mm3 Eos # (Auto) 0.1 (0-0.3) K/mm3 Baso # (Auto) 0.0 (0.0-0.1) K/mm3 Abs Immat Gran (auto) 0.02 (0.00-0.031) K/mm3 Absolute Neuts (auto) 3.5 (1.3-6.7) K/mm3 Absolute Nucleated RBC 0.000 (0.0-0.012) K/mm3 Nucleated RBC % 0.0 (0.0-0.2) % % Immature Plt Fraction 2.6 (0.9-11.2) % Sodium 131 L (137-145) mmol/L Potassium 5.0 (3.4-5.0) mmol/L Chloride 103 (98-107) mmol/L Carbon Dioxide 21 L (22-30) mmol/L Anion Gap 7 (4-12) mmol/L BUN 15 D (9-20) mg/dL Creatinine 0.81 (0.7-1.3) mg/dL Estim Creat Clear Calc 98 ml/min Estimated GFR > 60 (59 - ) Glucose 169 H (65-110) mg/dL Calcium 8.8 (8.4-10.2) mg/dL Total Bilirubin 0.8 (0.2-1.3) mg/dL AST 48 (17-59) U/L ALT 53 H (6-50) U/L Alkaline Phosphatase 127 H (38-126) U/L Total Protein 7.1 (6.3-8.2) g/dL Albumin 3.4 L (3.5-5.1) g/dL Imaging Data Attestation: I personally reviewed and interpreted this imaging study as follows: Radiologist's impression: ITS Impressions Soft Tissue Ultrasound 05/20/25 14:25 IMPRESSION: 1. Small region of phlegmonous change and surrounding edema in the subcutaneous tissues anterior to the right ankle without an organized drainable abscess. Discharge Plan Discharge Clinical Impression: Cellulitis of right lower extremity Subcutaneous abscess Qualifiers: Site of cutaneous abscess: extremity Site of cutaneous abscess of extremity: lower extremity Laterality: right Qualified Code(s): L02.415 - Cutaneous abscess of right lower limb Patient Disposition: Home Condition: Stable Instructions: Antibiotic Form, Cellulitis (ED), Abscess (ED) Additional Instructions: Take antibiotics as prescribed. Keep wound clean and dry, wash daily with soap and water. Keep covered to avoid contamination. Recommend warm compresses to area. Follow-up closely with your primary care doctor. Return to the ED for worsening or severe symptoms, redness streaking up or down leg, fevers, uncontrolled blood sugars, or any other symptoms of concern. Patient Language: Palestinian Prescriptions: New sulfamethoxazole-trimethoprim [Bactrim DS] 800-160 mg tablet 1 tablet PO Q12H 10 Days Qty: 20 0RF No Action naproxen 250 mg tablet 250 mg PO BID ferrous sulfate 325 mg (65 mg iron) tablet 325 mg PO BID furosemide [Lasix] 20 mg tablet 20 mg PO QAM spironolactone 50 mg tablet 50 mg PO DAILY Rybelsus 7 mg tablet 7 mg PO DAILY Qty: 90 1RF nystatin 100,000 unit/gram cream 1 applic topical TID Qty: 30 4RF nystatin 100,000 unit/mL suspension 1 ml PO DAILY Qty: 60 0RF Rx Instructions: swish and swallow metformin 1,000 mg tablet See Rx Instructions .ROUTE .COMPLEX Qty: 180 2RF Dose Instruction: TAKE 1 TABLET BY MOUTH TWICE DAILY WITH MORNING MEAL AND WITH EVENING MEAL Rx Instructions: TAKE 1 TABLET BY MOUTH TWICE DAILY WITH MORNING MEAL AND WITH EVENING MEAL simvastatin 10 mg tablet See Rx Instructions .ROUTE .COMPLEX Qty: 90 2RF Dose Instruction: Take 1 tablet by mouth once daily Rx Instructions: Take 1 tablet by mouth once daily lisinopril 20 mg tablet See Rx Instructions .ROUTE .COMPLEX Qty: 90 2RF Dose Instruction: Take 1 tablet by mouth once daily Rx Instructions: Take 1 tablet by mouth once daily cyclobenzaprine 10 mg tablet 10 mg PO BID PRN (Reason: muscle spasm) Qty: 30 2RF amlodipine 5 mg tablet See Rx Instructions .ROUTE .COMPLEX Qty: 90 2RF Dose Instruction: Take 1 tablet by mouth once daily Rx Instructions: Take 1 tablet by mouth once daily albuterol sulfate [Ventolin HFA] 90 mcg/actuation HFA aerosol inhaler 2 puff inhalation QID PRN (Reason: shortness of breath or wheezing) Qty: 25.5 2RF Eliquis 2.5 mg tablet 2.5 mg PO BID Qty: 180 2RF dapagliflozin propanediol [Farxiga] 10 mg tablet 10 mg PO QAM 90 Days Qty: 90 4RF Follow-up/Referrals: Dalton Oliva MD [Primary Care Provider, Internal Medicine] Time of Disposition: 15:36
[2025-05-20] MEDS: SULFAMETHOXAZOLE/TRIMETHOPRIM 800/160 MG DS TABLET 1 TAB PO (14:59)
== END 2025-05-20 15:40 | disposition home or self-care (01) ==
PROVIDERS: Emergency Provider Physician Assistant; PCP Emergency Medicine
DX: L02.415 Cutaneous abscess of right lower limb (principal); I10 Essential (primary) hypertension; E11.9 Type 2 diabetes mellitus without complications; E78.5 Hyperlipidemia, unspecified; Z87.01 Personal history of pneumonia (recurrent); Z87.891 Personal history of nicotine dependence; Z79.84 Long term (current) use of oral hypoglycemic drugs; Z79.899 Other long term (current) drug therapy
CPT/HCPCS: 10060; 36415; 76882; 80053; 85025; 85055; 87070; 87077; 87147; 87186; 87205; 99284; A9270

== ENCOUNTER 2025-06-08 13:07 | Outpatient (CLI) | payer MEDICARE, SELFPAY ==
--- NOTE | ~2025-06-08 | MR_ITS ---
EXAMINATION: MR abdomen wo/w con DATE: 06/08/2025 14:13 INDICATION: Cirrhosis TECHNIQUE: Magnetic resonance imaging (MRI) of the abdomen was performed without and with 19 mL Multihance intravenous contrast. Sequences included coronal T2- weighted SS-FSE, coronal and axial FS 2D-FIESTA, axial STIR FSE, axial T2- weighted SS-FSE, axial T2-weighted FS SS-FSE, axial diffusion-weighted SE, axial dual-echo T1-weighted FSPGR, and axial and coronal T1-weighted LAVA. Postcontrast axial T1-weighted LAVA images were obtained in a time course. Postcontrast coronal T1-weighted LAVA images were obtained. COMPARISON: CT dated 05/11/2025 FINDINGS: Smooth enhancing pleural thickening along the periphery chronic small right pleural effusion. Unchanged volume loss right lower lobe with round atelectasis at the posterior basilar right lower lobe. Heart size is normal. No pericardial effusion. Moderate bilateral gynecomastia. Again seen is a shrunken nodular cirrhotic liver. 4 mm T2 hyperintense nonenhancing cyst at the posterior right hepatic lobe. No abnormally enhancing hepatic lesions. Splenomegaly measuring 20.8 cm in length which along with prominent splenorenal collaterals and prominent paraesophageal varices consistent with portal venous hypertension. Gallbladder, pancreas and bilateral adrenal glands are normal. Bilateral T2 hyperintense nonenhancing renal cysts the largest on the right measuring 1.3 cm. No bowel obstruction. No pathologically enlarged abdominal lymphadenopathy. Small amount of ascites scattered throughout the abdomen and visualized pelvis. 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 Chronic anterior wedging at T11-L1. Severe disc height loss with degenerative endplate changes at L1-L2. Otherwise mild lumbar and lower thoracic spondylosis with no evident pathologic marrow replacing process. IMPRESSION: 1. Cirrhosis with stigmata of portal venous hypertension including splenomegaly, splenorenal collaterals and esophageal varices. 2. Small amount of ascites scattered throughout the abdomen and pelvis likely secondary to cirrhosis. 3. Chronic small right pleural effusion with round atelectasis at the posterior basilar segment of the right lower lobe. 4. 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 Reviewed, dictated and finalized at location A. IMPRESSION: 1. Cirrhosis with stigmata of portal venous hypertension including splenomegaly , splenorenal collaterals and esophageal varices. 2. Small amount of ascites scattered throughout the abdomen and pelvis likely s econdary to cirrhosis. 3. Chronic small right pleural effusion with round atelectasis at the posterior basilar segment of the right lower lobe. 4. 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
== END 2025-06-08 13:08 | disposition home or self-care (01) ==
LOC: MICIMG 13:08
PROVIDERS: PCP Emergency Medicine; Visit Provider Internal Medicine Gastroenterology
DX: K74.60 Unspecified cirrhosis of liver (principal); R18.8 Other ascites; K55.059 Acute (reversible) ischemia of intestine, part and extent unspecified
CPT/HCPCS: 74183; A9577

== ENCOUNTER 2025-07-08 07:13 | Outpatient (RCR) | payer MEDICARE, SELFPAY ==
--- NOTE | 2025-06-04 10:26 | PCWOUND ---
WOCN NOTE Patient did not show up for his scheduled appointment today 06/04/25. Patient did not contact wound center to cancel or reschedule.
[2025-06-24 12:30] VITALS: BMI 31.4
--- NOTE | 2025-06-24 13:43 | WNDPHOTO ---
PHOTO ONLY - See Nursing Notes and/ or assessments for documentation.
== END 2025-08-04 10:27 | disposition home or self-care (01) ==
LOC: ANHWOC 07:13
PROVIDERS: PCP Emergency Medicine; Visit Provider Emergency Medicine
DX: L98.9 Disorder of the skin and subcutaneous tissue, unspecified (principal)
CPT/HCPCS: 99212; 99214; G0463